=== PATIENT | female | born 1940 | race American Indian/Alaskan Native ===

== ENCOUNTER 2021-01-31 17:34 | Inpatient (IN) | payer MEDICARE ==
[2021-01-31 18:56] LABS: Basophils # (Auto) 0.1 K/mm3 (0.0-0.1); Basophils % (Auto) 1.4 % (0.0-1.8); Eosinophils # (Auto) 0.2 K/mm3 (0.0-0.4); Hematocrit 35.7 % (30.3-42.9); Hemoglobin 11.5 gm/dl (10.1-14.3); Lymphocytes # (Auto) 1.5 K/mm3 (1.2-5.4); Lymphocytes % (Auto) 15.2 % (13.4-35.0); Mean Corpuscular HGB Conc 32 % (30-34); Mean Corpuscular Volume 98 fl (79-97); Monocytes # (Auto) 1.4 K/mm3 (0.0-0.8); Monocytes % (Auto) 13.7 % (0.0-7.3); Platelet Count 215 K/mm3 (140-440); Red Blood Count 3.65 M/mm3 (3.65-5.03); Red Cell Distribution Width 16.1 % (13.2-15.2)
[2021-01-31 19:06] LABS: INR 0.98 (0.87-1.13)
[2021-01-31 19:07] LABS: Partial Thromboplastin Time 29.3 Sec. (24.2-36.6)
[2021-01-31 19:11] LABS: Albumin 4.3 g/dL (3.9-5); Calcium 9.6 mg/dL (8.4-10.2)
[2021-01-31] MEDS ORDERED: AZITHROMYCIN/NS 500 MG/250 ML 500 MG/250 ML BAG IV ONE (19:14)
[2021-01-31] MEDS ORDERED: cefTRIAXone/NS 2 GM/100 ML 2 GM/100 ML BAG IV ONE (19:14)
[2021-01-31] MEDS ORDERED: dexAMETHasone 20 MG/5 ML VIAL IV ONE (19:15)
--- NOTE | 2021-01-31 19:25 | Emergency Department Report ---
ED Shortness of Breath HPI - General Chief Complaint: Dyspnea/Respdistress Stated Complaint: HIGH BP Time Seen by Provider: 01/31/21 18:05 Source: patient Mode of arrival: Wheelchair Limitations: No Limitations - History of Present Illness Initial Comments: Patient is a 80-year-old F [place] female who is presenting with shortness of breath. Patient states has not been feeling well for approximately a week. Patient has had mild diarrhea cough and body aches. She has been having chills but has not taken her temperature. Patient has not been vaccinated against COVID-19 secondary to her having a history of Guillain-Flaherty. Patient does not get flu shots either. Patient states the cough is productive of clear sputum. Patient was advised to come to the hospital today after dialysis. She did receive her full dialysis. They are also concerned that her blood pressure was significantly elevated after dialysis. - Related Data Home Medications Medication Instructions Recorded Confirmed Last Taken Aspirin [Aspirin BABY CHEW TAB] 81 mg PO DAILY 03/30/14 12/09/20 12/05/20 20:00 Febuxostat [Uloric] 80 mg PO DAILY 03/30/14 12/09/20 12/05/20 20:00 Levothyroxine [Synthroid] 88 mcg PO DAILY 03/30/14 12/09/20 12/05/20 20:00 Metoprolol [Lopressor TAB] 50 mg PO DAILY 03/30/14 12/09/20 12/05/20 20:00 Montelukast [Singulair] 10 mg PO DAILY 03/30/14 12/09/20 12/05/20 20:00 Quetiapine Fumarate [QUEtiapine 300 mg PO DAILY 03/30/14 12/09/20 12/05/20 20:00 Fumarate] Rosuvastatin (Nf) [Crestor] 20 mg PO DAILY 03/30/14 12/09/20 12/05/20 20:00 clonazePAM 2 mg PO HS 03/30/14 12/09/20 12/05/20 20:00 sitaGLIPtin [Januvia] 50 mg PO DAILY 03/30/14 12/09/20 12/05/20 20:00 Insulin Detemir (Nf) [Levemir 20 unit SQ BID 05/28/14 12/09/20 12/05/20 20:00 Flextouch] Insulin Lispro [HumaLOG] 5 unit SQ DAILY 05/28/14 12/09/20 12/05/20 20:00 Promethazine [Phenergan] 25 mg PO Q6H PRN 05/28/14 12/09/20 12/05/20 20:00 Furosemide [Lasix] 40 mg PO DAILY 05/29/14 12/09/20 12/05/20 20:00 Tramadol HCl/Acetaminophen 1 each PO Q6HR PRN 05/29/14 12/09/20 12/05/20 20:00 [Tramadol-Acetaminophn 37.5-325] Previous Rx's Medication Instructions Recorded Last Taken Type Albuterol Mdi (or & Nicu Only) 2 puff IH QID PRN #1 inhalation 03/30/14 12/05/20 20:00 Rx [ProAir HFA Inhaler] Ciprofloxacin HCl [Cipro] 500 mg PO BID #10 tablet 05/29/14 12/05/20 20:00 Rx HYDROcodone/APAP 10-325 [[place] 1 each PO Q8HR PRN #20 tablet 05/29/14 12/05/20 20:00 Rx 10-325 mg TAB] Ondansetron [Zofran Odt] 4 mg PO Q8HR PRN #20 tab.rapdis 05/29/14 12/05/20 20:00 Rx Allergies Allergy/AdvReac Type Severity Reaction Status Date / Time celecoxib Allergy Unknown Verified 05/28/14 23:14 Sulfa (Sulfonamide AdvReac Nausea Verified 03/30/14 16:40 Antibiotics) ED Review of Systems ROS: Stated complaint: HIGH BP Other details as noted in HPI Comment: All other systems reviewed and negative ED Past Medical Hx - Past Medical History Previous Medical History?: Yes Hx Hypertension: Yes Hx Diabetes: Yes Hx Renal Disease: Yes (Dialysis T, Th, Sat) - Surgical History Past Surgical History?: Yes Hx Coronary Stent: Yes Additional Surgical History: stents 2008 - Social History Smoking Status: Never Smoker - Medications Home Medications: Home Medications Medication Instructions Recorded Confirmed Last Taken Type Albuterol Mdi (or & Nicu Only) 2 puff IH QID PRN #1 inhalation 03/30/14 12/09/20 12/05/20 20:00 Rx [ProAir HFA Inhaler] Aspirin [Aspirin BABY CHEW TAB] 81 mg PO DAILY 03/30/14 12/09/20 12/05/20 20:00 History Febuxostat [Uloric] 80 mg PO DAILY 03/30/14 12/09/20 12/05/20 20:00 History Levothyroxine [Synthroid] 88 mcg PO DAILY 03/30/14 12/09/20 12/05/20 20:00 History Metoprolol [Lopressor TAB] 50 mg PO DAILY 03/30/14 12/09/20 12/05/20 20:00 History Montelukast [Singulair] 10 mg PO DAILY 03/30/14 12/09/20 12/05/20 20:00 History Quetiapine Fumarate [QUEtiapine 300 mg PO DAILY 03/30/14 12/09/20 12/05/20 20:00 History Fumarate] Rosuvastatin (Nf) [Crestor] 20 mg PO DAILY 03/30/14 12/09/20 12/05/20 20:00 History clonazePAM 2 mg PO HS 03/30/14 12/09/20 12/05/20 20:00 History sitaGLIPtin [Januvia] 50 mg PO DAILY 03/30/14 12/09/20 12/05/20 20:00 History Insulin Detemir (Nf) [Levemir 20 unit SQ BID 05/28/14 12/09/20 12/05/20 20:00 History Flextouch] Insulin Lispro [HumaLOG] 5 unit SQ DAILY 05/28/14 12/09/20 12/05/20 20:00 History Promethazine [Phenergan] 25 mg PO Q6H PRN 05/28/14 12/09/20 12/05/20 20:00 History Ciprofloxacin HCl [Cipro] 500 mg PO BID #10 tablet 05/29/14 12/09/20 12/05/20 20:00 Rx Furosemide [Lasix] 40 mg PO DAILY 05/29/14 12/09/20 12/05/20 20:00 History HYDROcodone/APAP 10-325 [[place] 1 each PO Q8HR PRN #20 tablet 05/29/14 12/09/20 12/05/20 20:00 Rx 10-325 mg TAB] Ondansetron [Zofran Odt] 4 mg PO Q8HR PRN #20 tab.rapdis 05/29/14 12/09/20 0 12/05/20 20:00 Rx Tramadol HCl/Acetaminophen 1 each PO Q6HR PRN 05/29/14 12/09/20 12/05/20 20:00 History [Tramadol-Acetaminophn 37.5-325] ED Physical Exam - General Limitations: No Limitations General appearance: alert, in no apparent distress - Head Head exam: Present: atraumatic, normocephalic - Eye Eye exam: Present: normal appearance, PERRL, EOMI - ENT ENT exam: Present: mucous membranes moist - Neck Neck exam: Present: normal inspection - Respiratory Respiratory exam: Present: normal lung sounds bilaterally, respiratory distress (constant cough), rhonchi. Absent: wheezes, rales - Cardiovascular Cardiovascular Exam: Present: regular rate, normal rhythm, normal heart sounds. Absent: systolic murmur, diastolic murmur, rubs, gallop - GI/Abdominal GI/Abdominal exam: Present: soft, normal bowel sounds. Absent: distended, tenderness, guarding, rebound - Extremities Exam Extremities exam: Present: normal inspection - Back Exam Back exam: Present: normal inspection - Neurological Exam Neurological exam: Present: alert, oriented X3 - Psychiatric Psychiatric exam: Present: normal affect, normal mood - Skin Skin exam: Present: warm, dry, intact, normal color. Absent: rash ED Course Vital Signs 01/31/21 01/31/21 17:53 18:41 Temperature 99.1 F Pulse Rate 78 74 Respiratory 20 Rate Blood Pressure 174/68 185/71 O2 Sat by Pulse 91 Oximetry ED Medical Decision Making - Lab Data Result diagrams: 01/31/21 18:34 01/31/21 18:34 Lab Results 01/31/21 01/31/21 01/31/21 Range/Units 18:34 18:34 18:34 WBC 10.0 (4.5-11.0) K/mm3 RBC 3.65 (3.65-5.03) M/mm3 Hgb 11.5 (10.1-14.3) gm/dl Hct 35.7 (30.3-42.9) % MCV 98 H (79-97) fl MCH 31 (28-32) pg MCHC 32 (30-34) % RDW 16.1 H (13.2-15.2) % Plt Count 215 (140-440) K/mm3 Lymph % (Auto) 15.2 (13.4-35.0) % [place] % (Auto) 13.7 H (0.0-7.3) % Eos % (Auto) 2.0 (0.0-4.3) % Baso % (Auto) 1.4 (0.0-1.8) % Lymph # (Auto) 1.5 (1.2-5.4) K/mm3 [place] # (Auto) 1.4 H (0.0-0.8) K/mm3 Eos # (Auto) 0.2 (0.0-0.4) K/mm3 Baso # (Auto) 0.1 (0.0-0.1) K/mm3 Seg Neutrophils % 67.7 (40.0-70.0) % Seg Neutrophils # 6.8 (1.8-7.7) K/mm3 PT 14.1 (12.2-14.9) Sec. INR 0.98 (0.87-1.13) APTT 29.3 (24.2-36.6) Sec. Sodium 141 (137-145) mmol/L Potassium 5.6 H (3.6-5.0) mmol/L Chloride 100.4 (98-107) mmol/L Carbon Dioxide 25 (22-30) mmol/L Anion Gap 21 mmol/L BUN 11 (7-17) mg/dL Creatinine 3.3 H (0.6-1.2) mg/dL Estimated GFR 16 ml/min BUN/Creatinine Ratio 3 % Glucose 105 H (65-100) mg/dL Calcium 9.6 (8.4-10.2) mg/dL Total Bilirubin 0.70 (0.1-1.2) mg/dL AST 68 H (5-40) units/L ALT 18 (7-56) units/L Alkaline Phosphatase 112 (35-129) units/L Total Protein 6.9 (6.3-8.2) g/dL Albumin 4.3 (3.9-5) g/dL Albumin/Globulin Ratio 1.7 % - Radiology Data Chest x-ray reviewed by me and it appears that the patient has a right middle and lower lobe infiltrate. Also some other hazy patchy infiltrates present. Possible the patient may have Covid pneumonia. - Medical Decision Making We will place the patient on oxygen. Patient given Decadron Rocephin azithromycin. Will admit the patient for further management and patient will be tested for Covid. Critical care attestation.: If time is entered above; I have spent that time in minutes in the direct care of this critically ill patient, excluding procedure time. ED Disposition Clinical Impression: Suspected COVID-19 virus infection, Pneumonia, Hypoxia, ESRD (end stage renal disease) Disposition: ADMITTED INPATIENT Is pt being admited?: Yes Does the pt Need Aspirin: No Condition: Stable Instructions: Bacterial Pneumonia (ED) Time of Disposition: 19:25
[2021-01-31 20:01] LABS: C-Reactive Protein 2.7 mg/dL (0.00-1.30)
--- NOTE | 2021-01-31 20:08 | XRay Report ---
CHEST 2 VIEWS INDICATION / CLINICAL INFORMATION: dyspnea, cough. COMPARISON: None available. FINDINGS: SUPPORT DEVICES: None. HEART / MEDIASTINUM: No significant abnormality. LUNGS / PLEURA: Mild pulmonary vascular indistinctness. There are bibasilar opacities with small left and trace right pleural effusion. No pneumothorax. ADDITIONAL FINDINGS: No significant additional findings. IMPRESSION: 1. Findings suggesting mild pulmonary edema. Signer Name: Sunny Obregon DO Signed: 01/31/2021 8:04 PM Workstation Name: [id number]
--- NOTE | 2021-01-31 20:19 | History and Physical Report ---
History of Present Illness Chief complaint: I do not feel good History of present illness: 80 YO Female with ESRD on HD(T,R,Sa), DM, HTN, HLD, Hypothyroidism, CAD S/P Stent Placement, Vascular Dementia, Cerebral Atherosclerosis, Obesity Hypoventilation Syndrome presents ED for evaluation. Patient reports "I do not feel good". Patient states that she had experienced dry cough, body aches, malaise, fatigue, diminished exercise tolerance, subjective fever, diminished sense of smell, diminished sense of taste over the past 1 week with persistent and worsening symptoms over the same timeframe. Patient transported to [facility] via private vehicle for further care and evaluation of the aforementioned symptoms. The patient was seen and evaluated in the emergency department. All lab and imaging studies reviewed. Patient was found to have a pulse oximetry of 86% on exertion which is consistent with acute hypoxemic respiratory failure. Chest x- ray revealed bilateral pneumonia. Patient admitted to medical floor and initiated on pneumonia protocol as well as coronavirus protocol. No reports of chills, chest pain, palpitation, skin rash, recent ill contacts, trauma. Prior admission on 12-25 reviewed. All medication listed at time of admission has been reconciled. Patient is not vaccinated against COVID-19. Advanced care planning conducted in ED. Past History Past Medical History: diabetes, ESRD, hypertension Past Surgical History: Other (Dialysis access) Social history: . denies: smoking, alcohol abuse Family history: diabetes, hypertension Medications and Allergies Allergies Allergy/AdvReac Type Severity Reaction Status Date / Time celecoxib Allergy Unknown Verified 05/28/14 23:14 Sulfa (Sulfonamide AdvReac Nausea Verified 03/30/14 16:40 Antibiotics) Home Medications Medication Instructions Recorded Confirmed Last Taken Type Albuterol Mdi (or & Nicu Only) 2 puff IH QID PRN #1 inhalation 03/30/14 12/09/20 12/05/20 20:00 Rx [ProAir HFA Inhaler] Aspirin [Aspirin BABY CHEW TAB] 81 mg PO DAILY 03/30/14 12/09/20 12/05/20 20:00 History Febuxostat [Uloric] 80 mg PO DAILY 03/30/14 12/09/20 12/05/20 20:00 History Levothyroxine [Synthroid] 88 mcg PO DAILY 03/30/14 12/09/20 12/05/20 20:00 History Metoprolol [Lopressor TAB] 50 mg PO DAILY 03/30/14 12/09/20 12/05/20 20:00 History Montelukast [Singulair] 10 mg PO DAILY 03/30/14 12/09/20 12/05/20 20:00 History Quetiapine Fumarate [QUEtiapine 300 mg PO DAILY 03/30/14 12/09/20 12/05/20 20:00 History Fumarate] Rosuvastatin (Nf) [Crestor] 20 mg PO DAILY 03/30/14 12/09/20 12/05/20 20:00 History clonazePAM 2 mg PO HS 03/30/14 12/09/20 12/05/20 20:00 History sitaGLIPtin [Januvia] 50 mg PO DAILY 03/30/14 12/09/20 12/05/20 20:00 History Insulin Detemir (Nf) [Levemir 20 unit SQ BID 05/28/14 12/09/20 12/05/20 20:00 History Flextouch] Insulin Lispro [HumaLOG] 5 unit SQ DAILY 05/28/14 12/09/20 12/05/20 20:00 History Promethazine [Phenergan] 25 mg PO Q6H PRN 05/28/14 12/09/20 12/05/20 20:00 History Ciprofloxacin HCl [Cipro] 500 mg PO BID #10 tablet 05/29/14 12/09/20 12/05/20 20:00 Rx Furosemide [Lasix] 40 mg PO DAILY 05/29/14 12/09/20 12/05/20 20:00 History HYDROcodone/APAP 10-325 [[place] 1 each PO Q8HR PRN #20 tablet 05/29/14 12/09/20 12/05/20 20:00 Rx 10-325 mg TAB] Ondansetron [Zofran Odt] 4 mg PO Q8HR PRN #20 tab.rapdis 05/29/14 12/09/20 12/05/20 20:00 Rx Tramadol HCl/Acetaminophen 1 each PO Q6HR PRN 05/29/14 12/09/20 12/05/20 20:00 History [Tramadol-Acetaminophn 37.5-325] Review of Systems Constitutional: fever, weakness, malaise, lethargy, no weight loss Ears, nose, mouth and throat: other (Diminished sense of smell, diminished sense of taste), no ear pain, no ear discharge, no decreased hearing, no nose pain, no nasal congestion Cardiovascular: no chest pain, no palpitations, no edema, no syncope Respiratory: cough, shortness of breath Gastrointestinal: no abdominal pain, no nausea, no vomiting, no diarrhea Genitourinary Female: no pelvic pain, no flank pain, no dysuria, no urinary frequency, no urgency Rectal: no pain, no incontinence, no bleeding Musculoskeletal: no neck stiffness, no neck pain, no shooting arm pain, no low back pain, no shooting leg pain Integumentary: no rash, no pruritis, no redness, no wounds Neurological: no head injury, no transient paralysis, no parathesias, no numbness Psychiatric: no anxiety, no sleep disturbances, no change in appetite, no change in libido, no suicidal ideation Endocrine: no cold intolerance, no polyphagia, no polyuria, no nocturia, no excessive sweating Hematologic/Lymphatic: no easy bruising, no easy bleeding Allergic/Immunologic: no urticaria, no allergic rhinitis, no wheezing Exam - Constitutional Vitals: Temp Pulse Resp BP Pulse Ox 99.1 F 74 20 185/71 91 01/31/21 17:53 01/31/21 18:41 01/31/21 17:53 01/31/21 18:41 01/31/21 17:53 General appearance: Present: mild distress - EENT Eyes: Present: PERRL ENT: hearing intact, clear oral mucosa - Neck Neck: Present: supple, normal ROM - Respiratory Respiratory effort: labored, accessory muscle use, stridor Respiratory: bilateral: diminished, rhonchi - Cardiovascular Heart Sounds: Present: S1 & S2. Absent: rub, click - Extremities Extremities: pulses symmetrical, No edema Peripheral Pulses: within normal limits - Abdominal General gastrointestinal: Present: soft, non-tender, non-distended, normal bowel sounds Female genitourinary: Present: normal - Integumentary Integumentary: Present: clear, warm, dry - Musculoskeletal Musculoskeletal: gait normal, strength equal bilaterally - Psychiatric Psychiatric: appropriate mood/affect, intact judgment & insight - Neurologic Neurologic: CNII-XII intact, moves all extremities Results - Labs CBC & Chem 7: 01/31/21 18:34 01/31/21 18:34 Labs: Abnormal lab results 01/31/21 01/31/21 01/31/21 Range/Units 18:34 18:34 19:28 MCV 98 H (79-97) fl RDW 16.1 H (13.2-15.2) % [place] % (Auto) 13.7 H (0.0-7.3) % [place] # (Auto) 1.4 H (0.0-0.8) K/mm3 D-Dimer 594.70 H (0-234) ng/mlDDU Potassium 5.6 H (3.6-5.0) mmol/L Creatinine 3.3 H (0.6-1.2) mg/dL Glucose 105 H (65-100) mg/dL Ferritin (10.0-200.0) ng/mL AST 68 H (5-40) units/L Lactate Dehydrogenase (91-180) units/L C-Reactive Protein (0.00-1.30) mg/dL 01/31/21 01/31/21 Range/Units 19:28 19:28 MCV (79-97) fl RDW (13.2-15.2) % [place] % (Auto) (0.0-7.3) % [place] # (Auto) (0.0-0.8) K/mm3 D-Dimer (0-234) ng/mlDDU Potassium (3.6-5.0) mmol/L Creatinine (0.6-1.2) mg/dL Glucose (65-100) mg/dL Ferritin 959.7 H (10.0-200.0) ng/mL AST (5-40) units/L Lactate Dehydrogenase 321 H (91-180) units/L C-Reactive Protein 2.70 H (0.00-1.30) mg/dL Assessment and Plan - Patient Problems (1) Acute hypoxemic respiratory failure Status: Acute Plan to address problem: Chest x-ray, supplemental oxygen, pulse oximetry, nebulizer therapy, pulmonary toilet. Noninvasive positive pressure ventilation as clinically indicated patient is unable to maintain pulse oximetry on supplemental oxygen via nasal c annula. (2) Suspected 2019 novel coronavirus infection Status: Acute Plan to address problem: Coronavirus protocol: IV steroid therapy, IV antibiotic therapy, supplemental oxygen, pulse oximetry, vitamin D therapy, vitamin C therapy, zinc therapy, prone positioning while in bed, pulmonary toilet. Prophylactic anticoagulation. (3) Pneumonia Status: Acute Plan to address problem: Pneumonia protocol: Chest x-ray, CBC, CMP, IV antibiotic therapy, supplemental o xygen, pulse oximetry, nebulizer therapy (4) End stage renal disease Status: Acute Plan to address problem: Nephrology team consulted in ED, strict I's/O, monitor urine output every shift, (5) Hypertension Status: Acute Qualifiers: Hypertension type: primary hypertension Qualified Code(s): I10 - Essential (primary) hypertension Plan to address problem: Monitor blood pressure every shift, continue medical management. (6) Diabetes Status: Acute Plan to address problem: Consistent carbohydrate diet, Accu-Chek, hypoglycemia protocol, insulin protocol. (7) Hyperlipidemia Status: Acute Qualifiers: Hyperlipidemia type: mixed hyperlipidemia Qualified Code(s): E78.2 - Mixed hyperlipidemia Plan to address problem: Statin therapy, low-cholesterol diet, supportive care. (8) Hypothyroidism Status: Acute Qualifiers: Hypothyroidism type: unspecified Qualified Code(s): E03.9 - Hypothyroidism, unspecified Plan to address problem: Continue Synthroid therapy, supportive care, continue medical management (9) DVT prophylaxis Status: Acute Plan to address problem: SCD bilateral lower extremities while in bed, prophylactic anticoagulation (10) Advance care planning Status: Acute Plan to address problem: Disease education conducted, care plan discussed, diagnoses discussed, patient is full code, patient knowledges understanding and agreement with care plan, +30 minutes.
[2021-01-31] MEDS ORDERED: ONDANSETRON 4 MG/2 ML INJ IV PRN (20:20)
[2021-01-31] MEDS ORDERED: HYDROmorphone 1 MG/1 ML INJ IV PRN (20:20)
[2021-01-31] MEDS ORDERED: ALBUTEROL 2.5 MG/3 ML NEBU IH PRN (20:20)
[2021-01-31] MEDS ORDERED: oxyCODONE /ACETAMINOPHEN 5-325MG TAB PO PRN (20:20)
[2021-01-31] MEDS ORDERED: ACETAMINOPHEN 325 MG TAB PO PRN (20:20)
[2021-01-31] MEDS ORDERED: PROMETHAZINE 25 MG TAB PO PRN (20:24)
[2021-01-31] MEDS ORDERED: DEXTROSE 50% IN WATER (25GM) 50 ML SYRINGE IV PRN (20:30)
[2021-01-31] MEDS ORDERED: AZITHROMYCIN/NS 500 MG/250 ML 500 MG/250 ML BAG IV SCH (21:00)
[2021-01-31] MEDS: HEPARIN 5,000 UNIT/1 ML VIAL SUB-Q SCH (23:10)
[2021-01-31] MEDS: ASCORBIC ACID 500 MG TAB PO SCH (23:11)
[2021-01-31] MEDS: methylPREDNISolone Sod Succinate 40 MG/1 ML INJ IV SCH (23:11)
[2021-01-31] MEDS: ZINC SULFATE 220 MG CAP PO SCH (23:11)
[2021-01-31] MEDS: cefTRIAXone/NS 2 GM/100 ML 2 GM/100 ML BAG IV SCH (23:12)
[2021-02-01] MEDS: INSULIN LISPRO 100 UNIT/ML SUB-Q SCH ×4 (00:30→17:13)
[2021-02-01] MEDS: methylPREDNISolone Sod Succinate 40 MG/1 ML INJ IV SCH ×3 (05:51→22:26)
[2021-02-01 06:37] LABS: Basophils % (Auto) 0.7 % (0.0-1.8); Eosinophils % (Auto) 0.1 % (0.0-4.3); Hematocrit 34.8 % (30.3-42.9); Hemoglobin 11.1 gm/dl (10.1-14.3); Lymphocytes # (Auto) 0.9 K/mm3 (1.2-5.4); Lymphocytes % (Auto) 13.9 % (13.4-35.0); Mean Corpuscular HGB Conc 32 % (30-34); Mean Corpuscular Volume 97 fl (79-97); Monocytes # (Auto) 0.1 K/mm3 (0.0-0.8); Monocytes % (Auto) 1.4 % (0.0-7.3); Platelet Count 203 K/mm3 (140-440); Red Blood Count 3.57 M/mm3 (3.65-5.03); Red Cell Distribution Width 15.6 % (13.2-15.2)
[2021-02-01 06:53] LABS: Albumin 3.9 g/dL (3.9-5); Calcium 9.1 mg/dL (8.4-10.2)
--- NOTE | 2021-02-01 08:03 | Consultation ---
History of Present Illness - Reason for Consult Consult date: 02/01/21 end stage renal disease - History of Present Illness The patient is a 80 YO female with history significant for Obesity, DM, HTN, Anemia, Dementia, CAD s/p stent and ESRD on HD(TTS) who presented to [facility] ED 01/31 with c/o sob. Patient is a poor historian and there was no family member at the bedside. Patient reports cough, orthopnea, malaise and fatigue. Pt was found hypoxic in ED. CXR showed mild pulmonary edema. Labs and vitals reviewed. Nephrology was consulted for ESRD management. Past History Past Medical History: anemia, diabetes, dialysis, ESRD, hypertension Past Surgical History: Other (Dialysis access) Social history: . denies: smoking, alcohol abuse Family history: diabetes, hypertension Medications and Allergies Allergies Allergy/AdvReac Type Severity Reaction Status Date / Time celecoxib Allergy Unknown Verified 05/28/14 23:14 Sulfa (Sulfonamide AdvReac Nausea Verified 03/30/14 16:40 Antibiotics) Home Medications Medication Instructions Recorded Confirmed Last Taken Type Albuterol Mdi (or & Nicu Only) 2 puff IH QID PRN #1 inhalation 03/30/14 12/09/20 12/05/20 20:00 Rx [ProAir HFA Inhaler] Aspirin [Aspirin BABY CHEW TAB] 81 mg PO DAILY 03/30/14 02/01/21 01/30/21 08:40 History Febuxostat [Uloric] 80 mg PO DAILY 03/30/14 12/09/20 12/05/20 20:00 History Levothyroxine [Synthroid] 88 mcg PO DAILY 03/30/14 02/01/21 01/30/21 06:30 History Metoprolol [Lopressor TAB] 50 mg PO DAILY 03/30/14 12/09/20 12/05/20 20:00 History Montelukast [Singulair] 10 mg PO DAILY 03/30/14 12/09/20 12/05/20 20:00 History Quetiapine Fumarate [QUEtiapine 300 mg PO DAILY 03/30/14 02/01/21 01/30/21 21:00 History Fumarate] Rosuvastatin (Nf) [Crestor] 20 mg PO DAILY 03/30/14 02/01/21 12/05/20 20:00 History clonazePAM 2 mg PO HS 03/30/14 02/01/21 01/31/21 23:00 History sitaGLIPtin [Januvia] 50 mg PO DAILY 03/30/14 02/01/21 01/30/21 08:30 History Insulin Detemir (Nf) [Levemir 20 unit SQ BID 05/28/14 12/09/20 12/05/20 20:00 History Flextouch] Insulin Lispro [HumaLOG] 5 unit SQ DAILY 05/28/14 02/01/21 01/30/21 20:45 History Promethazine [Phenergan] 25 mg PO Q6H PRN 05/28/14 12/09/20 12/05/20 20:00 History Ciprofloxacin HCl [Cipro] 500 mg PO BID #10 tablet 05/29/14 12/09/20 12/05/20 20:00 Rx Furosemide [Lasix] 40 mg PO DAILY 05/29/14 12/09/20 12/05/20 20:00 History HYDROcodone/APAP 10-325 [[place] 1 each PO Q8HR PRN #20 tablet 05/29/14 02/01/21 01/30/21 20:00 Rx 10-325 mg TAB] Ondansetron [Zofran Odt] 4 mg PO Q8HR PRN #20 tab.rapdis 05/29/14 02/01/21 01/29/21 20:00 Rx Tramadol HCl/Acetaminophen 1 each PO Q6HR PRN 05/29/14 12/09/20 12/05/20 20:00 History [Tramadol-Acetaminophn 37.5-325] Active Meds: Active Medications Acetaminophen (Acetaminophen 325 Mg Tab) 650 mg PO Q4H PRN PRN Reason: Pain MILD(1-3)/Fever >100.5/LOBATO Albuterol (Albuterol 2.5 Mg/3 Ml Nebu) 2.5 mg IH Q4HRT PRN PRN Reason: Shortness Of Breath Ascorbic Acid (Ascorbic Acid 500 Mg Tab) 500 mg PO BID [facility] Last Admin: 01/31/21 23:11 Dose: 500 mg Documented by: Aspirin (Aspirin 81 Mg Tab Chew) 81 mg PO DAILY [facility] Atorvastatin Calcium (Atorvastatin 40 Mg Tab) 40 mg PO QHS [facility] Cholecalciferol (Cholecalciferol (Vit D3) 400 Unit Tab) 1,000 unit PO QDAY [facility] Clonazepam (Clonazepam 2 Mg Tab) 2 mg PO HS [facility] Last Admin: 01/31/21 23:11 Dose: 2 mg Documented by: Dextrose (Dextrose 50% In Water (25gm) 50 Ml Syringe) 50 ml IV Q30MIN PRN; Protocol PRN Reason: Hypoglycemia Furosemide (Furosemide 40 Mg Tab) 40 mg PO DAILY [facility] Heparin Sodium (Porcine) (Heparin 5,000 Unit/1 Ml Vial) 5,000 unit SUB-Q Q12HR [facility] Last Admin: 01/31/21 23:10 Dose: 5,000 unit Documented by: Hydromorphone HCl (Hydromorphone 1 Mg/1 Ml Inj) 0.5 mg IV Q23H PRN PRN Reason: Pain , Severe (7-10) Ceftriaxone Sodium (Rocephin/Ns 2 Gm/100 Ml) 2 gm in 100 mls @ 200 mls/hr IV Q24H [facility]; Protocol Stop: 02/04/21 21:29 Last Admin: 01/31/21 23:12 Dose: Not Given Documented by: Azithromycin (Zithromax/Ns) 500 mg in 250 mls @ 250 mls/hr IV Q24H [facility]; Protocol Stop: 02/04/21 20:59 Insulin Human Lispro (Insulin Lispro 100 Unit/Ml) 0 unit SUB-Q Q6HR [facility]; Protocol Last Admin: 02/01/21 05:51 Dose: 3 unit Documented by: Levothyroxine Sodium (Levothyroxine 88 Mcg Tab) 88 mcg PO DAILY [facility] Methylprednisolone Sodium Succinate (Methylprednisolone Sod Succinate 40 Mg/1 Ml Inj) 40 mg IV Q8HR [facility] Last Admin: 02/01/21 05:51 Dose: 40 mg Documented by: Metoprolol Tartrate (Metoprolol Tartrate 50 Mg Tab) 50 mg PO DAILY [facility] Miscellaneous Medication (Febuxostat [Uloric]) 80 mg PO DAILY [facility] Montelukast Sodium (Montelukast 10 Mg Tab) 10 mg PO DAILY [facility] Ondansetron HCl (Ondansetron 4 Mg/2 Ml Inj) 4 mg IV Q8H PRN PRN Reason: Nausea And Vomiting Oxycodone/Acetaminophen (Oxycodone /Acetaminophen 5-325mg Tab) 1 tab PO Q16H PRN PRN Reason: Pain, Moderate (4-6) Promethazine HCl (Promethazine 25 Mg Tab) 25 mg PO Q6H PRN PRN Reason: Nausea Quetiapine Fumarate (Quetiapine 100 Mg Tab) 300 mg PO DAILY [facility] Sodium Chloride (Sodium Chloride 0.9% 10 Ml Flush Syringe) 10 ml IV BID [facility] Last Admin: 01/31/21 23:13 Dose: 10 ml Documented by: Sodium Chloride (Sodium Chloride 0.9% 10 Ml Flush Syringe) 10 ml IV PRN PRN PRN Reason: LINE FLUSH Zinc Sulfate (Zinc Sulfate 220 Mg Cap) 220 mg PO BID [facility] Last Admin: 01/31/21 23:11 Dose: 220 mg Documented by: Review of Systems ROS unobtainable: due to mental status Exam - Vital Signs Vital signs: Vital Signs Temp Pulse Resp BP Pulse Ox 99.1 F 78 20 174/68 91 01/31/21 17:53 01/31/21 17:53 01/31/21 17:53 01/31/21 17:53 01/31/21 17:53 Results - Lab Results 02/01/21 Unknown 02/01/21 Unknown Most recent lab results Calcium 9.1 mg/dL (8.4-10.2) 02/01/21 Unknown Assessment and Plan 1. ESRD: Patient is on maintenance hemodialysis three times a week, TTS schedule. Last outpatient hemodialysis 01/31. Hemodialysis: UF only today. 2. FEN: Volume overload, UF today. Hypokalemia, improved, monitor. Monitor. 3. Acute hypoxic resp failure, POA: Likely 2/2 volume overload. Covid-19 test negative. Supplemental O2. Volume control thru HD. Monitor. 4. Anemia, POA: Epogen with HD as needed. 5. DM type 2. 6. Hypertension: Monitor BP. Adjust meds as needed. Subjective: Patient was seen and examined at the bedside. Examination: General appearance: well-developed, obese, appears stated age, not in distress HEENT: ATNC Neck: trachea midline Respiratory: faint rales heard Heart: regular, S1S2, no murmur Abdomen: soft, obese, normoactive bowel sounds, not tender Integumentary: no obvious rash Neurologic: alert, confused, able to move extremities Ext: slight edema of both feet Hemodialysis access: L arm AVF
[2021-02-01] MEDS ORDERED: FEBUXOSTAT 80 MG PO SCH (10:00)
[2021-02-01] MEDS ORDERED: NON-FORMULARY EACH (Rosuvastatin (Nf) 20 MG Tablet) PO SCH (10:00)
[2021-02-01] MEDS: HEPARIN 5,000 UNIT/1 ML VIAL SUB-Q SCH ×2 (10:20→22:26)
[2021-02-01] MEDS: CHOLECALCIFEROL (VIT D3) 400 UNIT TAB PO SCH (10:24)
[2021-02-01] MEDS: LEVOTHYROXINE 88 MCG TAB PO SCH (10:24)
[2021-02-01] MEDS: ASPIRIN 81 MG TAB CHEW PO SCH (10:24)
[2021-02-01] MEDS: QUEtiapine 100 MG TAB PO SCH (10:24)
[2021-02-01] MEDS: ZINC SULFATE 220 MG CAP PO SCH ×2 (10:25→22:30)
[2021-02-01] MEDS: FUROSEMIDE 40 MG TAB PO SCH (10:25)
[2021-02-01] MEDS: MONTELUKAST 10 MG TAB PO SCH (10:25)
[2021-02-01] MEDS: METOPROLOL TARTRATE 50 MG TAB PO SCH (10:25)
[2021-02-01] MEDS: ASCORBIC ACID 500 MG TAB PO SCH ×2 (10:25→22:26)
[2021-02-01 10:51] LABS: Hepatitis C Virus Antibody Non-Reactive (NonReactive)
[2021-02-01] MEDS ORDERED: HEPARIN 10,000 UNITS/10 ML VIAL IV PRN (10:53)
[2021-02-01] MEDS ORDERED: SODIUM CHLORIDE 0.9% 100 ML IV PRN (10:53)
[2021-02-01 10:54] LABS: Hepatitis B Surface Antigen Nonreactive (Negative)
--- NOTE | 2021-02-01 10:57 | Event Note ---
Date: 02/01/21 Hemodialysis consent obtained from patient.
--- NOTE | 2021-02-01 13:12 | Progress Note ---
Assessment and Plan -- Acute hypoxemic respiratory failure likely due to volume overload, HD per renal, supplemental O2 Noninvasive positive pressure ventilation as clinically indicated patient is unable to maintain pulse oximetry on supplemental oxygen via nasal cannula. -- Suspected 2019 novel coronavirus infection Pending COVID test, cont covid protocol -- Pneumonia Pneumonia protocol: Chest x-ray, IV antibiotic therapy, supplemental oxygen, pulse oximetry, nebulizer therapy -- End stage renal disease Nephrology team consulted in ED, strict I's/O, monitor urine output every shift, -- Hypertension Monitor blood pressure every shift, continue medical management. --Diabetes type 2 Consistent carbohydrate diet, Accu-Chek, hypoglycemia protocol, insulin protocol. -- Hyperlipidemia Statin therapy, low-cholesterol diet, supportive care. -- Hypothyroidism Continue Synthroid therapy, supportive care, continue medical management -- DVT prophylaxis SCD bilateral lower extremities while in bed, prophylactic anticoagulation --Full code status Daily clinical course: 02/01/21: Pt on 4L o2, s/p HD today, cont home meds, plan for HD again tomorrow Subjective Date of service: 02/01/21 Interval history: Patient seen and examined. Medical records and medication list reviewed. No acute event overnight noted by the RN. Patient On nasal cannula O2. Patient is tolerating diet. Plan for hemodialysis today Discussed plan of care at bedside with patient. Objective - Exam Narrative Exam: GENERAL: well-developed and well-nourished morbidly obese lying on bed appea red to be in mild discomfort. HEENT: Normocephalic. Atraumatic. No conjunctival congestion or icterus. Patient has moist mucous membranes. NECK: Supple. Trachea midline. CHEST/LUNGS: coarse BS auscultated bilaterally, breathing on n/c. HEART/CARDIOVASCULAR: Regular in rate and rhythm. S1 and S2 positive. ABDOMEN: Abdomen is soft, nontender. Patient has normal bowel sounds. SKIN: There is no rash. Warm and dry. NEURO: No focal motor deficit. Follows command. MUSCULOSKELETAL: No joint effusion or tenderness. EXTRIMITY: No edema, no cyanosis or clubbing. PSYCH: Cooperative. - Constitutional Vitals: Vital Signs - 12hr 02/01/21 02/01/21 02/01/21 05:42 10:22 10:23 Temperature 98.4 F Pulse Rate 92 H 79 79 Respiratory 18 18 Rate Blood Pressure 150/74 140/45 O2 Sat by Pulse 96 99 99 Oximetry 02/01/21 02/01/21 10:25 10:36 Temperature 98.9 F Pulse Rate 79 Respiratory Rate Blood Pressure 140/45 O2 Sat by Pulse Oximetry - Labs CBC & Chem 7: 02/01/21 Unknown 02/03/21 04:00 Labs: Abnormal lab results 01/31/21 01/31/21 01/31/21 Range/Units 18:34 18:34 19:28 RBC (3.65-5.03) M/mm3 MCV 98 H (79-97) fl RDW 16.1 H (13.2-15.2) % [place] % (Auto) 13.7 H (0.0-7.3) % Lymph # (Auto) (1.2-5.4) K/mm3 [place] # (Auto) 1.4 H (0.0-0.8) K/mm3 Seg Neutrophils % (40.0-70.0) % D-Dimer 594.70 H (0-234) ng/mlDDU Potassium 5.6 H (3.6-5.0) mmol/L Creatinine 3.3 H (0.6-1.2) mg/dL Glucose 105 H (65-100) mg/dL POC Glucose (70-105) mg/dL Lactic Acid (0.7-2.0) mmol/L Ferritin (10.0-200.0) ng/mL AST 68 H (5-40) units/L Lactate Dehydrogenase (91-180) units/L C-Reactive Protein (0.00-1.30) mg/dL 01/31/21 01/31/21 01/31/21 Range/Units 19:28 19:28 22:29 RBC (3.65-5.03) M/mm3 MCV (79-97) fl RDW (13.2-15.2) % [place] % (Auto) (0.0-7.3) % Lymph # (Auto) (1.2-5.4) K/mm3 [place] # (Auto) (0.0-0.8) K/mm3 Seg Neutrophils % (40.0-70.0) % D-Dimer (0-234) ng/mlDDU Potassium (3.6-5.0) mmol/L Creatinine (0.6-1.2) mg/dL Glucose (65-100) mg/dL POC Glucose (70-105) mg/dL Lactic Acid 2.10 H* (0.7-2.0) mmol/L Ferritin 959.7 H (10.0-200.0) ng/mL AST (5-40) units/L Lactate Dehydrogenase 321 H (91-180) units/L C-Reactive Protein 2.70 H (0.00-1.30) mg/dL 01/31/21 02/01/21 02/01/21 Range/Units 22:59 05:51 10:58 RBC (3.65-5.03) M/mm3 MCV (79-97) fl RDW (13.2-15.2) % [place] % (Auto) (0.0-7.3) % Lymph # (Auto) (1.2-5.4) K/mm3 [place] # (Auto) (0.0-0.8) K/mm3 Seg Neutrophils % (40.0-70.0) % D-Dimer (0-234) ng/mlDDU Potassium (3.6-5.0) mmol/L Creatinine (0.6-1.2) mg/dL Glucose (65-100) mg/dL POC Glucose 176 H 178 H 189 H (70-105) mg/dL Lactic Acid (0.7-2.0) mmol/L Ferritin (10.0-200.0) ng/mL AST (5-40) units/L Lactate Dehydrogenase (91-180) units/L C-Reactive Protein (0.00-1.30) mg/dL 02/01/21 02/01/21 Range/Units Unknown Unknown RBC 3.57 L (3.65-5.03) M/mm3 MCV (79-97) fl RDW 15.6 H (13.2-15.2) % [place] % (Auto) (0.0-7.3) % Lymph # (Auto) 0.9 L (1.2-5.4) K/mm3 [place] # (Auto) (0.0-0.8) K/mm3 Seg Neutrophils % 83.9 H (40.0-70.0) % D-Dimer (0-234) ng/mlDDU Potassium (3.6-5.0) mmol/L Creatinine 3.9 H (0.6-1.2) mg/dL Glucose 195 H (65-100) mg/dL POC Glucose (70-105) mg/dL Lactic Acid (0.7-2.0) mmol/L Ferritin (10.0-200.0) ng/mL AST (5-40) units/L Lactate Dehydrogenase (91-180) units/L C-Reactive Protein (0.00-1.30) mg/dL
--- NOTE | 2021-02-01 13:36 | Consultation ---
History of Present Illness - Reason for Consult Consult date: 02/01/21 PUI COVID Requesting physician: ANNA LOPEZ - History of Present Illness The patient is a 80-year-old female with ESRD on HD, diabetes, hypertension, coronary artery disease, vascular dementia, prior CVA was admitted to the hospital with not feeling well. She has been having dry cough, body aches. Upon evaluation in the ER, chest x-ray revealed bilateral pneumonia, also hypoxic with saturation of 86%. COVID-19 unvaccinated. Admitted as possible COVID-19 PUI. Infectious diseases was consulted for additional evaluation. No fever. Labs revealed normal WBC, D-dimer 594, ferritin 959, CRP 2.7, AST 68. Review of Systems: reviewed in the chart, unable to obtain, minimize risk of transmission Past History Past Medical History: diabetes, ESRD, hypertension Past Surgical History: Other (Dialysis access) Social history: . denies: smoking, alcohol abuse Family history: diabetes, hypertension Medications and Allergies Allergies Allergy/AdvReac Type Severity Reaction Status Date / Time celecoxib Allergy Unknown Verified 05/28/14 23:14 Sulfa (Sulfonamide AdvReac Nausea Verified 03/30/14 16:40 Antibiotics) Home Medications Medication Instructions Recorded Confirmed Last Taken Type Albuterol Mdi (or & Nicu Only) 2 puff IH QID PRN #1 inhalation 03/30/14 12/09/20 12/05/20 20:00 Rx [ProAir HFA Inhaler] Aspirin [Aspirin BABY CHEW TAB] 81 mg PO DAILY 03/30/14 02/01/21 01/30/21 08:40 History Febuxostat [Uloric] 80 mg PO DAILY 03/30/14 12/09/20 12/05/20 20:00 History Levothyroxine [Synthroid] 88 mcg PO DAILY 03/30/14 02/01/21 01/30/21 06:30 History Metoprolol [Lopressor TAB] 50 mg PO DAILY 03/30/14 12/09/20 12/05/20 20:00 History Montelukast [Singulair] 10 mg PO DAILY 03/30/14 12/09/20 12/05/20 20:00 History Quetiapine Fumarate [QUEtiapine 300 mg PO DAILY 03/30/14 02/01/21 01/30/21 21:00 History Fumarate] Rosuvastatin (Nf) [Crestor] 20 mg PO DAILY 03/30/14 02/01/21 12/05/20 20:00 History clonazePAM 2 mg PO HS 03/30/14 02/01/21 01/31/21 23:00 History sitaGLIPtin [Januvia] 50 mg PO DAILY 03/30/14 02/01/21 01/30/21 08:30 History Insulin Detemir (Nf) [Levemir 20 unit SQ BID 05/28/14 12/09/20 12/05/20 20:00 History Flextouch] Insulin Lispro [HumaLOG] 5 unit SQ DAILY 05/28/14 02/01/21 01/30/21 20:45 History Promethazine [Phenergan] 25 mg PO Q6H PRN 05/28/14 12/09/20 12/05/20 20:00 History Ciprofloxacin HCl [Cipro] 500 mg PO BID #10 tablet 05/29/14 12/09/20 12/05/20 20 :00 Rx Furosemide [Lasix] 40 mg PO DAILY 05/29/14 12/09/20 12/05/20 20:00 History HYDROcodone/APAP 10-325 [[place] 1 each PO Q8HR PRN #20 tablet 05/29/14 02/01/21 01/30/21 20:00 Rx 10-325 mg TAB] Ondansetron [Zofran Odt] 4 mg PO Q8HR PRN #20 tab.rapdis 05/29/14 02/01/21 01/29/21 20:00 Rx Tramadol HCl/Acetaminophen 1 each PO Q6HR PRN 05/29/14 12/09/20 12/05/20 20:00 History [Tramadol-Acetaminophn 37.5-325] Active Meds: Active Medications Acetaminophen (Acetaminophen 325 Mg Tab) 650 mg PO Q4H PRN PRN Reason: Pain MILD(1-3)/Fever >100.5/LOBATO Albuterol (Albuterol 2.5 Mg/3 Ml Nebu) 2.5 mg IH Q4HRT PRN PRN Reason: Shortness Of Breath Ascorbic Acid (Ascorbic Acid 500 Mg Tab) 500 mg PO BID [facility] Last Admin: 02/01/21 10:25 Dose: 500 mg Documented by: Aspirin (Aspirin 81 Mg Tab Chew) 81 mg PO DAILY [facility] Last Admin: 02/01/21 10:24 Dose: 81 mg Documented by: Atorvastatin Calcium (Atorvastatin 40 Mg Tab) 40 mg PO QHS [facility] Cholecalciferol (Cholecalciferol (Vit D3) 400 Unit Tab) 1,000 unit PO QDAY [facility] Last Admin: 02/01/21 10:24 Dose: 1,000 unit Documented by: Clonazepam (Clonazepam 2 Mg Tab) 2 mg PO HS [facility] Last Admin: 01/31/21 23:11 Dose: 2 mg Documented by: Dextrose (Dextrose 50% In Water (25gm) 50 Ml Syringe) 50 ml IV Q30MIN PRN; Protocol PRN Reason: Hypoglycemia Furosemide (Furosemide 40 Mg Tab) 40 mg PO DAILY [facility] Last Admin: 02/01/21 10:25 Dose: 40 mg Documented by: Heparin Sodium (Porcine) (Heparin 5,000 Unit/1 Ml Vial) 5,000 unit SUB-Q Q12HR [facility] Last Admin: 02/01/21 10:20 Dose: 5,000 unit Documented by: Heparin Sodium (Porcine) (Heparin 10,000 Units/10 Ml Vial) 3,000 unit IV [facility]LU PRN PRN Reason: hemodialysis Hydromorphone HCl (Hydromorphone 1 Mg/1 Ml Inj) 0.5 mg IV Q23H PRN PRN Reason: Pain , Severe (7-10) Ceftriaxone Sodium (Rocephin/Ns 2 Gm/100 Ml) 2 gm in 100 mls @ 200 mls/hr IV Q24H [facility]; Protocol Stop: 02/04/21 21:29 Last Admin: 01/31/21 23:12 Dose: Not Given Documented by: Azithromycin (Zithromax/Ns) 500 mg in 250 mls @ 250 mls/hr IV Q24H [facility]; Protocol Stop: 02/04/21 20:59 Sodium Chloride (Nacl 0.9%) 100 mls @ 999 mls/hr IV MARYLU PRN PRN Reason: Hypotension Insulin Human Lispro (Insulin Lispro 100 Unit/Ml) 0 unit SUB-Q Q6HR [facility]; Protocol Last Admin: 02/01/21 13:26 Dose: 3 unit Documented by: Levothyroxine Sodium (Levothyroxine 88 Mcg Tab) 88 mcg PO DAILY [facility] Last Admin: 02/01/21 10:24 Dose: 88 mcg Documented by: Methylprednisolone Sodium Succinate (Methylprednisolone Sod Succinate 40 Mg/1 Ml Inj) 40 mg IV Q8HR [facility] Last Admin: 02/01/21 13:26 Dose: 40 mg Documented by: Metoprolol Tartrate (Metoprolol Tartrate 50 Mg Tab) 50 mg PO DAILY [facility] Last Admin: 02/01/21 10:25 Dose: 50 mg Documented by: Miscellaneous Medication (Febuxostat [Uloric]) 80 mg PO DAILY [facility] Montelukast Sodium (Montelukast 10 Mg Tab) 10 mg PO DAILY [facility] Last Admin: 02/01/21 10:25 Dose: 10 mg Documented by: Ondansetron HCl (Ondansetron 4 Mg/2 Ml Inj) 4 mg IV Q8H PRN PRN Reason: Nausea And Vomiting Oxycodone/Acetaminophen (Oxycodone /Acetaminophen 5-325mg Tab) 1 tab PO Q16H PRN PRN Reason: Pain, Moderate (4-6) Promethazine HCl (Promethazine 25 Mg Tab) 25 mg PO Q6H PRN PRN Reason: Nausea Quetiapine Fumarate (Quetiapine 100 Mg Tab) 300 mg PO DAILY [facility] Last Admin: 02/01/21 10:24 Dose: 300 mg Documented by: Sodium Chloride (Sodium Chloride 0.9% 10 Ml Flush Syringe) 10 ml IV BID [facility] Last Admin: 02/01/21 10:25 Dose: 10 ml Documented by: Sodium Chloride (Sodium Chloride 0.9% 10 Ml Flush Syringe) 10 ml IV PRN PRN PRN Reason: LINE FLUSH Zinc Sulfate (Zinc Sulfate 220 Mg Cap) 220 mg PO BID [facility] Last Admin: 02/01/21 10:25 Dose: 220 mg Documented by: Physical Examination - Physical Exam Narrative exam: Physical Exam (reviewed in chart to minimize risk of transmission) Constitutional: deferred Head, Ears, Nose: deferred Eyes: deferred Neck: deferred Oral: deferred Cardiovascular: deferred Respiratory: deferred GI: deferred Musculoskeletal: deferred Skin: deferred Hem/Lymphatic: deferred Psych: deferred Neurological: deferred - Constitutional Vitals: Vital Signs Temp Pulse Resp BP Pulse Ox 98.9 F 79 18 140/45 99 02/01/21 10:36 02/01/21 10:25 02/01/21 10:22 02/01/21 10:25 02/01/21 10:23 Temperature -Last 24 Hours Temperature 98.9 F Temperature 98.4 F Temperature 99.1 F Temperature 99.1 F Results - Labs CBC & Chem 7: 02/01/21 Unknown 02/01/21 Unknown Labs: Abnormal lab results 01/31/21 01/31/21 01/31/21 Range/Units 18:34 18:34 19:28 RBC (3.65-5.03) M/mm3 MCV 98 H (79-97) fl RDW 16.1 H (13.2-15.2) % [place] % (Auto) 13.7 H (0.0-7.3) % Lymph # (Auto) (1.2-5.4) K/mm3 [place] # (Auto) 1.4 H (0.0-0.8) K/mm3 Seg Neutrophils % (40.0-70.0) % D-Dimer 594.70 H (0-234) ng/mlDDU Potassium 5.6 H (3.6-5.0) mmol/L Creatinine 3.3 H (0.6-1.2) mg/dL Glucose 105 H (65-100) mg/dL POC Glucose (70-105) mg/dL Lactic Acid (0.7-2.0) mmol/L Ferritin (10.0-200.0) ng/mL AST 68 H (5-40) units/L Lactate Dehydrogenase (91-180) units/L C-Reactive Protein (0.00-1.30) mg/dL 01/31/21 01/31/21 01/31/21 Range/Units 19:28 19:28 22:29 RBC (3.65-5.03) M/mm3 MCV (79-97) fl RDW (13.2-15.2) % [place] % (Auto) (0.0-7.3) % Lymph # (Auto) (1.2-5.4) K/mm3 [place] # (Auto) (0.0-0.8) K/mm3 Seg Neutrophils % (40.0-70.0) % D-Dimer (0-234) ng/mlDDU Potassium (3.6-5.0) mmol/L Creatinine (0.6-1.2) mg/dL Glucose (65-100) mg/dL POC Glucose (70-105) mg/dL Lactic Acid 2.10 H* (0.7-2.0) mmol/L Ferritin 959.7 H (10.0-200.0) ng/mL AST (5-40) units/L Lactate Dehydrogenase 321 H (91-180) units/L C-Reactive Protein 2.70 H (0.00-1.30) mg/dL 01/31/21 02/01/21 02/01/21 Range/Units 22:59 05:51 10:58 RBC (3.65-5.03) M/mm3 MCV (79-97) fl RDW (13.2-15.2) % [place] % (Auto) (0.0-7.3) % Lymph # (Auto) (1.2-5.4) K/mm3 [place] # (Auto) (0.0-0.8) K/mm3 Seg Neutrophils % (40.0-70.0) % D-Dimer (0-234) ng/mlDDU Potassium (3.6-5.0) mmol/L Creatinine (0.6-1.2) mg/dL Glucose (65-100) mg/dL POC Glucose 176 H 178 H 189 H (70-105) mg/dL Lactic Acid (0.7-2.0) mmol/L Ferritin (10.0-200.0) ng/mL AST (5-40) units/L Lactate Dehydrogenase (91-180) units/L C-Reactive Protein (0.00-1.30) mg/dL 02/01/21 02/01/21 Range/Units Unknown Unknown RBC 3.57 L (3.65-5.03) M/mm3 MCV (79-97) fl RDW 15.6 H (13.2-15.2) % [place] % (Auto) (0.0-7.3) % Lymph # (Auto) 0.9 L (1.2-5.4) K/mm3 [place] # (Auto) (0.0-0.8) K/mm3 Seg Neutrophils % 83.9 H (40.0-70.0) % D-Dimer (0-234) ng/mlDDU Potassium (3.6-5.0) mmol/L Creatinine 3.9 H (0.6-1.2) mg/dL Glucose 195 H (65-100) mg/dL POC Glucose (70-105) mg/dL Lactic Acid (0.7-2.0) mmol/L Ferritin (10.0-200.0) ng/mL AST (5-40) units/L Lactate Dehydrogenase (91-180) units/L C-Reactive Protein (0.00-1.30) mg/dL Assessment and Plan Cultures: SARS CoV2 PCR: Pending 01/23/2021 blood culture: No growth A/P: 80-year-old female with ESRD on HD, diabetes, hypertension, coronary artery disease, vascular dementia, prior CVA with: #Bilateral pneumonia versus pulmonary edema: Follow-up COVID-19 PCR. #Acute hypoxic respiratory failure: On oxygen by nasal cannula #ESRD on HD: Renally adjust antibiotics. #Diabetes mellitus #Hypertension Recs: -Given ESRD, not a candidate for remdesivir -Follow-up COVID-19 PCR, if positive, treat with steroids for 10 days -IV/PO Dexamethasone x 10 days -Procalcitonin not helpful in ESRD, complete short course of antibiotics Caden Rice MD, FACP [facility] O: [phone] F: [phone]
[2021-02-01] MEDS: AZITHROMYCIN/NS 500 MG/250 ML 500 MG/250 ML BAG IV SCH (22:28)
[2021-02-02] MEDS: cefTRIAXone/NS 2 GM/100 ML 2 GM/100 ML BAG IV SCH ×2 (00:29→22:05)
[2021-02-02] MEDS: INSULIN LISPRO 100 UNIT/ML SUB-Q SCH ×5 (00:29→18:49)
[2021-02-02] MEDS: methylPREDNISolone Sod Succinate 40 MG/1 ML INJ IV SCH ×3 (06:24→22:10)
[2021-02-02] MEDS ORDERED: SODIUM CHLORIDE 0.9% 100 ML IV PRN (08:08)
--- NOTE | 2021-02-02 10:46 | Progress Note ---
Assessment and Plan 1. ESRD: Patient is on maintenance hemodialysis three times a week, TTS schedule. Last outpatient hemodialysis 01/31. Hemodialysis: 02/01(UF only), 02/02. 2. FEN: Volume overload, improved with HD. Hyperkalemia, improved, monitor. Monitor. 3. Acute hypoxic resp failure, POA: Likely 2/2 volume overload. Covid-19 test negative. Supplemental O2. Volume control thru HD. Monitor. 4. Anemia, POA: Epogen with HD as needed. 5. DM type 2. 6. Hypertension: Monitor BP. Adjust meds as needed. Subjective: Patient was seen and examined at the bedside. Examination: General appearance: well-developed, obese, appears stated age, not in distress HEENT: ATNC Neck: trachea midline Respiratory: ctab Heart: regular, S1S2, no murmur Abdomen: soft, obese, normoactive bowel sounds, not tender Integumentary: no obvious rash Neurologic: alert, confused, able to move extremities Ext: no edema Hemodialysis access: L arm AVF Subjective Date of service: 02/02/21 Objective - Vital Signs Vital signs: Vital Signs - 12hr 02/01/21 02/02/21 02/02/21 22:54 00:34 04:44 Temperature 98.0 F 98.4 F Pulse Rate 71 73 69 Respiratory 18 18 18 Rate Blood Pressure 90/24 119/37 Blood Pressure 100/30 [Right] O2 Sat by Pulse 100 97 97 Oximetry O2 Sat by Pulse Oximetry [ Anterior Bilateral] 02/02/21 02/02/21 02/02/21 06:01 09:30 09:45 Temperature 98.2 F 98.2 F Pulse Rate 78 71 65 Respiratory 18 18 Rate Blood Pressure 115/29 127/57 122/59 Blood Pressure [Right] O2 Sat by Pulse 97 Oximetry O2 Sat by Pulse 97 Oximetry [ Anterior Bilateral] - Lab 02/01/21 Unknown 02/03/21 04:00 Most recent lab results Calcium 9.1 mg/dL (8.4-10.2) 02/01/21 Unknown Medications & Allergies - Medications Allergies/Adverse Reactions: Allergies celecoxib Allergy (Verified 05/28/14 23:14) Unknown Sulfa (Sulfonamide Antibiotics) Adverse Reaction (Verified 03/30/14 16:40) Nausea Home Medications: Home Medications Medication Instructions Recorded Confirmed Last Taken Type Albuterol Mdi (or & Nicu Only) 2 puff IH QID PRN #1 inhalation 03/30/14 12/09/20 12/05/20 20:00 Rx [ProAir HFA Inhaler] Aspirin [Aspirin BABY CHEW TAB] 81 mg PO DAILY 03/30/14 02/01/21 01/30/21 08:40 History Febuxostat [Uloric] 80 mg PO DAILY 03/30/14 12/09/20 12/05/20 20:00 History Levothyroxine [Synthroid] 88 mcg PO DAILY 03/30/14 02/01/21 01/30/21 06:30 History Metoprolol [Lopressor TAB] 50 mg PO DAILY 03/30/14 02/02/21 02/01/21 10:00 History Montelukast [Singulair] 10 mg PO DAILY 03/30/14 02/02/21 02/01/21 10:00 History Quetiapine Fumarate [QUEtiapine 300 mg PO DAILY 03/30/14 02/01/21 01/30/21 21:00 History Fumarate] Rosuvastatin (Nf) [Crestor] 20 mg PO DAILY 03/30/14 02/01/21 12/05/20 20:00 History clonazePAM 2 mg PO HS 03/30/14 02/01/21 01/31/21 23:00 History sitaGLIPtin [Januvia] 50 mg PO DAILY 03/30/14 02/01/21 01/30/21 08:30 History Insulin Detemir (Nf) [Levemir 20 unit SQ BID 05/28/14 12/09/20 12/05/20 20:00 History Flextouch] Insulin Lispro [HumaLOG] 5 unit SQ DAILY 05/28/14 02/01/21 01/30/21 20:45 History Promethazine [Phenergan] 25 mg PO Q6H PRN 05/28/14 12/09/20 12/05/20 20:00 History Ciprofloxacin HCl [Cipro] 500 mg PO BID #10 tablet 05/29/14 12/09/20 12/05/20 20:00 Rx Furosemide [Lasix] 40 mg PO DAILY 05/29/14 02/02/21 02/01/21 10:00 History HYDROcodone/APAP 10-325 [[place] 1 each PO Q8HR PRN #20 tablet 05/29/14 02/01/21 01/30/21 20:00 Rx 10-325 mg TAB] Ondansetron [Zofran Odt] 4 mg PO Q8HR PRN #20 tab.rapdis 05/29/14 02/01/21 01/29/21 20:00 Rx Tramadol HCl/Acetaminophen 1 each PO Q6HR PRN 05/29/14 02/02/21 02/01/21 10:00 History [Tramadol-Acetaminophn 37.5-325] Active Medications: Generic Name Dose Route Start Last Admin Trade Name Freq PRN Reason Stop Dose Admin Acetaminophen 650 mg 01/31/21 20:20 Acetaminophen 325 Mg Tab PO Q4H PRN Pain MILD(1-3)/Fever >100.5/LOBATO Albuterol 2.5 mg 01/31/21 20:20 Albuterol 2.5 Mg/3 Ml Nebu IH Q4HRT PRN Shortness Of Breath Ascorbic Acid 500 mg 01/31/21 22:00 02/01/21 22:26 Ascorbic Acid 500 Mg Tab PO 500 mg BID JEAN-PAUL Administration Aspirin 81 mg 02/01/21 10:00 02/01/21 10:24 Aspirin 81 Mg Tab Chew PO 81 mg DAILY JEAN-PAUL Administration Atorvastatin Calcium 40 mg 02/01/21 22:00 02/01/21 22:26 Atorvastatin 40 Mg Tab PO 40 mg QHS JEAN-PAUL Administration Cholecalciferol 1,000 unit 02/01/21 10:00 02/01/21 10:24 Cholecalciferol (Vit D3) 400 Unit Tab PO 1,000 unit QDAY JEAN-PAUL Administration Clonazepam 2 mg 01/31/21 22:00 02/01/21 22:31 Clonazepam 2 Mg Tab PO 2 mg HS JEAN-PAUL Administration Dextrose 50 ml 01/31/21 20:30 Dextrose 50% In Water (25gm) 50 Ml Syringe IV Q30MIN PRN Hypoglycemia Protocol Furosemide 40 mg 02/01/21 10:00 02/01/21 10:25 Furosemide 40 Mg Tab PO 40 mg DAILY JEAN-PAUL Administration Heparin Sodium (Porcine) 5,000 unit 01/31/21 22:00 02/01/21 22:26 Heparin 5,000 Unit/1 Ml Vial SUB-Q 5,000 unit Q12HR JEAN-PAUL Administration Heparin Sodium (Porcine) 3,000 unit 02/01/21 10:53 Heparin 10,000 Units/10 Ml Vial IV MARYLU PRN hemodialysis Hydromorphone HCl 0.5 mg 01/31/21 20:20 Hydromorphone 1 Mg/1 Ml Inj IV Q23H PRN Pain , Severe (7-10) Ceftriaxone Sodium 2 gm in 100 mls @ 200 mls/hr 01/31/21 21:00 02/02/21 00:29 Rocephin/Ns 2 Gm/100 Ml IV 02/04/21 21:29 200 mls/hr Q24H JEAN-PAUL Administration Protocol Azithromycin 500 mg in 250 mls @ 250 mls/hr 02/01/21 20:00 02/01/21 22:28 Zithromax/Ns IV 02/04/21 20:59 250 mls/hr Q24H JEAN-PAUL Administration Protocol Sodium Chloride 100 mls @ 999 mls/hr 02/02/21 08:08 Nacl 0.9% IV MARYLU PRN Hypotension Insulin Human Lispro 0 unit 02/01/21 00:00 02/02/21 06:24 Insulin Lispro 100 Unit/Ml SUB-Q 3 unit Q6HR JEAN-PAUL Administration Protocol Levothyroxine Sodium 88 mcg 02/01/21 10:00 02/01/21 10:24 Levothyroxine 88 Mcg Tab PO 88 mcg DAILY JEAN-PAUL Administration Methylprednisolone Sodium Succinate 40 mg 01/31/21 22:00 02/02/21 06:24 Methylprednisolone Sod Succinate 40 Mg/1 Ml Inj IV 40 mg Q8HR JEAN-PAUL Administration Metoprolol Tartrate 50 mg 02/01/21 10:00 02/01/21 10:25 Metoprolol Tartrate 50 Mg Tab PO 50 mg DAILY JEAN-PAUL Administration Miscellaneous Medication 80 mg 02/01/21 10:00 Febuxostat [Uloric] PO DAILY [facility] Montelukast Sodium 10 mg 02/01/21 10:00 02/01/21 10:25 Montelukast 10 Mg Tab PO 10 mg DAILY JEAN-PAUL Administration Ondansetron HCl 4 mg 01/31/21 20:20 Ondansetron 4 Mg/2 Ml Inj IV Q8H PRN Nausea And Vomiting Oxycodone/Acetaminophen 1 tab 01/31/21 20:20 Oxycodone /Acetaminophen 5-325mg Tab PO Q16H PRN Pain, Moderate (4-6) Promethazine HCl 25 mg 01/31/21 20:24 Promethazine 25 Mg Tab PO Q6H PRN Nausea Quetiapine Fumarate 300 mg 02/01/21 10:00 02/01/21 10:24 Quetiapine 100 Mg Tab PO 300 mg DAILY JEAN-PAUL Administration Sodium Chloride 10 ml 01/31/21 22:00 02/02/21 00:30 Sodium Chloride 0.9% 10 Ml Flush Syringe IV 10 ml BID JEAN-PAUL Administration Sodium Chloride 10 ml 01/31/21 20:20 Sodium Chloride 0.9% 10 Ml Flush Syringe IV PRN PRN LINE FLUSH Zinc Sulfate 220 mg 01/31/21 22:00 02/01/21 22:30 Zinc Sulfate 220 Mg Cap PO 220 mg BID JEAN-PAUL Administration
[2021-02-02] MEDS: FUROSEMIDE 40 MG TAB PO SCH (11:59)
[2021-02-02] MEDS: HEPARIN 5,000 UNIT/1 ML VIAL SUB-Q SCH ×2 (11:59→22:08)
[2021-02-02] MEDS: ASPIRIN 81 MG TAB CHEW PO SCH (11:59)
[2021-02-02] MEDS: METOPROLOL TARTRATE 50 MG TAB PO SCH (11:59)
[2021-02-02] MEDS: CHOLECALCIFEROL (VIT D3) 400 UNIT TAB PO SCH (12:00)
[2021-02-02] MEDS: QUEtiapine 100 MG TAB PO SCH (12:00)
[2021-02-02] MEDS: ZINC SULFATE 220 MG CAP PO SCH ×2 (12:00→22:11)
[2021-02-02] MEDS: ASCORBIC ACID 500 MG TAB PO SCH ×2 (12:00→22:11)
[2021-02-02] MEDS: LEVOTHYROXINE 88 MCG TAB PO SCH (12:00)
[2021-02-02] MEDS: MONTELUKAST 10 MG TAB PO SCH (12:00)
--- NOTE | 2021-02-02 13:57 | Progress Note ---
Assessment and Plan -- Acute hypoxemic respiratory failure likely due to volume overload, HD per renal, supplemental O2 Noninvasive positive pressure ventilation as clinically indicated patient is unable to maintain pulse oximetry on supplemental oxygen via nasal cannula. -- Suspected 2019 novel coronavirus infection Pending COVID test, cont covid protocol -- Pneumonia Pneumonia protocol: Chest x-ray, IV antibiotic therapy, supplemental oxygen, pulse oximetry, nebulizer therapy -- End stage renal disease Nephrology team consulted in ED, strict I's/O, monitor urine output every shift, -- Hypertension Monitor blood pressure every shift, continue medical management. --Diabetes type 2 Consistent carbohydrate diet, Accu-Chek, hypoglycemia protocol, insulin protocol. -- Hyperlipidemia Statin therapy, low-cholesterol diet, supportive care. -- Hypothyroidism Continue Synthroid therapy, supportive care, continue medical management -- DVT prophylaxis SCD bilateral lower extremities while in bed, prophylactic anticoagulation --Full code status Daily clinical course: 02/01/21: Pt on 4L o2, s/p HD today, cont home meds, plan for HD again tomorrow 02/02/21: s/p HD today. off O2, patient appears very shaky per RN, cont to monitor, possible d/c tomorrow am Subjective Date of service: 02/02/21 Interval history: Patient seen and examined. Medical records and medication list reviewed. No acute event overnight noted by the RN. Patient off nasal cannula O2. Patient is tolerating diet. s/p hemodialysis today Discussed plan of care at bedside with patient. Objective - Exam Narrative Exam: GENERAL: well-developed and well-nourished morbidly obese lying on bed appeared to be in mild discomfort. HEENT: Normocephalic. Atraumatic. No conjunctival congestion or icterus. Patient has moist mucous membranes. NECK: Supple. Trachea midline. CHEST/LUNGS: clear BS auscultated bilaterally, HEART/CARDIOVASCULAR: Regular in rate and rhythm. S1 and S2 positive. ABDOMEN: Abdomen is soft, nontender. Patient has normal bowel sounds. SKIN: There is no rash. Warm and dry. NEURO: No focal motor deficit. Follows command. MUSCULOSKELETAL: No joint effusion or tenderness. EXTRIMITY: No edema, no cyanosis or clubbing. PSYCH: Cooperative. - Constitutional Vitals: Vital Signs - 12hr 02/02/21 02/02/21 02/02/21 04:44 06:01 09:30 Temperature 98.4 F 98.2 F 98.2 F Pulse Rate 69 78 71 Respiratory 18 18 18 Rate Blood Pressure 119/37 115/29 127/57 O2 Sat by Pulse 97 97 Oximetry O2 Sat by Pulse 97 Oximetry [ Anterior Bilateral] 02/02/21 02/02/21 02/02/21 09:45 10:00 10:15 Temperature Pulse Rate 65 68 65 Respiratory Rate Blood Pressure 122/59 122/53 127/59 O2 Sat by Pulse Oximetry O2 Sat by Pulse Oximetry [ Anterior Bilateral] 02/02/21 02/02/21 02/02/21 10:30 10:45 11:00 Temperature Pulse Rate 65 65 68 Respiratory Rate Blood Pressure 122/54 118/56 126/57 O2 Sat by Pulse Oximetry O2 Sat by Pulse Oximetry [ Anterior Bilateral] 02/02/21 02/02/21 02/02/21 11:15 11:30 11:45 Temperature Pulse Rate 68 68 63 Respiratory Rate Blood Pressure 116/57 116/58 138/58 O2 Sat by Pulse Oximetry O2 Sat by Pulse Oximetry [ Anterior Bilateral] 02/02/21 02/02/21 02/02/21 12:00 12:15 12:30 Temperature Pulse Rate 69 70 80 Respiratory Rate Blood Pressure 130/80 141/61 132/58 O2 Sat by Pulse Oximetry O2 Sat by Pulse Oximetry [ Anterior Bilateral] 02/02/21 13:00 Temperature 98.0 F Pulse Rate 79 Respiratory 18 Rate Blood Pressure 145/61 O2 Sat by Pulse Oximetry O2 Sat by Pulse 99 Oximetry [ Anterior Bilateral] - Labs CBC & Chem 7: 02/01/21 Unknown 02/03/21 04:00 Labs: Abnormal lab results 02/01/21 02/01/21 02/02/21 Range/Units 15:28 22:53 05:59 POC Glucose 107 H 213 H 171 H (70-105) mg/dL
[2021-02-02] MEDS: AZITHROMYCIN/NS 500 MG/250 ML 500 MG/250 ML BAG IV SCH (21:05)
[2021-02-03] MEDS: INSULIN LISPRO 100 UNIT/ML SUB-Q SCH ×3 (00:11→13:05)
[2021-02-03 05:27] LABS: Calcium 9.6 mg/dL (8.4-10.2)
[2021-02-03] MEDS: methylPREDNISolone Sod Succinate 40 MG/1 ML INJ IV SCH ×2 (05:37→13:06)
--- NOTE | 2021-02-03 09:19 | Progress Note ---
Assessment and Plan 1. ESRD: Patient is on maintenance hemodialysis three times a week, TTS schedule. Last outpatient hemodialysis 01/31. Hemodialysis: 02/01(UF only), 02/02. 2. FEN: Volume overload, improved with HD. Hyperkalemia, improved, monitor. Monitor. 3. Acute hypoxic resp failure, POA: Likely 2/2 volume overload. Covid-19 test negative. Volume control thru HD. Monitor. 4. Anemia, POA: Epogen with HD as needed. 5. DM type 2. 6. Hypertension: Monitor BP. Adjust meds as needed. Subjective: Patient was seen and examined at the bedside. Examination: General appearance: well-developed, obese, appears stated age, not in distress HEENT: ATNC Neck: trachea midline Respiratory: ctab Heart: regular, S1S2, no murmur Abdomen: soft, obese, normoactive bowel sounds, not tender Integumentary: no obvious rash Neurologic: alert, confused, able to move extremities Ext: no edema Hemodialysis access: L arm AVF Subjective Date of service: 02/03/21 Objective - Vital Signs Vital signs: Vital Signs - 12hr 02/02/21 02/03/21 22:32 05:10 Temperature 98.5 F 98.6 F Pulse Rate 79 84 Respiratory 18 18 Rate Blood Pressure 154/58 136/42 O2 Sat by Pulse 94 94 Oximetry - Lab 02/01/21 Unknown 02/03/21 04:00 Most recent lab results Calcium 9.6 mg/dL (8.4-10.2) 02/03/21 04:00 Medications & Allergies - Medications Allergies/Adverse Reactions: Allergies celecoxib Allergy (Verified 05/28/14 23:14) Unknown Sulfa (Sulfonamide Antibiotics) Adverse Reaction (Verified 03/30/14 16:40) Nausea Home Medications: Home Medications Medication Instructions Recorded Confirmed Last Taken Type Albuterol Mdi (or & Nicu Only) 2 puff IH QID PRN #1 inhalation 03/30/14 12/09/20 12/05/20 20:00 Rx [ProAir HFA Inhaler] Aspirin [Aspirin BABY CHEW TAB] 81 mg PO DAILY 03/30/14 02/01/21 01/30/21 08:40 History Febuxostat [Uloric] 80 mg PO DAILY 03/30/14 12/09/20 12/05/20 20:00 History Levothyroxine [Synthroid] 88 mcg PO DAILY 03/30/14 02/01/21 01/30/21 06:30 History Metoprolol [Lopressor TAB] 50 mg PO DAILY 03/30/14 02/02/21 02/01/21 10:00 History Montelukast [Singulair] 10 mg PO DAILY 03/30/14 02/02/21 02/01/21 10:00 History Quetiapine Fumarate [QUEtiapine 300 mg PO DAILY 03/30/14 02/01/21 01/30/21 21:00 History Fumarate] Rosuvastatin (Nf) [Crestor] 20 mg PO DAILY 03/30/14 02/01/21 12/05/20 20:00 H istory clonazePAM 2 mg PO HS 03/30/14 02/01/21 01/31/21 23:00 History sitaGLIPtin [Januvia] 50 mg PO DAILY 03/30/14 02/01/21 01/30/21 08:30 History Promethazine [Phenergan] 25 mg PO Q6H PRN 05/28/14 12/09/20 12/05/20 20:00 History Furosemide [Lasix] 40 mg PO DAILY 05/29/14 02/02/21 02/01/21 10:00 History levoFLOXacin [Levaquin] 250 mg PO QDAY #3 tablet 02/03/21 Unknown Rx Active Medications: Generic Name Dose Route Start Last Admin Trade Name Freq PRN Reason Stop Dose Admin Acetaminophen 650 mg 01/31/21 20:20 Acetaminophen 325 Mg Tab PO Q4H PRN Pain MILD(1-3)/Fever >100.5/LOBATO Albuterol 2.5 mg 01/31/21 20:20 Albuterol 2.5 Mg/3 Ml Nebu IH Q4HRT PRN Shortness Of Breath Ascorbic Acid 500 mg 01/31/21 22:00 02/02/21 22:11 Ascorbic Acid 500 Mg Tab PO 500 mg BID JEAN-PAUL Administration Aspirin 81 mg 02/01/21 10:00 02/02/21 11:59 Aspirin 81 Mg Tab Chew PO Not Given DAILY JEAN-PAUL Atorvastatin Calcium 40 mg 02/01/21 22:00 02/02/21 22:09 Atorvastatin 40 Mg Tab PO 40 mg QHS JEAN-PAUL Administration Cholecalciferol 1,000 unit 02/01/21 10:00 02/02/21 12:00 Cholecalciferol (Vit D3) 400 Unit Tab PO Not Given QDAY JEAN-PAUL Clonazepam 2 mg 01/31/21 22:00 02/02/21 22:08 Clonazepam 2 Mg Tab PO 2 mg HS JEAN-PAUL Administration Dextrose 50 ml 01/31/21 20:30 Dextrose 50% In Water (25gm) 50 Ml Syringe IV Q30MIN PRN Hypoglycemia Protocol Furosemide 40 mg 02/01/21 10:00 02/02/21 11:59 Furosemide 40 Mg Tab PO Not Given DAILY JEAN-PAUL Heparin Sodium (Porcine) 5,000 unit 01/31/21 22:00 02/02/21 22:08 Heparin 5,000 Unit/1 Ml Vial SUB-Q 5,000 unit Q12HR JEAN-PAUL Administration Heparin Sodium (Porcine) 3,000 unit 02/01/21 10:53 Heparin 10,000 Units/10 Ml Vial IV MARYLU PRN hemodialysis Hydromorphone HCl 0.5 mg 01/31/21 20:20 Hydromorphone 1 Mg/1 Ml Inj IV Q23H PRN Pain , Severe (7-10) Ceftriaxone Sodium 2 gm in 100 mls @ 200 mls/hr 01/31/21 21:00 02/03/21 02:14 Rocephin/Ns 2 Gm/100 Ml IV 02/04/21 21:29 Infused Q24H JEAN-PAUL Infusion Protocol Azithromycin 500 mg in 250 mls @ 250 mls/hr 02/01/21 20:00 02/02/21 22:13 Zithromax/Ns IV 02/04/21 20:59 Infused Q24H JEAN-PAUL Infusion Protocol Sodium Chloride 100 mls @ 999 mls/hr 02/02/21 08:08 Nacl 0.9% IV MARYLU PRN Hypotension Insulin Human Lispro 0 unit 02/01/21 00:00 02/03/21 05:34 Insulin Lispro 100 Unit/Ml SUB-Q 3 unit Q6HR JEAN-PAUL Administration Protocol Levothyroxine Sodium 88 mcg 02/01/21 10:00 02/02/21 12:00 Levothyroxine 88 Mcg Tab PO Not Given DAILY JEAN-PAUL Methylprednisolone Sodium Succinate 40 mg 01/31/21 22:00 02/03/21 05:37 Methylprednisolone Sod Succinate 40 Mg/1 Ml Inj IV 40 mg Q8HR JEAN-PAUL Administration Metoprolol Tartrate 50 mg 02/01/21 10:00 02/02/21 11:59 Metoprolol Tartrate 50 Mg Tab PO Not Given DAILY [facility] Miscellaneous Medication 80 mg 02/01/21 10:00 Febuxostat [Uloric] PO DAILY JEAN-PAUL Montelukast Sodium 10 mg 02/01/21 10:00 02/02/21 12:00 Montelukast 10 Mg Tab PO Not Given DAILY JEAN-PAUL Ondansetron HCl 4 mg 01/31/21 20:20 Ondansetron 4 Mg/2 Ml Inj IV Q8H PRN Nausea And Vomiting Oxycodone/Acetaminophen 1 tab 01/31/21 20:20 Oxycodone /Acetaminophen 5-325mg Tab PO Q16H PRN Pain, Moderate (4-6) Promethazine HCl 25 mg 01/31/21 20:24 Promethazine 25 Mg Tab PO Q6H PRN Nausea Quetiapine Fumarate 300 mg 02/01/21 10:00 02/02/21 12:00 Quetiapine 100 Mg Tab PO Not Given DAILY JEAN-PAUL Sodium Chloride 10 ml 01/31/21 22:00 02/02/21 22:10 Sodium Chloride 0.9% 10 Ml Flush Syringe IV 10 ml BID JEAN-PAUL Administration Sodium Chloride 10 ml 01/31/21 20:20 Sodium Chloride 0.9% 10 Ml Flush Syringe IV PRN PRN LINE FLUSH Zinc Sulfate 220 mg 01/31/21 22:00 02/02/21 22:11 Zinc Sulfate 220 Mg Cap PO 220 mg BID JEAN-PAUL Administration
[2021-02-03] MEDS: ASPIRIN 81 MG TAB CHEW PO SCH (10:28)
[2021-02-03] MEDS: LEVOTHYROXINE 88 MCG TAB PO SCH (10:28)
[2021-02-03] MEDS: MONTELUKAST 10 MG TAB PO SCH (10:29)
[2021-02-03] MEDS: HEPARIN 5,000 UNIT/1 ML VIAL SUB-Q SCH (10:29)
[2021-02-03] MEDS: ZINC SULFATE 220 MG CAP PO SCH (10:30)
[2021-02-03] MEDS: QUEtiapine 100 MG TAB PO SCH (10:30)
[2021-02-03] MEDS: ASCORBIC ACID 500 MG TAB PO SCH (10:30)
[2021-02-03] MEDS: FUROSEMIDE 40 MG TAB PO SCH (10:30)
[2021-02-03] MEDS: METOPROLOL TARTRATE 50 MG TAB PO SCH (10:39)
[2021-02-03 13:57] VITALS: BP 116/45
--- NOTE | 2021-02-03 15:12 | Discharge Summary ---
Providers - Providers Date of Admission: 01/31/21 20:20 Date of discharge: 02/03/21 Attending physician: ANMOL RAO 01/31/21 20:26 Consult to Physician [CONS] Routine Comment: Consulting Provider: TROY ZAMORA Physician Instructions: Reason For Exam: esrd 01/31/21 20:31 Consult to Physician [CONS] Routine Comment: Consulting Provider: IVETTE KAMINSKI Physician Instructions: Reason For Exam: pui 02/01/21 19:33 Physical Therapy Evaluation and Treat [CONS] Routine Comment: Reason For Exam: weakness Primary care physician: NICOL LOWE MD Hospitalization Condition: Stable Hospital course: 80 YO Female with ESRD on HD(T,R,Sa), DM, HTN, HLD, Hypothyroidism, CAD S/P Stent Placement, Vascular Dementia, Cerebral Atherosclerosis, Obesity Hypoventilation Syndrome presents ED for evaluation with cough, body aches, malaise, fatigue, diminished exercise tolerance, subjective fever, diminished sense of smell, diminished sense of taste over the past 1 week. PIn the ER all lab and imaging studies reviewed. Patient was found to have a pulse oximetry of 86% on exertion, Chest x-ray revealed bilateral pneumonia. Patient admitted to medical floor and initiated on pneumonia protocol. Covid test was ordered and that was negative. nephrology was consulted, placed on supplemental o2. Patient's symptom improved following empiric abx, HD. She was weaned off from supplemental O2. She was then discharged home with Home health. Disposition: 30 STILL A PATIENT Final Discharge Diagnosis (Prints w/discharge instructions): -- Acute hypoxemic respiratory failure. --COVID PUI, negative test. -- Pneumonia, CAP. -- End stage renal disease. -- Hypertension. --Diabetes type 2. -- Hyperlipidemia. -- Hypothyroidism Time spent for discharge: 34 minutes Core Measure Documentation - Palliative Care Palliative Care/ Comfort Measures: Not Applicable - Core Measures Any of the following diagnoses?: none Exam - Physical Exam Narrative exam: GENERAL: well-developed and well-nourished morbidly obese lying on bed appeared to be in mild discomfort. HEENT: Normocephalic. Atraumatic. No conjunctival congestion or icterus. Patient has moist mucous membranes. NECK: Supple. Trachea midline. CHEST/LUNGS: clear BS auscultated bilaterally, HEART/CARDIOVASCULAR: Regular in rate and rhythm. S1 and S2 positive. ABDOMEN: Abdomen is soft, nontender. Patient has normal bowel sounds. SKIN: There is no rash. Warm and dry. NEURO: No focal motor deficit. Follows command. MUSCULOSKELETAL: No joint effusion or tenderness. EXTRIMITY: No edema, no cyanosis or clubbing. PSYCH: Cooperative. - Constitutional Vitals: Temp Pulse Resp BP Pulse Ox 98.8 F 62 20 116/45 98 02/03/21 12:17 02/03/21 12:17 02/03/21 12:17 02/03/21 12:17 02/03/21 12:17 Plan Activity: advance as tolerated Weight Bearing Status: Weight Bear as Tolerated Diet: renal Follow up with: NICOL LOWE MD [Primary Care Provider] - 7 Days Prescriptions: levoFLOXacin [Levaquin] 250 mg PO QDAY #3 tablet
[2021-02-03] MEDS: CHOLECALCIFEROL (VIT D3) 400 UNIT TAB PO SCH (15:23)
== END 2021-02-03 17:00 | disposition home or self-care (01) | DRG 193 ==
LOC: ED 17:34 → 3A 20:20
PROVIDERS: ADMIT Internal Medicine; ATTEND Internal Medicine
PROC: 5A1D70Z Performance of Urinary Filtration, Intermittent, Less than 6 Hours Per Day (ICD-10-PCS; principal; 2021-02-01)
PROC: 5A1D70Z Performance of Urinary Filtration, Intermittent, Less than 6 Hours Per Day (ICD-10-PCS; 2021-02-02)
DX: J18.9 Pneumonia, unspecified organism (principal); J96.01 Acute respiratory failure with hypoxia; N18.6 End stage renal disease; E66.2 Morbid (severe) obesity with alveolar hypoventilation; I12.0 Hypertensive chronic kidney disease with stage 5 chronic kidney disease or end stage renal disease; Z20.822 Contact with and (suspected) exposure to COVID-19; E03.9 Hypothyroidism, unspecified; Z88.2 Allergy status to sulfonamides; Z88.8 Allergy status to other drugs, medicaments and biological substances; Z79.82 Long term (current) use of aspirin; Z79.4 Long term (current) use of insulin; E11.22 Type 2 diabetes mellitus with diabetic chronic kidney disease; Z99.2 Dependence on renal dialysis; I25.10 Atherosclerotic heart disease of native coronary artery without angina pectoris; E78.5 Hyperlipidemia, unspecified; F01.50 Vascular dementia, unspecified severity, without behavioral disturbance, psychotic disturbance, mood disturbance, and anxiety; Z68.26 Body mass index [BMI] 26.0-26.9, adult; Z83.3 Family history of diabetes mellitus; Z82.49 Family history of ischemic heart disease and other diseases of the circulatory system; E87.6 Hypokalemia; D64.9 Anemia, unspecified; Z86.73 Personal history of transient ischemic attack (TIA), and cerebral infarction without residual deficits
CPT/HCPCS: 36415; 71046; 80048; 80053; 80074; 82140; 82728; 82962; 83615; 84145; 85025; 85379; 85610; 85730; 86140; 87040; 94760; G0378; A9270-GY; J0456; J0696; J1100; J1644; J1815; J2920; U0003

== ENCOUNTER 2021-03-24 08:37 | Emergency (ER) | payer MEDICARE ==
[2021-03-24 10:09] VITALS: BP 144/64
--- NOTE | 2021-03-24 10:44 | Emergency Department Report ---
ED General Adult HPI - General Chief complaint: Nausea/Vomiting/Diarrhea Stated complaint: NOT FEELING WELL Time Seen by Provider: 03/24/21 10:39 Source: patient, family Mode of arrival: Wheelchair Limitations: Physical Limitation - History of Present Illness Initial comments: 80-year-old -[place] female presents to the emergency room with multiple complaints. States that she has a hard time sleeping at night. When asked by her [id number] she states that the days that she has dialysis she will go to sleep as she is scared she is going to miss dialysis. She does complain of intermittent diarrhea and has seen the snuff box finisher is waiting on her stool sample. She also complains of dark spots on her forearm that has been there for several months. She states it did not hurt do not change. Severity scale (0 -10): 8 - Related Data Home Medications Medication Instructions Recorded Confirmed Last Taken Aspirin [Aspirin BABY CHEW TAB] 81 mg PO DAILY 03/30/14 02/01/21 01/30/21 08:40 Febuxostat [Uloric] 80 mg PO DAILY 03/30/14 12/09/20 12/05/20 20:00 Levothyroxine [Synthroid] 88 mcg PO DAILY 03/30/14 02/01/21 01/30/21 06:30 Metoprolol [Lopressor TAB] 50 mg PO DAILY 03/30/14 02/02/21 02/01/21 10:00 Montelukast [Singulair] 10 mg PO DAILY 03/30/14 02/02/21 02/01/21 10:00 Quetiapine Fumarate [QUEtiapine 300 mg PO DAILY 03/30/14 02/01/21 01/30/21 21:00 Fumarate] Rosuvastatin (Nf) [Crestor] 20 mg PO DAILY 03/30/14 02/01/21 12/05/20 20:00 clonazePAM 2 mg PO HS 03/30/14 02/01/21 01/31/21 23:00 sitaGLIPtin [Januvia] 50 mg PO DAILY 03/30/14 02/01/21 01/30/21 08:30 Promethazine [Phenergan] 25 mg PO Q6H PRN 05/28/14 12/09/20 12/05/20 20:00 Furosemide [Lasix] 40 mg PO DAILY 0202/02/21 02/01/21 10:00 Previous Rx's Medication Instructions Recorded Last Taken Type Albuterol Mdi (or & Nicu Only) 2 puff IH QID PRN #1 inhalation 03/30/14 12/05/20 20:00 Rx [ProAir HFA Inhaler] levoFLOXacin [Levaquin] 250 mg PO QDAY #3 tablet 02/03/21 Unknown Rx Allergies Allergy/AdvReac Type Severity Reaction Status Date / Time celecoxib Allergy Unknown Verified 05/28/14 23:14 Sulfa (Sulfonamide AdvReac Nausea Verified 03/30/14 16:40 Antibiotics) ED Review of Systems ROS: Stated complaint: NOT FEELING WELL Other details as noted in HPI ED Past Medical Hx - Past Medical History Hx Hypertension: Yes Hx Diabetes: Yes Hx Renal Disease: Yes (Dialysis T, Th, Thu) Hx Sickle Cell Disease: No Hx Asthma: No Hx Dementia: Yes Hx HIV: No - Surgical History Hx Coronary Stent: Yes (2 times) Additional Surgical History: stents 2008 - Social History Smoking Status: Never Smoker - Medications Home Medications: Home Medications Medication Instructions Recorded Confirmed Last Taken Type Albuterol Mdi (or & Nicu Only) 2 puff IH QID PRN #1 inhalation 03/30/14 12/09/20 12/05/20 20:00 Rx [ProAir HFA Inhaler] Aspirin [Aspirin BABY CHEW TAB] 81 mg PO DAILY 03/30/14 02/01/21 01/30/21 08:40 History Febuxostat [Uloric] 80 mg PO DAILY 03/30/14 12/09/20 12/05/20 20:00 History Levothyroxine [Synthroid] 88 mcg PO DAILY 03/30/14 02/01/21 01/30/21 06:30 History Metoprolol [Lopressor TAB] 50 mg PO DAILY 03/30/14 02/02/21 02/01/21 10:00 History Montelukast [Singulair] 10 mg PO DAILY 03/30/14 02/02/21 02/01/21 10:00 History Quetiapine Fumarate [QUEtiapine 300 mg PO DAILY 03/30/14 02/01/21 01/30/21 21:00 History Fumarate] Rosuvastatin (Nf) [Crestor] 20 mg PO DAILY 03/30/14 02/01/21 12/05/20 20:00 History clonazePAM 2 mg PO HS 03/30/14 02/01/21 01/31/21 23:00 History sitaGLIPtin [Januvia] 50 mg PO DAILY 03/30/14 02/01/21 01/30/21 08:30 History Promethazine [Phenergan] 25 mg PO Q6H PRN 05/28/14 12/09/20 12/05/20 20:00 History Furosemide [Lasix] 40 mg PO DAILY 05/29/14 02/02/21 02/01/21 10:00 History levoFLOXacin [Levaquin] 250 mg PO QDAY #3 tablet 02/03/21 Unknown Rx ED Physical Exam - General Limitations: Physical Limitation ED Course Vital Signs 03/24/21 10:03 Temperature 99.6 F Pulse Rate 70 Respiratory 20 Rate Blood Pressure 144/64 [Right] O2 Sat by Pulse 99 Oximetry Critical care attestation.: If time is entered above; I have spent that time in minutes in the direct care of this critically ill patient, excluding procedure time. ED Disposition Clinical Impression: End stage renal disease, Diabetes, Hyperpigmented skin lesion, Insomnia, Anxiety Disposition: 01 HOME / SELF CARE / HOMELESS Is pt being admited?: No Does the pt Need Aspirin: No Condition: Stable Instructions: Diabetes Mellitus Type 2 in Adults (ED), Seborrheic Keratosis Additional Instructions: Recommend having patient on a schedule for when she goes to bed to be sure she is able to get adequate sleep to get up in the morning for her dialysis. Recommend Benadryl 25 mg at bedtime. Turn lights out soft music turn TV off. Follow-up with her primary care provider and her GI specialist. Referrals: [facility] [Provider Group] - 3-5 Days Your, primary care provider [Other] - 3-5 Days Time of Disposition: 10:45
== END 2021-03-24 12:02 | disposition home or self-care (01) ==
LOC: ED 08:37
DX: E11.22 Type 2 diabetes mellitus with diabetic chronic kidney disease (principal); N18.6 End stage renal disease; L81.9 Disorder of pigmentation, unspecified; G47.00 Insomnia, unspecified; F41.9 Anxiety disorder, unspecified; I10 Essential (primary) hypertension; Z88.2 Allergy status to sulfonamides; Z88.6 Allergy status to analgesic agent
CPT/HCPCS: 99282

== ENCOUNTER 2021-04-21 23:38 | Inpatient (IN) | payer MEDICARE ==
[2021-04-21] MEDS ORDERED: AZITHROMYCIN/NS 500 MG/250 ML 500 MG/250 ML BAG IV ONE (23:45)
[2021-04-21] MEDS ORDERED: cefTRIAXone/NS 2 GM/100 ML 2 GM/100 ML BAG IV ONE (23:45)
[2021-04-22] MEDS ORDERED: dexAMETHasone 4 MG/ML VIAL IV ONE ×2 (00:25→04:05)
[2021-04-22 00:43] LABS: Basophils % (Auto) 0.7 % (0.0-1.8); Hematocrit 30.8 % (30.3-42.9); Hemoglobin 9.8 gm/dl (10.1-14.3); Lymphocytes # (Auto) 0.6 K/mm3 (1.2-5.4); Lymphocytes % (Auto) 10.7 % (13.4-35.0); Mean Corpuscular HGB Conc 32 % (30-34); Mean Corpuscular Volume 92 fl (79-97); Monocytes # (Auto) 0.3 K/mm3 (0.0-0.8); Monocytes % (Auto) 5.4 % (0.0-7.3); Platelet Count 146 K/mm3 (140-440); Red Blood Count 3.36 M/mm3 (3.65-5.03); Red Cell Distribution Width 17.2 % (13.2-15.2)
[2021-04-22 00:57] LABS: Calcium 9.3 mg/dL (8.4-10.2)
--- NOTE | 2021-04-22 01:12 | Emergency Department Report ---
ED Shortness of Breath HPI - General Chief Complaint: Dyspnea/Respdistress Stated Complaint: MIKY/SOB Time Seen by Provider: 04/21/21 23:45 Source: EMS Mode of arrival: Stretcher Limitations: No Limitations - History of Present Illness Initial Comments: 80-year female with a past medical history end-stage renal disease on dialysis, hypertension,, dementia, diabetes, and hypertension, CAD with stent x2 presents to the hospital with complaints of shortness of breath and hypoxia. Patient was apparently diagnosed with COVID on April 17 at [facility] ER. She was discharged on azithromycin and Tessalon Perles. Tonight patient was found on the floor by her family members and placed into the bed and 911 notified. EMS reports a fever of 104 and states was in the 80s on room air. Patient placed on nonrebreather with O2 sat of 92 to 93%. Patient oriented to year and self. She denies any pain. Patient receives dialysis Thursday, , and Thursday and has been compliant. 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 As per medical record patient has been managed by Dr Horner in the past - Related Data Home Medications Medication Instructions Recorded Confirmed Last Taken Aspirin [Aspirin BABY CHEW TAB] 81 mg PO DAILY 03/30/14 02/01/21 01/30/21 08:40 Febuxostat [Uloric] 80 mg PO DAILY 03/30/14 12/09/20 12/05/20 20:00 Levothyroxine [Synthroid] 88 mcg PO DAILY 03/30/14 02/01/21 01/30/21 06:30 Metoprolol [Lopressor TAB] 50 mg PO DAILY 03/30/14 02/02/21 02/01/21 10:00 Montelukast [Singulair] 10 mg PO DAILY 03/30/14 02/02/21 02/01/21 10:00 Quetiapine Fumarate [QUEtiapine 300 mg PO DAILY 03/30/14 02/01/21 01/30/21 21:00 Fumarate] Rosuvastatin (Nf) [Crestor] 20 mg PO DAILY 03/30/14 02/01/21 12/05/20 20:00 clonazePAM 2 mg PO HS 03/30/14 02/01/21 01/31/21 23:00 sitaGLIPtin [Januvia] 50 mg PO DAILY 03/30/14 02/01/21 01/30/21 08:30 Promethazine [Phenergan] 25 mg PO Q6H PRN 05/28/14 12/09/20 12/05/20 20:00 Furosemide [Lasix] 40 mg PO DAILY 05/29/14 02/02/21 02/01/21 10:00 Previous Rx's Medication Instructions Recorded Last Taken Type Albuterol Mdi (or & Nicu Only) 2 puff IH QID PRN #1 inhalation 03/30/14 12/05/20 20:00 Rx [ProAir HFA Inhaler] levoFLOXacin [Levaquin] 250 mg PO QDAY #3 tablet 02/03/21 Unknown Rx Allergies Allergy/AdvReac Type Severity Reaction Status Date / Time celecoxib Allergy Unknown Verified 04/22/21 00:07 Sulfa (Sulfonamide AdvReac Nausea Verified 04/22/21 00:07 Antibiotics) ED Review of Systems ROS: Stated complaint: MIKY/SOB Other details as noted in HPI Comment: All other systems reviewed and negative ED Past Medical Hx - Past Medical History Hx Hypertension: Yes Hx Diabetes: Yes Hx Renal Disease: Yes (Dialysis T, Th, Sat) Hx Sickle Cell Disease: No Hx Asthma: No Hx Dementia: Yes Hx HIV: No - Surgical History Hx Coronary Stent: Yes (2 times) Additional Surgical History: stents 2008 - Social History Smoking Status: Never Smoker - Medications Home Medications: Home Medications Medication Instructions Recorded Confirmed Last Taken Type Albuterol Mdi (or & Nicu Only) 2 puff IH QID PRN #1 inhalation 03/30/14 12/09/20 12/05/20 20:00 Rx [ProAir HFA Inhaler] Aspirin [Aspirin BABY CHEW TAB] 81 mg PO DAILY 03/30/14 02/01/21 01/30/21 08:40 History Febuxostat [Uloric] 80 mg PO DAILY 03/30/14 12/09/20 12/05/20 20:00 History Levothyroxine [Synthroid] 88 mcg PO DAILY 03/30/14 02/01/21 01/30/21 06:30 History Metoprolol [Lopressor TAB] 50 mg PO DAILY 03/30/14 02/02/21 02/01/21 10:00 History Montelukast [Singulair] 10 mg PO DAILY 03/30/14 02/02/21 02/01/21 10:00 History Quetiapine Fumarate [QUEtiapine 300 mg PO DAILY 03/30/14 02/01/21 01/30/21 21:00 History Fumarate] Rosuvastatin (Nf) [Crestor] 20 mg PO DAILY 03/30/14 02/01/21 12/05/20 20:00 History clonazePAM 2 mg PO HS 03/30/14 02/01/21 01/31/21 23:00 History sitaGLIPtin [Januvia] 50 mg PO DAILY 03/30/14 02/01/21 01/30/21 08:30 History Promethazine [Phenergan] 25 mg PO Q6H PRN 05/28/14 12/09/20 12/05/20 20:00 History Furosemide [Lasix] 40 mg PO DAILY 05/29/14 02/02/21 02/01/21 10:00 History levoFLOXacin [Levaquin] 250 mg PO QDAY #3 tablet 02/03/21 Unknown Rx ED Physical Exam - General Limitations: No Limitations - Other Other exam information: General: Comfortable on nonrebreather Head: Atraumatic Eyes: normal appearance Neck: Normal appearance, no midline tenderness Chest: Mild crackles right base CV: Regular rate and rhythm Abdomen: Soft, normal bowel sounds, nontender, nondistended, no rebound or guarding Back: Normal inspection Extremity: No edema Neuro: Alert O x 2 Psych: Appropriate behavior Skin: No rash ED Course Vital Signs 04/22/21 04/22/21 04/22/21 00:30 00:47 01:01 Temperature 99.4 F Pulse Rate 75 Respiratory 20 Rate Blood Pressure 119/40 Blood Pressure 115/45 [Right] O2 Sat by Pulse 94 94 100 Oximetry 04/22/21 04/22/21 04/22/21 01:15 01:31 01:45 Temperature Pulse Rate Respiratory Rate Blood Pressure 119/40 116/34 116/34 Blood Pressure [Right] O2 Sat by Pulse 86 97 100 Oximetry 04/22/21 04/22/21 04/22/21 03:15 03:31 04:01 Temperature Pulse Rate 102 H 102 H 105 H Respiratory 24 23 27 H Rate Blood Pressure 126/42 125/46 139/46 Blood Pressure [Right] O2 Sat by Pulse 99 81 L 83 L Oximetry 04/22/21 04/22/21 04:31 05:01 Temperature Pulse Rate 109 H 107 H Respiratory 24 28 H Rate Blood Pressure 132/52 139/53 Blood Pressure [Right] O2 Sat by Pulse 85 100 Oximetry ED Medical Decision Making - Lab Data Result diagrams: 04/22/21 00:23 04/22/21 00:23 Lab Results 04/22/21 04/22/21 04/22/21 Range/Units 00:23 00:23 00:23 WBC 5.2 (4.5-11.0) K/mm3 RBC 3.36 L (3.65-5.03) M/mm3 Hgb 9.8 L (10.1-14.3) gm/dl Hct 30.8 (30.3-42.9) % MCV 92 (79-97) fl MCH 29 (28-32) pg MCHC 32 (30-34) % RDW 17.2 H (13.2-15.2) % Plt Count 146 (140-440) K/mm3 Lymph % (Auto) 10.7 L (13.4-35.0) % [place] % (Auto) 5.4 (0.0-7.3) % Eos % (Auto) 0.0 (0.0-4.3) % Baso % (Auto) 0.7 (0.0-1.8) % Lymph # (Auto) 0.6 L (1.2-5.4) K/mm3 [place] # (Auto) 0.3 (0.0-0.8) K/mm3 Eos # (Auto) 0.0 (0.0-0.4) K/mm3 Baso # (Auto) 0.0 (0.0-0.1) K/mm3 Seg Neutrophils % 83.2 H (40.0-70.0) % Seg Neutrophils # 4.3 (1.8-7.7) K/mm3 D-Dimer 3117.47 H (0-234) ng/mlDDU Sodium (137-145) mmol/L Potassium (3.6-5.0) mmol/L Chloride (98-107) mmol/L Carbon Dioxide (22-30) mmol/L Anion Gap mmol/L BUN (7-17) mg/dL Creatinine (0.6-1.2) mg/dL Estimated GFR ml/min BUN/Creatinine Ratio % Glucose (65-100) mg/dL POC Glucose (70-105) mg/dL Lactic Acid (0.7-2.0) mmol/L Calcium (8.4-10.2) mg/dL Ferritin > 2000.0 H (10.0-200.0) ng/mL Total Bilirubin (0.1-1.2) mg/dL AST (5-40) units/L ALT (7-56) units/L Alkaline Phosphatase (35-129) units/L Lactate Dehydrogenase (91-180) units/L C-Reactive Protein (0.00-1.30) mg/dL Total Protein (6.3-8.2) g/dL Albumin (3.9-5) g/dL Albumin/Globulin Ratio % 04/22/21 04/22/21 04/22/21 Range/Units 00:23 00:23 03:04 WBC (4.5-11.0) K/mm3 RBC (3.65-5.03) M/mm3 Hgb (10.1-14.3) gm/dl Hct (30.3-42.9) % MCV (79-97) fl MCH (28-32) pg MCHC (30-34) % RDW (13.2-15.2) % Plt Count (140-440) K/mm3 Lymph % (Auto) (13.4-35.0) % [place] % (Auto) (0.0-7.3) % Eos % (Auto) (0.0-4.3) % Baso % (Auto) (0.0-1.8) % Lymph # (Auto) (1.2-5.4) K/mm3 [place] # (Auto) (0.0-0.8) K/mm3 Eos # (Auto) (0.0-0.4) K/mm3 Baso # (Auto) (0.0-0.1) K/mm3 Seg Neutrophils % (40.0-70.0) % Seg Neutrophils # (1.8-7.7) K/mm3 D-Dimer (0-234) ng/mlDDU Sodium 138 (137-145) mmol/L Potassium 4.2 (3.6-5.0) mmol/L Chloride 95.0 L (98-107) mmol/L Carbon Dioxide 26 (22-30) mmol/L Anion Gap 21 mmol/L BUN 40 H (7-17) mg/dL Creatinine 9.4 H (0.6-1.2) mg/dL Estimated GFR 5 ml/min BUN/Creatinine Ratio 4 % Glucose 108 H (65-100) mg/dL POC Glucose 66 L (70-105) mg/dL Lactic Acid 0.90 (0.7-2.0) mmol/L Calcium 9.3 (8.4-10.2) mg/dL Ferritin (10.0-200.0) ng/mL Total Bilirubin 0.40 (0.1-1.2) mg/dL AST 35 (5-40) units/L ALT 16 (7-56) units/L Alkaline Phosphatase 49 (35-129) units/L Lactate Dehydrogenase 493 H (91-180) units/L C-Reactive Protein 34.80 H (0.00-1.30) mg/dL Total Protein 6.3 (6.3-8.2) g/dL Albumin 3.0 L (3.9-5) g/dL Albumin/Globulin Ratio 0.9 % - EKG Data -: EKG Interpreted by Fl EKG shows normal: sinus rhythm (sinus with artifact (i dont believe its afib at this time)), ST-T waves (not stemi) - Radiology Data Radiology results: report reviewed CHEST 1 VIEW 04/22/2021 1:11 AM INDICATION / CLINICAL INFORMATION: sob, hypoxia, covid +. COMPARISON: 01/31/21 FINDINGS: SUPPORT DEVICES: None. HEART / MEDIASTINUM: No significant abnormality. LUNGS / PLEURA: Patchy bilateral pulmonary opacities. No pneumothorax. ADDITIONAL FINDINGS: No significant additional findings. IMPRESSION: 1. Patchy bilateral pneumonia which can be seen in atypical/viral pneumonia such as COVID. CT HEAD WITHOUT CONTRAST INDICATION / CLINICAL INFORMATION: found on floor, covid +. TECHNIQUE: All CT scans at this location are performed using CT dose reduction for ALARA by means of automated exposure control. COMPARISON: CT dated 12/05/20 FINDINGS: HEMORRHAGE: None. EXTRA-AXIAL SPACES: Normal in size and morphology for the patient's age. VENTRICULAR SYSTEM: Normal in size and morphology for the patient's age. CEREBRAL PARENCHYMA: No significant abnormality. No acute territorial infarct. MIDLINE SHIFT / HERNIATION: None. CEREBELLUM / BRAINSTEM: No significant abnormality. ORBITS: Normal as visualized. SOFT TISSUES: No significant abnormality. SKULL: No significant abnormality. PARANASAL SINUSES / MASTOID AIR CELLS: Normal as visualized. ADDITIONAL FINDINGS: None. IMPRESSION: 1. No acute intracranial abnormality. No significant change. CT CERVICAL SPINE WITHOUT CONTRAST INDICATION / CLINICAL INFORMATION: found on floor, covid +. Shortness of breath and hypoxia. TECHNIQUE: Axial CT images were obtained through the cervical spine. Sagittal and coronal reformatted images were produced. All CT scans at this location are performed using CT dose reduction for ALARA by means of automated exposure control. COMPARISON: None available. FINDINGS: VERTEBRAE: No significant abnormality. ALIGNMENT: No significant abnormality. DISC SPACES: No significant abnormality. FACET JOINTS: Mild multilevel facet arthropathy. CRANIOCERVICAL JUNCTION:No significant abnormality. SPINAL CANAL: No significant abnormality. PARASPINAL SOFT TISSUES: Mild bilateral atherosclerotic calcification of the carotid bulbs. ADDITIONAL FINDINGS: None. LUNG APICES: Patchy, groundglass pulmonary opacities in the left lung apex. IMPRESSION: 1. No acute fracture or subluxation. 2. Patchy pneumonia in the left lung apex which can be seen in atypical/viral pneumonia such as COVID. - Medical Decision Making 80-year-old female presents to the hospital with hypoxic and COVID-pneumonia. Patient treated as per sepsis protocol however, 30 mL/kg bolus of normal saline not provided as patient lacked hypotension or lactic acidosis. Patient treated with antibiotics for community-acquired pneumonia and Decadron. COVID order set initiated and confirmation test pending. COVID markers elevated. Patient satting 94% on 4 L nasal cannula oxygen. Patient did have episode of hypoglycemia and was treated with D50. I have placed an order to reconsult Dr. Horner to manage inpatient dialysis. Patient does not require dialysis at this time Critical Care Time: Yes Critical care attestation.: If time is entered above; I have spent that time in minutes in the direct care of this critically ill patient, excluding procedure time. Critical Care Time: 35 Minutes of critical care time excluding procedures were used in the care of the patient. I came immediately to the bedside upon patient's arrival. I obtained history from EMS at the bedside. I discussed treatment plan with the nursing team members. I reviewed electronic record. I spoke with family to obtain medical history. Patient required multiple interventions and reassessments. ED Disposition Clinical Impression: Pneumonia due to COVID-19 virus, Acute respiratory failure with hypoxia, ESRD (end stage renal disease) on dialysis Disposition: 09 ADMITTED INPATIENT Is pt being admited?: Yes Condition: Stable Time of Disposition: 03:46 (Dr Sebastian)
--- NOTE | 2021-04-22 01:32 | XRay Report ---
CHEST 1 VIEW 04/22/2021 1:11 AM INDICATION / CLINICAL INFORMATION: sob, hypoxia, covid +. COMPARISON: 01/31/21 FINDINGS: SUPPORT DEVICES: None. HEART / MEDIASTINUM: No significant abnormality. LUNGS / PLEURA: Patchy bilateral pulmonary opacities. No pneumothorax. ADDITIONAL FINDINGS: No significant additional findings. IMPRESSION: 1. Patchy bilateral pneumonia which can be seen in atypical/viral pneumonia such as COVID. Signer Name: Mark Winslow MD Signed: 04/22/2021 1:27 AM Workstation Name: [id number]
[2021-04-22 02:01] LABS: C-Reactive Protein 34.8 mg/dL (0.00-1.30)
--- NOTE | 2021-04-22 02:31 | Cat Scan Report ---
CT HEAD WITHOUT CONTRAST INDICATION / CLINICAL INFORMATION: found on floor, covid +. TECHNIQUE: All CT scans at this location are performed using CT dose reduction for ALARA by means of automated exposure control. COMPARISON: CT dated 12/05/20 FINDINGS: HEMORRHAGE: None. EXTRA-AXIAL SPACES: Normal in size and morphology for the patient's age. VENTRICULAR SYSTEM: Normal in size and morphology for the patient's age. CEREBRAL PARENCHYMA: No significant abnormality. No acute territorial infarct. MIDLINE SHIFT / HERNIATION: None. CEREBELLUM / BRAINSTEM: No significant abnormality. ORBITS: Normal as visualized. SOFT TISSUES: No significant abnormality. SKULL: No significant abnormality. PARANASAL SINUSES / MASTOID AIR CELLS: Normal as visualized. ADDITIONAL FINDINGS: None. IMPRESSION: 1. No acute intracranial abnormality. No significant change. Signer Name: Mark Winslow MD Signed: 04/22/2021 2:26 AM Workstation Name: [id number]
--- NOTE | 2021-04-22 02:33 | Cat Scan Report ---
CT CERVICAL SPINE WITHOUT CONTRAST INDICATION / CLINICAL INFORMATION: found on floor, covid +. Shortness of breath and hypoxia. TECHNIQUE: Axial CT images were obtained through the cervical spine. Sagittal and coronal reformatted images were produced. All CT scans at this location are performed using CT dose reduction for ALARA by means of automated exposure control. COMPARISON: None available. FINDINGS: VERTEBRAE: No significant abnormality. ALIGNMENT: No significant abnormality. DISC SPACES: No significant abnormality. FACET JOINTS: Mild multilevel facet arthropathy. CRANIOCERVICAL JUNCTION:No significant abnormality. SPINAL CANAL: No significant abnormality. PARASPINAL SOFT TISSUES: Mild bilateral atherosclerotic calcification of the carotid bulbs. ADDITIONAL FINDINGS: None. LUNG APICES: Patchy, groundglass pulmonary opacities in the left lung apex. IMPRESSION: 1. No acute fracture or subluxation. 2. Patchy pneumonia in the left lung apex which can be seen in atypical/viral pneumonia such as COVID . Signer Name: Mark Winslow MD Signed: 04/22/2021 2:28 AM Workstation Name: [id number]
[2021-04-22] MEDS ORDERED: cefTRIAXone/NS 2 GM/100 ML 2 GM/100 ML BAG IV ONE (04:00)
[2021-04-22] MEDS ORDERED: AZITHROMYCIN/NS 500 MG/250 ML 500 MG/250 ML BAG IV ONE (04:00)
[2021-04-22] MEDS ORDERED: ONDANSETRON 4 MG/2 ML INJ IV PRN (04:47)
[2021-04-22] MEDS ORDERED: HYDROmorphone 1 MG/1 ML INJ IV PRN (04:47)
[2021-04-22] MEDS ORDERED: ALBUTEROL 2.5 MG/3 ML NEBU IH PRN (04:47)
[2021-04-22] MEDS ORDERED: DEXTROSE 50% IN WATER (25GM) 50 ML SYRINGE IV PRN ×2 (04:47→13:00)
[2021-04-22] MEDS ORDERED: ACETAMINOPHEN 325 MG TAB PO PRN (04:47)
[2021-04-22] MEDS ORDERED: hydrALAZINE 20 MG/1 ML INJ IV PRN (04:51)
--- NOTE | 2021-04-22 04:56 | History and Physical Report ---
History of Present Illness Date of examination: 04/22/21 Date of admission: 04/22/21 Chief complaint: Dyspnea Respiratory distress History of present illness: 80-year female with a past medical history end-stage renal disease on dialysis, hypertension,, dementia, diabetes, and hypertension, CAD with stent x2 was brought to the emergency room because of shortness of breath and hypoxia. Patient was apparently diagnosed with COVID on April 17 at [facility]. She was discharged on azithromycin and Tessalon Perles. Tonight patient was found on the floor by her family members and placed into the bed and 911 notified. EMS reports a fever of 104 and states was in the 80s on room air. Patient placed on nonrebreather with O2 sat of 92 to 93%. Patient oriented to year and self. She denies any pain. Patient receives dialysis Thursday, , and Thursday and has been compliant. In the emergency room patient D-dimer was 3117.47. BUN was 40 creatinine is 94, ferritin is greater than 2000. Chest x-ray shows patchy bilateral pneumonia which can be seen in atypical viral pneumonia such as COVID. Showed going to admit the patient to put the patient on Rocephin Zithromax and Decadron. We consulted nephrology as well as infectious disease for evaluation Past History Past Medical History: diabetes, ESRD, hypertension, renal failure, other (Dementia) Medications and Allergies Allergies Allergy/AdvReac Type Severity Reaction Status Date / Time celecoxib Allergy Unknown Verified 04/22/21 00:07 Sulfa (Sulfonamide AdvReac Nausea Verified 04/22/21 00:07 Antibiotics) Home Medications Medication Instructions Recorded Confirmed Last Taken Type Albuterol Mdi (or & Nicu Only) 2 puff IH QID PRN #1 inhalation 03/30/14 12/09/20 12/05/20 20:00 Rx [ProAir HFA Inhaler] Aspirin [Aspirin BABY CHEW TAB] 81 mg PO DAILY 03/30/14 02/01/21 01/30/21 08:40 History Febuxostat [Uloric] 80 mg PO DAILY 03/30/14 12/09/20 12/05/20 20:00 History Levothyroxine [Synthroid] 88 mcg PO DAILY 03/30/14 02/01/21 01/30/21 06:30 History Metoprolol [Lopressor TAB] 50 mg PO DAILY 03/30/14 02/02/21 02/01/21 10:00 History Montelukast [Singulair] 10 mg PO DAILY 03/30/14 02/02/21 02/01/21 10:00 History Quetiapine Fumarate [QUEtiapine 300 mg PO DAILY 03/30/14 02/01/21 01/30/21 21:00 History Fumarate] Rosuvastatin (Nf) [Crestor] 20 mg PO DAILY 03/30/14 02/01/21 12/05/20 20:00 History clonazePAM 2 mg PO HS 03/30/14 02/01/21 01/31/21 23:00 History sitaGLIPtin [Januvia] 50 mg PO DAILY 03/30/14 02/01/21 01/30/21 08:30 History Promethazine [Phenergan] 25 mg PO Q6H PRN 05/28/14 12/09/20 12/05/20 20:00 His tory Furosemide [Lasix] 40 mg PO DAILY 05/29/14 02/02/21 02/01/21 10:00 History levoFLOXacin [Levaquin] 250 mg PO QDAY #3 tablet 02/03/21 Unknown Rx Active Meds: Active Medications Azithromycin (Zithromax/Ns) 500 mg in 250 mls @ 250 mls/hr IV ONCE ONE; Protocol Stop: 04/22/21 04:59 Review of Systems All systems: negative Cardiovascular: shortness of breath, dyspnea on exertion Respiratory: cough, shortness of breath, dyspnea on exertion Exam - Constitutional Vitals: Temp Pulse Resp BP Pulse Ox 99.4 F 75 20 116/34 97 04/22/21 00:30 04/22/21 00:30 04/22/21 00:30 04/22/21 01:31 04/22/21 01:31 General appearance: Present: no acute distress, well-nourished - EENT Eyes: Present: PERRL ENT: hearing intact, clear oral mucosa - Neck Neck: Present: supple, normal ROM - Respiratory Respiratory effort: normal Respiratory: bilateral: diminished - Cardiovascular Heart Sounds: Present: S1 & S2. Absent: rub, click - Extremities Extremities: pulses symmetrical, No edema Peripheral Pulses: within normal limits - Abdominal General gastrointestinal: Present: soft, non-tender, non-distended, normal bowel sounds Female genitourinary: Present: normal - Integumentary Integumentary: Present: clear, warm, dry - Musculoskeletal Musculoskeletal: gait normal, strength equal bilaterally - Psychiatric Psychiatric: appropriate mood/affect, intact judgment & insight - Neurologic Neurologic: CNII-XII intact, moves all extremities Results - Labs CBC & Chem 7: 04/22/21 00:23 04/22/21 00: Labs: Laboratory Last Values WBC 5.2 K/mm3 (4.5-11.0) 04/22/21 00: RBC 3.36 M/mm3 (3.65-5.03) L 04/22/21 00: Hgb 9.8 gm/dl (10.1-14.3) L 04/22/21: Hct 30.8 % (30.3-42.9) 04/22/21 00: MCV 92 fl (79-97) 04/22/21 00: MCH 29 pg (28-32) 04/22/21 00: MCHC 32 % (30-34) 04/22/21 00: RDW 17.2 % (13.2-15.2) H 04/22/21 00: Plt Count 146 K/mm3 (140-440) 04/22/21 00: Lymph % (Auto) 10.7 % (13.4-35.0) L 04/22/21 00: [place] % (Auto) 5.4 % (0.0-7.3) 04/22/21 00: Eos % (Auto) 0.0 % (0.0-4.3) 04/22/21 00: Baso % (Auto) 0.7 % (0.0-1.8) 04/22/21 00: Lymph # (Auto) 0.6 K/mm3 (1.2-5.4) L 04/22/21 00: [place] # (Auto) 0.3 K/mm3 (0.0-0.8) 04/22/21 00: Eos # (Auto) 0.0 K/mm3 (0.0-0.4) 04/22/21 00: Baso # (Auto) 0.0 K/mm3 (0.0-0.1) 04/22/21 00:23 Seg Neutrophils % 83.2 % (40.0-70.0) H 04/22/21 00:23 Seg Neutrophils # 4.3 K/mm3 (1.8-7.7) 04/22/21 00:23 D-Dimer 3117.47 ng/mlDDU (0-234) H 04/22/21 00:23 Sodium 138 mmol/L (137-145) 04/22/21 00:23 Potassium 4.2 mmol/L (3.6-5.0) 04/22/21 00:23 Chloride 95.0 mmol/L (98-107) L 04/22/21 00:23 Carbon Dioxide 26 mmol/L (22-30) 04/22/21 00:23 Anion Gap 21 mmol/L 04/22/21 00:23 BUN 40 mg/dL (7-17) H 04/22/21 00:23 Creatinine 9.4 mg/dL (0.6-1.2) H 04/22/21 00:23 Estimated GFR 5 ml/min 04/22/21 00: BUN/Creatinine Ratio 4 % 04/22/21 00:23 Glucose 108 mg/dL (65-100) H 04/22/21 00:23 POC Glucose 66 mg/dL (70-105) L 04/22/21 03:04 Lactic Acid 0.90 mmol/L (0.7-2.0) 04/22/21 00:23 Calcium 9.3 mg/dL (8.4-10.2) 04/22/21 00:23 Ferritin > 2000.0 ng/mL (10.0-200.0) H 04/22/21 00:23 Total Bilirubin 0.40 mg/dL (0.1-1.2) 04/22/21 00:23 AST 35 units/L (5-40) 04/22/21 00:23 ALT 16 units/L (7-56) 04/22/21 00:23 Alkaline Phosphatase 49 units/L (35-129) 04/22/21 00:23 Lactate Dehydrogenase 493 units/L (91-180) H 04/22/21 00:23 C-Reactive Protein 34.80 mg/dL (0.00-1.30) H 04/22/21 00:23 Total Protein 6.3 g/dL (6.3-8.2) 04/22/21 00:23 Albumin 3.0 g/dL (3.9-5) L 04/22/21 00:23 Albumin/Globulin Ratio 0.9 % 04/22/21 00:23 Microbiology: Microbiology 04/22/21 00:23 Peripheral/Venous Blood Culture - Preliminary Culture in Progress 04/22/21 00:28 Peripheral/Venous Blood Culture - Preliminary Culture in Progress - Imaging and Cardiology Chest x-ray: report reviewed CT Scan - head: report reviewed Assessment and Plan VTE prophylaxis?: Chemical Plan of care discussed with patient/family: Yes - Patient Problems (1) Acute respiratory failure with hypoxia Current Visit: Yes Status: Acute Plan to address problem: Admit the patient to [facility]. Patient is on nonrebreather. DuoNeb nebulizer every 4 hours. Albuterol via nebulizer every 4 hours as needed. Rocephin 2 g IV daily. Zithromax 500 mg IV daily. Decadron 6 mg IV daily. Follow COVID inflammatory marker. We will consult infectious disease for evaluation (2) Pneumonia due to COVID-19 virus Current Visit: Yes Status: Acute Plan to address problem: Patient is on nonrebreather. DuoNeb nebulizer every 4 hours. Albuterol via nebulizer every 4 hours as needed. Rocephin 2 g IV daily. Zithromax 500 mg IV daily. Decadron 6 mg IV daily. Follow COVID inflammatory marker. We will consult infectious disease for evaluation (3) ESRD (end stage renal disease) on dialysis Current Visit: Yes Status: Acute Plan to address problem: Avoid nephrotoxic drugs. Renally dose medication. Reconsult Dr. Horner for hemodialysis. Recheck BMP in the morning (4) CVA (cerebral vascular accident) Current Visit: No Status: Acute Plan to address problem: Aspirin 81 mg p.o. daily, Crestor 20 mg p.o. daily. We will continue the home medication outpatient follow-up with neurology (5) Diabetes Current Visit: No Status: Acute (6) Hyperlipidemia Current Visit: No Status: Acute Qualifiers: Plan to address problem: Crestor 20 mg p.o. daily. (7) Hypertension Current Visit: No Status: Acute Qualifiers: Plan to address problem: Metoprolol 50 mg p.o. daily. Hydralazine 10 mg IV every 6 hours as needed. We will monitor the patient closely (8) DVT prophylaxis Current Visit: No Status: Acute Plan to address problem: Heparin 5000 units subcu every 8 hours for DVT prophylaxis. Pepcid 20 mg p.o. twice daily for GI prophylaxis. Patient is a full code
[2021-04-22] MEDS: HEPARIN 5,000 UNIT/1 ML VIAL SUB-Q SCH ×2 (06:36→17:33)
[2021-04-22] MEDS: LEVOTHYROXINE 88 MCG TAB PO SCH (06:37)
[2021-04-22] MEDS: INSULIN LISPRO 100 UNIT/ML SUB-Q SCH ×3 (08:28→17:34)
[2021-04-22] MEDS: IPRATROPIUM/ALBUTEROL SULFATE 3 ML AMPUL.NEB IH SCH ×3 (08:29→20:47)
[2021-04-22] MEDS ORDERED: VANCOMYCIN 1,000 MG in SODIUM CHLORIDE 0.9% 500 ML 500 ML IV ONE (09:03)
[2021-04-22] MEDS ORDERED: VANCOMYCIN PHARMACY TO DOSE IV SCH (10:00)
[2021-04-22] MEDS ORDERED: FAMOTIDINE 20 MG TAB PO SCH (10:00)
[2021-04-22] MEDS ORDERED: QUETIAPINE FUMARATE 300 MG PO SCH (10:00)
[2021-04-22] MEDS ORDERED: NON-FORMULARY EACH (Rosuvastatin (Nf) 20 MG Tablet) PO SCH (10:00)
[2021-04-22] MEDS: METOPROLOL TARTRATE 50 MG TAB PO SCH (11:34)
[2021-04-22] MEDS: FUROSEMIDE 40 MG TAB PO SCH (11:34)
[2021-04-22] MEDS: ASPIRIN 81 MG TAB CHEW PO SCH (11:34)
[2021-04-22] MEDS: FAMOTIDINE 10 MG TAB PO SCH (11:34)
[2021-04-22] MEDS: MONTELUKAST 10 MG TAB PO SCH (11:34)
[2021-04-22] MEDS: QUEtiapine 100 MG TAB PO SCH (11:35)
--- NOTE | 2021-04-22 13:02 | Event Note ---
Date: 04/22/21 The patient was seen and evaluated this morning, and she was found to be hemodynamically stable. The patient is pending coronavirus PCR. The patient will continue antibiotics in the meantime for treatment of presumed sepsis secondary to pneumonia.
--- NOTE | 2021-04-22 13:04 | Consultation ---
History of Present Illness - Reason for Consult Consult date: 04/22/21 end stage renal disease - History of Present Illness The patient is a 80 YO female with history significant for DM, HTN, Anemia, Dementia, CAD s/p stent and ESRD on HD(TTS) who presented to [facility] ED 04/22/21 with c/o sob. Patient is a poor historian and there was no family member at the bedside. Pt was found hypoxic in ED. Patient was apparently diagnosed with COVID on April 17 at [facility] ER. She was discharged on azithromycin and Tessalon Perles. EMS reported a fever of 104 and states was in the 80s on room air. Patient placed on nonrebreather with O2 sat of 92 to 93%. Chest x- ray shows patchy bilateral pneumonia which can be seen in atypical viral pneumonia such as COVID. Labs and vitals reviewed. Nephrology was consulted for ESRD management. Past History Past Medical History: diabetes, ESRD, hypertension, renal failure, other (Dementia) Medications and Allergies Allergies Allergy/AdvReac Type Severity Reaction Status Date / Time celecoxib Allergy Unknown Verified 04/22/21 00:07 Sulfa (Sulfonamide AdvReac Nausea Verified 04/22/21 00:07 Antibiotics) Home Medications Medication Instructions Recorded Confirmed Last Taken Type Albuterol Mdi (or & Nicu Only) 2 puff IH QID PRN #1 inhalation 03/30/14 12/09/20 12/05/20 20:00 Rx [ProAir HFA Inhaler] Aspirin [Aspirin BABY CHEW TAB] 81 mg PO DAILY 03/30/14 02/01/21 01/30/21 08:40 History Febuxostat [Uloric] 80 mg PO DAILY 03/30/14 12/09/20 12/05/20 20:00 History Levothyroxine [Synthroid] 88 mcg PO DAILY 03/30/14 02/01/21 01/30/21 06:30 History Metoprolol [Lopressor TAB] 50 mg PO DAILY 03/30/14 02/02/21 02/01/21 10:00 History Montelukast [Singulair] 10 mg PO DAILY 03/30/14 02/02/21 02/01/21 10:00 History Quetiapine Fumarate [QUEtiapine 300 mg PO DAILY 03/30/14 02/01/21 01/30/21 21:00 History Fumarate] Rosuvastatin (Nf) [Crestor] 20 mg PO DAILY 03/30/14 02/01/21 12/05/20 20:00 History clonazePAM 2 mg PO HS 03/30/14 02/01/21 01/31/21 23:00 History sitaGLIPtin [Januvia] 50 mg PO DAILY 03/30/14 02/01/21 01/30/21 08:30 History Promethazine [Phenergan] 25 mg PO Q6H PRN 05/28/14 12/09/20 12/05/20 20:00 History Furosemide [Lasix] 40 mg PO DAILY 05/29/14 02/02/21 02/01/21 10:00 History levoFLOXacin [Levaquin] 250 mg PO QDAY #3 tablet 02/03/21 Unknown Rx Active Meds: Active Medications Acetaminophen (Acetaminophen 325 Mg Tab) 650 mg PO Q4H PRN PRN Reason: Pain MILD(1-3)/Fever >100.5/LOBATO Last Admin: 04/22/21 07:05 Dose: 650 mg Albuterol (Albuterol 2.5 Mg/3 Ml Nebu) 2.5 mg IH Q4HRT PRN PRN Reason: Shortness Of Breath Albuterol/Ipratropium (Ipratropium/Albuterol Sulfate 3 Ml Ampul.Neb) 1 ampul IH Q6HRT [facility] Last Admin: 04/22/21 08:29 Dose: 1 ampul Aspirin (Aspirin 81 Mg Tab Chew) 81 mg PO DAILY [facility] Last Admin: 04/22/21 11:34 Dose: 81 mg Atorvastatin Calcium (Atorvastatin 40 Mg Tab) 40 mg PO QHS [facility] Azithromycin (Azithromycin 250 Mg Tab) 500 mg PO QDAY [facility] Stop: 04/26/21 10:01 Clonazepam (Clonazepam 2 Mg Tab) 2 mg PO HS [facility] Dexamethasone (Dexamethasone 4 Mg Tab) 6 mg PO DAILY [facility] Stop: 05/01/21 10:01 Dextrose (Dextrose 50% In Water (25gm) 50 Ml Syringe) 50 ml IV Q30MIN PRN; Protocol PRN Reason: Hypoglycemia Dextrose (Dextrose 50% In Water (25gm) 50 Ml Syringe) 50 ml IV Q30MIN PRN; Protocol PRN Reason: Hypoglycemia Famotidine (Famotidine 10 Mg Tab) 10 mg PO BID [facility] Last Admin: 04/22/21 11:34 Dose: 10 mg Furosemide (Furosemide 40 Mg Tab) 40 mg PO DAILY [facility] Last Admin: 04/22/21 11:34 Dose: 40 mg Heparin Sodium (Porcine) (Heparin 5,000 Unit/1 Ml Vial) 5,000 unit SUB-Q Q8HR [facility] Last Admin: 04/22/21 06:36 Dose: 5,000 unit Hydralazine HCl (Hydralazine 20 Mg/1 Ml Inj) 10 mg IV Q6H PRN PRN Reason: Blood Pressure Hydromorphone HCl (Hydromorphone 1 Mg/1 Ml Inj) 0.5 mg IV Q3H PRN PRN Reason: Pain , Severe (7-10) Ceftriaxone Sodium (Rocephin/Ns 2 Gm/100 Ml) 2 gm in 100 mls @ 200 mls/hr IV Q24H [facility]; Protocol Stop: 04/26/21 08:29 Insulin Human Isoph/Insulin Regular (Insulin Nph/Regular 70/30 Inj) 5 unit SUB- Q BIDDIAB [facility] Insulin Human Lispro (Insulin Lispro 100 Unit/Ml) 0 unit SUB-Q ACHS [facility]; Protocol Last Admin: 04/22/21 11:51 Dose: 4 unit Levothyroxine Sodium (Levothyroxine 88 Mcg Tab) 88 mcg PO DAILY@0600 [facility] Last Admin: 04/22/21 06:37 Dose: 88 mcg Metoprolol Tartrate (Metoprolol Tartrate 50 Mg Tab) 50 mg PO DAILY [facility] Last Admin: 04/22/21 11:34 Dose: 50 mg Montelukast Sodium (Montelukast 10 Mg Tab) 10 mg PO DAILY [facility] Last Admin: 04/22/21 11:34 Dose: 10 mg Morphine Sulfate (Morphine 2 Mg/1 Ml Inj) 2 mg IV Q4H PRN PRN Reason: Pain, Moderate (4-6) Ondansetron HCl (Ondansetron 4 Mg/2 Ml Inj) 4 mg IV Q8H PRN PRN Reason: Nausea And Vomiting Quetiapine Fumarate (Quetiapine 100 Mg Tab) 300 mg PO DAILY [facility] Last Admin: 04/22/21 11:35 Dose: 300 mg Sodium Chloride (Sodium Chloride 0.9% 10 Ml Flush Syringe) 10 ml IV BID [facility] Last Admin: 04/22/21 11:35 Dose: 10 ml Sodium Chloride (Sodium Chloride 0.9% 10 Ml Flush Syringe) 10 ml IV PRN PRN PRN Reason: LINE FLUSH Review of Systems All systems: negative Exam - Vital Signs Vital signs: Vital Signs Temp Pulse Resp BP Pulse Ox 99.4 F 75 24 115/45 97 04/22/21 00:30 04/22/21 00:30 04/22/21 00:30 04/22/21 00:30 04/22/21 00:30 Results - Lab Results 04/22/21 00:23 04/22/21 00:23 Most recent lab results Calcium 9.3 mg/dL (8.4-10.2) 04/22/21 00:23 Assessment and Plan 1. ESRD: Patient is on maintenance hemodialysis three times a week, TTS schedule. Last outpatient hemodialysis 04/20. Hemodialysis: . 2. FEN: Monitor lytes and voluem status. 3. Acute hypoxic resp failure, POA: 05/08 Covid-19 PNA. Supplemental O2. Per protocol. Volume control thru HD. Monitor. 4. Covid PNA, POA: Decadron. Abx. Followed by ID. 5. Anemia, POA: Epogen with HD. 6. DM type 2. 7. Hypertension: Monitor BP. Adjust meds as needed. Subjective: Patient was seen and examined at the bedside. Examination: General appearance: well-developed, obese, appears stated age, not in distress HEENT: ATNC Neck: trachea midline Respiratory: faint rales heard Heart: regular, S1S2, no murmur Abdomen: soft, obese, normoactive bowel sounds, not tender Integumentary: no obvious rash Neurologic: AO, able to move extremities Ext: no edema Hemodialysis access: L arm AVF
--- NOTE | 2021-04-22 14:29 | Consultation ---
History of Present Illness - Reason for Consult Consult date: 04/22/21 COVID-19 Requesting physician: CARINA CAMPUZANO - History of Present Illness The patient is a 80-year-old female with ESRD on HD, hypertension, dementia, diabetes mellitus type 2, CAD was admitted with worsening shortness of breath and hypoxia. Patient was diagnosed with COVID-19 at [facility] recently. Upon evaluation in the ER, noted to be hypoxic on room air, also febrile. Started on nasal cannula oxygen. Infectious diseases was consulted for additional evaluation. Labs revealed normal WBC, D-dimer 3117, creatinine 9.4, procalcitonin 3.9, CRP 34.8, ferritin >2K. Review of Systems: reviewed in the chart, unable to obtain, minimize risk of transmission Past History Past Medical History: diabetes, ESRD, hypertension, renal failure, other (Dementia) Medications and Allergies Allergies Allergy/AdvReac Type Severity Reaction Status Date / Time celecoxib Allergy Unknown Verified 04/22/21 00:07 Sulfa (Sulfonamide AdvReac Nausea Verified 04/22/21 00:07 Antibiotics) Home Medications Medication Instructions Recorded Confirmed Last Taken Type Albuterol Mdi (or & Nicu Only) 2 puff IH QID PRN #1 inhalation 03/30/14 12/09/20 12/05/20 20:00 Rx [ProAir HFA Inhaler] Aspirin [Aspirin BABY CHEW TAB] 81 mg PO DAILY 03/30/14 02/01/21 01/30/21 08:40 History Febuxostat [Uloric] 80 mg PO DAILY 03/30/14 12/09/20 12/05/20 20:00 History Levothyroxine [Synthroid] 88 mcg PO DAILY 03/30/14 02/01/21 01/30/21 06:30 History Metoprolol [Lopressor TAB] 50 mg PO DAILY 03/30/14 02/02/21 02/01/21 10:00 History Montelukast [Singulair] 10 mg PO DAILY 03/30/14 02/02/21 02/01/21 10:00 History Quetiapine Fumarate [QUEtiapine 300 mg PO DAILY 03/30/14 02/01/21 01/30/21 21:00 History Fumarate] Rosuvastatin (Nf) [Crestor] 20 mg PO DAILY 03/30/14 02/01/2121 20:00 History clonazePAM 2 mg PO HS 03/30/14 02/01/21 01/31/21 23:00 History sitaGLIPtin [Januvia] 50 mg PO DAILY 03/30/14 02/01/21 01/30/21 08:30 History Promethazine [Phenergan] 25 mg PO Q6H PRN 05/28/14 12/09/20 12/05/20 20:00 History Furosemide [Lasix] 40 mg PO DAILY 05/29/14 02/02/21 02/01/21 10:00 History levoFLOXacin [Levaquin] 250 mg PO QDAY #3 tablet 02/03/21 Unknown Rx Active Meds: Active Medications Acetaminophen (Acetaminophen 325 Mg Tab) 650 mg PO Q4H PRN PRN Reason: Pain MILD(1-3)/Fever >100.5/LOBATO Last Admin: 04/22/21 07:05 Dose: 650 mg Albuterol (Albuterol 2.5 Mg/3 Ml Nebu) 2.5 mg IH Q4HRT PRN PRN Reason: Shortness Of Breath Albuterol/Ipratropium (Ipratropium/Albuterol Sulfate 3 Ml Ampul.Neb) 1 ampul IH Q6HRT [facility] Last Admin: 04/22/21 14:21 Dose: 1 ampul Aspirin (Aspirin 81 Mg Tab Chew) 81 mg PO DAILY [facility] Last Admin: 04/22/21 11:34 Dose: 81 mg Atorvastatin Calcium (Atorvastatin 40 Mg Tab) 40 mg PO QHS [facility] Azithromycin (Azithromycin 250 Mg Tab) 500 mg PO QDAY [facility] Stop: 04/26/21 10:01 Clonazepam (Clonazepam 2 Mg Tab) 2 mg PO HS [facility] Dexamethasone (Dexamethasone 4 Mg Tab) 6 mg PO DAILY [facility] Stop: 05/01/21 10:01 Dextrose (Dextrose 50% In Water (25gm) 50 Ml Syringe) 50 ml IV Q30MIN PRN; Protocol PRN Reason: Hypoglycemia Dextrose (Dextrose 50% In Water (25gm) 50 Ml Syringe) 50 ml IV Q30MIN PRN; Protocol PRN Reason: Hypoglycemia Famotidine (Famotidine 10 Mg Tab) 10 mg PO BID [facility] Last Admin: 04/22/21 11:34 Dose: 10 mg Furosemide (Furosemide 40 Mg Tab) 40 mg PO DAILY [facility] Last Admin: 04/22/21 11:34 Dose: 40 mg Heparin Sodium (Porcine) (Heparin 5,000 Unit/1 Ml Vial) 5,000 unit SUB-Q Q8HR [facility] Last Admin: 04/22/21 06:36 Dose: 5,000 unit Hydralazine HCl (Hydralazine 20 Mg/1 Ml Inj) 10 mg IV Q6H PRN PRN Reason: Blood Pressure Hydromorphone HCl (Hydromorphone 1 Mg/1 Ml Inj) 0.5 mg IV Q3H PRN PRN Reason: Pain , Severe (7-10) Ceftriaxone Sodium (Rocephin/Ns 2 Gm/100 Ml) 2 gm in 100 mls @ 200 mls/hr IV Q24H [facility]; Protocol Stop: 04/26/21 08:29 Insulin Human Isoph/Insulin Regular (Insulin Nph/Regular 70/30 Inj) 5 unit SUB- Q BIDDIAB [facility] Insulin Human Lispro (Insulin Lispro 100 Unit/Ml) 0 unit SUB-Q ACHS [facility]; Bela col Last Admin: 04/22/21 11:51 Dose: 4 unit Levothyroxine Sodium (Levothyroxine 88 Mcg Tab) 88 mcg PO DAILY@0600 [facility] Last Admin: 04/22/21 06:37 Dose: 88 mcg Metoprolol Tartrate (Metoprolol Tartrate 50 Mg Tab) 50 mg PO DAILY [facility] Last Admin: 04/22/21 11:34 Dose: 50 mg Montelukast Sodium (Montelukast 10 Mg Tab) 10 mg PO DAILY [facility] Last Admin: 04/22/21 11:34 Dose: 10 mg Morphine Sulfate (Morphine 2 Mg/1 Ml Inj) 2 mg IV Q4H PRN PRN Reason: Pain, Moderate (4-6) Ondansetron HCl (Ondansetron 4 Mg/2 Ml Inj) 4 mg IV Q8H PRN PRN Reason: Nausea And Vomiting Quetiapine Fumarate (Quetiapine 100 Mg Tab) 300 mg PO DAILY [facility] Last Admin: 04/22/21 11:35 Dose: 300 mg Sodium Chloride (Sodium Chloride 0.9% 10 Ml Flush Syringe) 10 ml IV BID [facility] Last Admin: 04/22/21 11:35 Dose: 10 ml Sodium Chloride (Sodium Chloride 0.9% 10 Ml Flush Syringe) 10 ml IV PRN PRN PRN Reason: LINE FLUSH Physical Examination - Physical Exam Narrative exam: Physical Exam (reviewed in chart to minimize risk of transmission) Constitutional: deferred Head, Ears, Nose: deferred Eyes: deferred Neck: deferred Oral: deferred Cardiovascular: deferred Respiratory: deferred GI: deferred Musculoskeletal: deferred Skin: deferred Hem/Lymphatic: deferred Psych: deferred Neurological: deferred - Constitutional Vitals: Vital Signs Temp Pulse Resp BP Pulse Ox 102.3 F H 85 23 93/54 94 04/22/21 07:14 04/22/21 14:21 04/22/21 14:21 04/22/21 14:16 04/22/21 14:16 Temperature -Last 24 Hours Temperature 102.3 F Temperature 99.4 F Results - Labs CBC & Chem 7: 04/22/21 00:23 04/22/21 00:23 Labs: Abnormal lab results 04/22/21 04/22/21 04/22/21 Range/Units 00:23 00:23 00:23 RBC 3.36 L (3.65-5.03) M/mm3 Hgb 9.8 L (10.1-14.3) gm/dl RDW 17.2 H (13.2-15.2) % Lymph % (Auto) 10.7 L (13.4-35.0) % Lymph # (Auto) 0.6 L (1.2-5.4) K/mm3 Seg Neutrophils % 83.2 H (40.0-70.0) % D-Dimer 3117.47 H (0-234) ng/mlDDU Chloride (98-107) mmol/L BUN (7-17) mg/dL Creatinine (0.6-1.2) mg/dL Glucose (65-100) mg/dL POC Glucose (70-105) mg/dL Lactic Acid (0.7-2.0) mmol/L Ferritin > 2000.0 H (10.0-200.0) ng/mL Lactate Dehydrogenase (91-180) units/L C-Reactive Protein (0.00-1.30) mg/dL Albumin (3.9-5) g/dL 04/22/21 04/22/21 04/22/21 Range/Units 00:23 03:04 05:26 RBC (3.65-5.03) M/mm3 Hgb (10.1-14.3) gm/dl RDW (13.2-15.2) % Lymph % (Auto) (13.4-35.0) % Lymph # (Auto) (1.2-5.4) K/mm3 Seg Neutrophils % (40.0-70.0) % D-Dimer (0-234) ng/mlDDU Chloride 95.0 L (98-107) mmol/L BUN 40 H (7-17) mg/dL Creatinine 9.4 H (0.6-1.2) mg/dL Glucose 108 H (65-100) mg/dL POC Glucose 66 L (70-105) mg/dL Lactic Acid 0.60 L (0.7-2.0) mmol/L Ferritin (10.0-200.0) ng/mL Lactate Dehydrogenase 493 H (91-180) units/L C-Reactive Protein 34.80 H (0.00-1.30) mg/dL Albumin 3.0 L (3.9-5) g/dL 04/22/21 04/22/21 Range/Units 08:19 11:40 RBC (3.65-5.03) M/mm3 Hgb (10.1-14.3) gm/dl RDW (13.2-15.2) % Lymph % (Auto) (13.4-35.0) % Lymph # (Auto) (1.2-5.4) K/mm3 Seg Neutrophils % (40.0-70.0) % D-Dimer (0-234) ng/mlDDU Chloride (98-107) mmol/L BUN (7-17) mg/dL Creatinine (0.6-1.2) mg/dL Glucose (65-100) mg/dL POC Glucose 116 H 288 H (70-105) mg/dL Lactic Acid (0.7-2.0) mmol/L Ferritin (10.0-200.0) ng/mL Lactate Dehydrogenase (91-180) units/L C-Reactive Protein (0.00-1.30) mg/dL Albumin (3.9-5) g/dL - Imaging and Cardiology Chest x-ray: report reviewed, image reviewed (b/l patchy airspace disease) Assessment and Plan Cultures: SARS CoV2 PCR: Positive as outpatient 04/22/2021 blood culture: In process A/P: 80-year-old female with ESRD on HD, hypertension, dementia, diabetes mellitus type 2, CAD was admitted with worsening shortness of breath and hypoxia. Patient was diagnosed with COVID-19 at [facility] recently: #Bilateral pneumonia: Secondary to COVID-19. normal WBC, D-dimer 3117, creatinine 9.4, procalcitonin 3.9, CRP 34.8, ferritin >2K #Acute hypoxic respiratory failure: Secondary to above. Requiring nasal cannula. #ESRD on HD: dose adjust abx and meds. #Diabetes #Hypertension #CAD Recs: -IV/PO Dexamethasone x 10 days -Due to ESRD, not a candidate for Remdesivir -if hypoxia worsens to requiring HFNC >30 L/min, since CRP >7.5, candidate for Actemra (depending on availability) -prophylactic anticoagulation based on d-dimer per hospital protocol -procal elevation likely from renal failure, however complete 5 days of CAP coverage -trend ferritin, d-dimer, CRP every 2-3 days Caden Rice MD, FACP, [facility] O: [phone] F: [phone]
[2021-04-22] MEDS: INSULIN NPH/REGULAR 70/30 INJ SUB-Q SCH (17:33)
[2021-04-22] MEDS: MORPHINE 2 MG/1 ML INJ IV PRN (17:34)
[2021-04-22] MEDS ORDERED: SODIUM CHLORIDE 0.9% 100 ML IV PRN (22:34)
[2021-04-22] MEDS ORDERED: HEPARIN 10,000 UNITS/10 ML VIAL IV PRN (22:34)
[2021-04-22] MEDS ORDERED: EPOETIN ALFA-EPBX 10,000 UNIT/1 ML VIAL SUB-Q PRN (22:34)
--- NOTE | 2021-04-22 22:46 | Event Note ---
Date: 04/22/21 Hemodialysis consent obtained from patient.
[2021-04-23 02:05] LABS: Calcium 9.9 mg/dL (8.4-10.2)
[2021-04-23 02:08] LABS: Basophils % (Auto) 0.2 % (0.0-1.8); Hematocrit 32.1 % (30.3-42.9); Hemoglobin 10.1 gm/dl (10.1-14.3); Lymphocytes # (Auto) 0.8 K/mm3 (1.2-5.4); Lymphocytes % (Auto) 9.5 % (13.4-35.0); Mean Corpuscular HGB Conc 32 % (30-34); Mean Corpuscular Volume 92 fl (79-97); Monocytes # (Auto) 0.5 K/mm3 (0.0-0.8); Monocytes % (Auto) 5.6 % (0.0-7.3); Platelet Count 178 K/mm3 (140-440); Red Blood Count 3.47 M/mm3 (3.65-5.03); Red Cell Distribution Width 16.9 % (13.2-15.2)
[2021-04-23 02:25] LABS: Hepatitis B Surface Antigen Non-Reactive (Negative); Hepatitis C Virus Antibody Non-Reactive (NonReactive)
[2021-04-23] MEDS ORDERED: AZITHROMYCIN/NS 500 MG/250 ML 500 MG/250 ML BAG IV SCH (05:00)
[2021-04-23] MEDS ORDERED: dexAMETHasone 4 MG/ML VIAL IV SCH (05:00)
[2021-04-23] MEDS: IPRATROPIUM/ALBUTEROL SULFATE 3 ML AMPUL.NEB IH SCH (07:14)
[2021-04-23] MEDS: INSULIN LISPRO 100 UNIT/ML SUB-Q SCH ×5 (07:56→22:46)
--- NOTE | 2021-04-23 08:29 | Progress Note ---
Assessment and Plan 1. ESRD: Patient is on maintenance hemodialysis three times a week, TTS schedule. Last outpatient hemodialysis 04/20. Hemodialysis: today. 2. FEN: Monitor lytes and voluem status. 3. Acute hypoxic resp failure, POA: 2/2 Covid-19 PNA. Supplemental O2. Per protocol. Volume control thru HD. Monitor. 4. Covid PNA, POA: Decadron. Abx. Followed by ID. 5. Anemia, POA: Epogen with HD. 6. DM type 2. 7. Hypertension: Monitor BP. Adjust meds as needed. Subjective: Patient was seen and examined at the bedside. Examination: General appearance: well-developed, obese, appears stated age, not in distress HEENT: ATNC Neck: trachea midline Respiratory: faint rales heard Heart: regular, S1S2, no murmur Abdomen: soft, obese, normoactive bowel sounds, not tender Integumentary: no obvious rash Neurologic: AO, able to move extremities Ext: no edema Hemodialysis access: L arm AVF Subjective Date of service: 04/23/21 Objective - Vital Signs Vital signs: Vital Signs - 12hr 04/22/21 04/22/21 04/22/21 20:31 20:42 20:50 Temperature Pulse Rate Respiratory Rate Blood Pressure 137/38 137/38 137/38 O2 Sat by Pulse 72 L 88 Oximetry 04/22/21 04/22/21 04/22/21 21:00 21:10 21:20 Temperature Pulse Rate Respiratory Rate Blood Pressure 137/38 137/38 137/38 O2 Sat by Pulse 78 L 88 94 Oximetry 04/22/21 04/22/21 04/22/21 21:39 21:41 23:08 Temperature 98.5 F Pulse Rate 81 Respiratory 18 Rate Blood Pressure 137/38 187/114 137/46 O2 Sat by Pulse 93 Oximetry 04/23/21 04/23/21 04/23/21 04:00 05:50 06:51 Temperature 98.2 F Pulse Rate 95 H Respiratory 18 Rate Blood Pressure 128/45 O2 Sat by Pulse 93 87 91 Oximetry - Lab 04/22/21 00:23 04/23/21 04:00 Most recent lab results Calcium 9.9 mg/dL (8.4-10.2) 04/23/21 04:00 Phosphorus 6.30 mg/dL (2.5-4.5) H 04/23/21 04:00 Magnesium 2.40 mg/dL (1.7-2.3) H 04/23/21 04:00 Medications & Allergies - Medications Allergies/Adverse Reactions: Allergies celecoxib Allergy (Verified 04/22/21 00:07) Unknown Sulfa (Sulfonamide Antibiotics) Adverse Reaction (Verified 04/22/21 00:07) Nausea Home Medications: Home Medications Medication Instructions Recorded Confirmed Last Taken Type Albuterol Mdi (or & Nicu Only) 2 puff IH QID PRN #1 inhalation 03/30/14 12/09/20 12/05/20 20:00 Rx [ProAir HFA Inhaler] Aspirin [Aspirin BABY CHEW TAB] 81 mg PO DAILY 03/30/14 02/01/21 01/30/21 08:40 History Febuxostat [Uloric] 80 mg PO DAILY 03/30/14 12/09/20 12/05/20 20:00 History Levothyroxine [Synthroid] 88 mcg PO DAILY 03/30/14 02/01/21 01/30/21 06:30 History Metoprolol [Lopressor TAB] 50 mg PO DAILY 03/30/14 02/02/21 02/01/21 10:00 History Montelukast [Singulair] 10 mg PO DAILY 03/30/14 02/02/21 02/01/21 10:00 History Quetiapine Fumarate [QUEtiapine 300 mg PO DAILY 03/30/14 02/01/21 01/30/21 21:00 History Fumarate] Rosuvastatin (Nf) [Crestor] 20 mg PO DAILY 03/30/14 02/01/21 12/05/20 20:00 History clonazePAM 2 mg PO HS 03/30/14 02/01/21 01/31/21 23:00 History sitaGLIPtin [Januvia] 50 mg PO DAILY 03/30/14 02/01/21 01/30/21 08:30 History Promethazine [Phenergan] 25 mg PO Q6H PRN 05/28/14 12/09/20 12/05/20 20:00 History Furosemide [Lasix] 40 mg PO DAILY 05/29/14 02/02/21 02/01/21 10:00 History levoFLOXacin [Levaquin] 250 mg PO QDAY #3 tablet 02/03/21 Unknown Rx Active Medications: Generic Name Dose Route Start Last Admin Trade Name Freq PRN Reason Stop Dose Admin Acetaminophen 650 mg 04/22/21 04:47 04/22/21 07:05 Acetaminophen 325 Mg Tab PO 650 mg Q4H PRN Administration Pain MILD(1-3)/Fever >100.5/LOBATO Albuterol 2.5 mg 04/22/21 04:47 Albuterol 2.5 Mg/3 Ml Nebu IH Q4HRT PRN Shortness Of Breath Aspirin 81 mg 04/22/21 10:00 04/22/21 11:34 Aspirin 81 Mg Tab Chew PO 81 mg DAILY [facility] Administration Atorvastatin Calcium 40 mg 04/22/21 22:00 Atorvastatin 40 Mg Tab PO QHS [facility] Azithromycin 500 mg 04/23/21 10:00 Azithromycin 250 Mg Tab PO 04/26/21 10:01 QDAY [facility] Clonazepam 2 mg 04/22/21 22:00 Clonazepam 2 Mg Tab PO HS [facility] Dexamethasone 6 mg 04/23/21 10:00 Dexamethasone 4 Mg Tab PO 05/01/21 10:01 DAILY [facility]UL Dextrose 50 ml 04/22/21 13:00 Dextrose 50% In Water (25gm) 50 Ml Syringe IV Q30MIN PRN Hypoglycemia Protocol Famotidine 10 mg 04/22/21 10:00 04/22/21 11:34 Famotidine 10 Mg Tab PO 10 mg BID [facility] Administration Furosemide 40 mg 04/22/21 10:00 04/22/21 11:34 Furosemide 40 Mg Tab PO 40 mg DAILY [facility] Administration Heparin Sodium (Porcine) 5,000 unit 04/22/21 06:00 04/22/21 17:33 Heparin 5,000 Unit/1 Ml Vial SUB-Q 5,000 unit Q8HR [facility] Administration Heparin Sodium (Porcine) 3,000 unit 04/22/21 22:34 Heparin 10,000 Units/10 Ml Vial IV MARYLU PRN hemodialysis Hydralazine HCl 10 mg 04/22/21 04:51 Hydralazine 20 Mg/1 Ml Inj IV Q6H PRN Blood Pressure Hydromorphone HCl 0.5 mg 04/22/21 04:47 Hydromorphone 1 Mg/1 Ml Inj IV Q3H PRN Pain , Severe (7-10) Ceftriaxone Sodium 2 gm in 100 mls @ 200 mls/hr 04/23/21 08:00 Rocephin/Ns 2 Gm/100 Ml IV 04/26/21 08:29 Q24H [facility] Protocol Sodium Chloride 100 mls @ 999 mls/hr 04/22/21 22:34 Nacl 0.9% IV MARYLU PRN Hypotension Insulin Human Isoph/Insulin Regular 5 unit 04/22/21 17:00 04/22/21 17:33 Insulin Nph/Regular 70/30 Inj SUB-Q 5 unit BIDDIAB [facility] Administration Insulin Human Lispro 0 unit 04/22/21 07:30 04/22/21 17:34 Insulin Lispro 100 Unit/Ml SUB-Q 158 unit ACHS [facility] Administration Protocol Levothyroxine Sodium 88 mcg 04/22/21 06:00 04/22/21 06:37 Levothyroxine 88 Mcg Tab PO 88 mcg DAILY@0600 [facility] Administration Metoprolol Tartrate 50 mg 04/22/21 10:00 04/22/21 11:34 Metoprolol Tartrate 50 Mg Tab PO 50 mg DAILY [facility] Administration Montelukast Sodium 10 mg 04/22/21 10:00 04/22/21 11:34 Montelukast 10 Mg Tab PO 10 mg DAILY [facility] Administration Morphine Sulfate 2 mg 04/22/21 04:47 04/22/21 17:34 Morphine 2 Mg/1 Ml Inj IV 2 mg Q4H PRN Administration Pain, Moderate (4-6) Ondansetron HCl 4 mg 04/22/21 04:47 Ondansetron 4 Mg/2 Ml Inj IV Q8H PRN Nausea And Vomiting Quetiapine Fumarate 300 mg 04/22/21 10:00 04/22/21 11:35 Quetiapine 100 Mg Tab PO 300 mg DAILY [facility] Administration Sodium Chloride 10 ml 04/22/21 10:00 04/22/21 11:35 Sodium Chloride 0.9% 10 Ml Flush Syringe IV 10 ml BID [facility] Administration Sodium Chloride 10 ml 04/22/21 04:47 Sodium Chloride 0.9% 10 Ml Flush Syringe IV PRN PRN LINE FLUSH
[2021-04-23] MEDS: cefTRIAXone/NS 2 GM/100 ML 2 GM/100 ML BAG IV SCH (09:35)
[2021-04-23] MEDS: INSULIN NPH/REGULAR 70/30 INJ SUB-Q SCH ×3 (10:13→18:14)
[2021-04-23] MEDS: FAMOTIDINE 10 MG TAB PO SCH ×3 (13:36→22:53)
[2021-04-23] MEDS: ASPIRIN 81 MG TAB CHEW PO SCH (14:37)
[2021-04-23] MEDS: AZITHROMYCIN 250 MG TAB PO SCH (14:38)
[2021-04-23] MEDS: MONTELUKAST 10 MG TAB PO SCH (14:39)
[2021-04-23] MEDS: QUEtiapine 100 MG TAB PO SCH (14:40)
--- NOTE | 2021-04-23 15:44 | Progress Note ---
Assessment and Plan Cultures: SARS CoV2 PCR: Positive as outpatient 04/22/2021 blood culture: In process A/P: 80-year-old female with ESRD on HD, hypertension, dementia, diabetes mellitus type 2, CAD was admitted with worsening shortness of breath and hypoxia. Patient was diagnosed with COVID-19 at [facility] recently: #Bilateral pneumonia: Secondary to COVID-19. normal WBC, D-dimer 3117, creatinine 9.4, procalcitonin 3.9, CRP 34.8, ferritin >2K #Acute hypoxic respiratory failure: Secondary to above. Requiring nasal cannula. #ESRD on HD: dose adjust abx and meds. #Diabetes #Hypertension #CAD Recs: -continue IV/PO Dexamethasone x 10 days -Due to ESRD, not a candidate for Remdesivir -prophylactic anticoagulation based on d-dimer per hospital protocol -procal elevation likely from renal failure, however complete 5 days of CAP coverage -trend ferritin, d-dimer, CRP every 2-3 days Caden Rice MD, FACP, [facility] O: [phone] F: [phone] Subjective Date of service: 04/23/21 Interval history: Fever yesterday morning. No fever today. Has been confused. Objective - Exam Narrative Exam: Physical Exam (reviewed in chart to minimize risk of transmission) Constitutional: deferred Head, Ears, Nose: deferred Eyes: deferred Neck: deferred Oral: deferred Cardiovascular: deferred Respiratory: deferred GI: deferred Musculoskeletal: deferred Skin: deferred Hem/Lymphatic: deferred Psych: deferred Neurological: deferred - Constitutional Vitals: Vital Signs Temp Pulse Resp BP Pulse Ox 98.2 F 95 H 18 128/45 93 04/23/21 05:50 04/23/21 05:50 04/23/21 05:50 04/23/21 05:50 04/23/21 09:56 Temperature -Last 24 Hours Temperature 98.2 F Temperature 98.5 F - Labs CBC & Chem 7: 04/22/21 00:23 04/23/21 04:00 Labs: Abnormal lab results 04/22/21 04/23/21 04/23/21 Range/Units 17:05 00:19 02:20 RBC 3.47 L (3.65-5.03) M/mm3 RDW 16.9 H (13.2-15.2) % Lymph % (Auto) 9.5 L (13.4-35.0) % Lymph # (Auto) 0.8 L (1.2-5.4) K/mm3 Seg Neutrophils % 84.7 H (40.0-70.0) % Sodium (137-145) mmol/L Chloride (98-107) mmol/L BUN (7-17) mg/dL Creatinine (0.6-1.2) mg/dL Glucose (65-100) mg/dL POC Glucose 159 H 129 H (70-105) mg/dL Phosphorus (2.5-4.5) mg/dL Magnesium (1.7-2.3) mg/dL 04/23/21 04/23/21 Range/Units 04:00 12:36 RBC (3.65-5.03) M/mm3 RDW (13.2-15.2) % Lymph % (Auto) (13.4-35.0) % Lymph # (Auto) (1.2-5.4) K/mm3 Seg Neutrophils % (40.0-70.0) % Sodium 134 L (137-145) mmol/L Chloride 90.9 L (98-107) mmol/L BUN 54 H (7-17) mg/dL Creatinine 10.7 H (0.6-1.2) mg/dL Glucose 119 H (65-100) mg/dL POC Glucose 126 H (70-105) mg/dL Phosphorus 6.30 H (2.5-4.5) mg/dL Magnesium 2.40 H (1.7-2.3) mg/dL
[2021-04-23] MEDS: HEPARIN 5,000 UNIT/1 ML VIAL SUB-Q SCH ×4 (16:20→22:56)
[2021-04-23] MEDS: DEXAMETHASONE 4 MG TAB PO SCH (17:00)
[2021-04-23] MEDS: METOPROLOL TARTRATE 50 MG TAB PO SCH (19:00)
[2021-04-23] MEDS: MORPHINE 2 MG/1 ML INJ IV PRN (19:54)
[2021-04-23] MEDS: LEVOTHYROXINE 88 MCG TAB PO SCH (22:54)
[2021-04-23] MEDS: FUROSEMIDE 40 MG TAB PO SCH (22:54)
[2021-04-24] MEDS: LEVOTHYROXINE 88 MCG TAB PO SCH (05:39)
[2021-04-24] MEDS: HEPARIN 5,000 UNIT/1 ML VIAL SUB-Q SCH ×2 (05:41→21:56)
--- NOTE | 2021-04-24 08:50 | Progress Note ---
Assessment and Plan Assessment and plan: #Acute hypoxic respiratory failure #COVID-19 infection/pneumonia -Currently on nonrebreather 15 L; per nursing patient continues to pull off facemask -Continuous pulse oximetry -Continue steroids; not candidate for remdesivir due to ESRD -Continue CAP coverage x5 days (day 2 of 5) -Infectious disease following, assistance appreciated #ESRD requiring HD -On HD TTS schedule -Nephrology following, assistance appreciated #Hypertension -Continue metoprolol at current dose -IV hydralazine as needed #Elevated D-dimer -VQ scan ordered -will trend every 3 days #Acute encephalopathy #History of CVA -Continue aspirin and Crestor -CT head on admission negative for acute findings -If encephalopathy continues to worsen, will consider Neurology consult #Hypoglycemia -Patient refusing to eat -D50 amps as needed -will consider other forms of nutrition if continues #Anemia -Likely secondary to ESRD -Epogen with HD -Transfuse for hemoglobin less than 7 Disposition Plan: Continue medical management History Interval history: Overnight patient was delirious and was wandering the halls naked. This morning patient in bed alert to person. Responds to questions with "yes" or "no". Denies pain or discomfort. Nonrebreather in place. Hospitalist Physical - Physical exam Narrative exam: GENERAL: Well-developed well-nourished. In bed, no acute distress. HEENT: NRB mask in place NECK: Supple. CHEST/LUNGS: Coarse breath sounds bilaterally HEART/CARDIOVASCULAR: RRR. No murmur, rubs or gallops appreciated. ABDOMEN: +BS. NT/ND. NEURO: Does not follow commands. EXTREMITIES: No cyanosis, clubbing or edema. PSYCH: Alert to person. - Constitutional Vitals: Temp Pulse Resp BP Pulse Ox 98.0 F 94 H 22 115/39 90 04/24/21 05:39 04/23/21 23:15 04/24/21 05:39 04/24/21 05:39 04/24/21 03:19 General appearance: Present: no acute distress, well-nourished Results - Labs CBC & Chem 7: 04/22/21 00:23 04/23/21 04:00 Labs: Laboratory Last Values WBC 8.4 K/mm3 (4.5-11.0) 04/23/21 02:20 RBC 3.47 M/mm3 (3.65-5.03) L 04/23/21 02:20 Hgb 10.1 gm/dl (10.1-14.3) 04/23/21 02:20 Hct 32.1 % (30.3-42.9) 04/23/21 02:20 MCV 92 fl (79-97) 04/23/21 02:20 MCH 29 pg (28-32) 04/23/21 02:20 MCHC 32 % (30-34) 04/23/21 02:20 RDW 16.9 % (13.2-15.2) H 04/23/21 02:20 Plt Count 178 K/mm3 (140-440) 04/23/21 02:20 Lymph % (Auto) 9.5 % (13.4-35.0) L 04/23/21 02:20 Daniels % (Auto) 5.6 % (0.0-7.3) 04/23/21 02:20 Eos % (Auto) 0.0 % (0.0-4.3) 04/23/21 02:20 Baso % (Auto) 0.2 % (0.0-1.8) 04/23/21 02:20 Lymph # (Auto) 0.8 K/mm3 (1.2-5.4) L 04/23/21 02:20 Daniels # (Auto) 0.5 K/mm3 (0.0-0.8) 04/23/21 02:20 Eos # (Auto) 0.0 K/mm3 (0.0-0.4) 04/23/21 02:20 Baso # (Auto) 0.0 K/mm3 (0.0-0.1) 04/23/21 02:20 Seg Neutrophils % 84.7 % (40.0-70.0) H 04/23/21 02:20 Seg Neutrophils # 7.1 K/mm3 (1.8-7.7) 04/23/21 02:20 D-Dimer 3117.47 ng/mlDDU (0-234) H 04/22/21 00:23 Sodium 134 mmol/L (137-145) L 04/23/21 04:00 Potassium 4.5 mmol/L (3.6-5.0) 04/23/21 04:00 Chloride 90.9 mmol/L (98-107) L 04/23/21 04:00 Carbon Dioxide 24 mmol/L (22-30) 04/23/21 04:00 Anion Gap 24 mmol/L 04/23/21 04:00 BUN 54 mg/dL (7-17) H 04/23/21 04:00 Creatinine 10.7 mg/dL (0.6-1.2) H 04/23/21 04:00 Estimated GFR 4 ml/min 04/23/21 04:00 BUN/Creatinine Ratio 5 % 04/23/21 04:00 Glucose 119 mg/dL (65-100) H 04/23/21 04:00 POC Glucose 158 mg/dL (70-105) H 04/24/21 07:48 Lactic Acid 0.60 mmol/L (0.7-2.0) L 04/22/21 05:26 Calcium 9.9 mg/dL (8.4-10.2) 04/23/21 04:00 Phosphorus 6.30 mg/dL (2.5-4.5) H 04/23/21 04:00 Magnesium 2.40 mg/dL (1.7-2.3) H 04/23/21 04:00 Ferritin > 2000.0 ng/mL (10.0-200.0) H 04/22/21 00:23 Total Bilirubin 0.40 mg/dL (0.1-1.2) 04/22/21 00:23 AST 35 units/L (5-40) 04/22/21 00:23 ALT 16 units/L (7-56) 04/22/21 00:23 Alkaline Phosphatase 49 units/L (35-129) 04/22/21 00:23 Lactate Dehydrogenase 493 units/L (91-180) H 04/22/21 00:23 C-Reactive Protein 34.80 mg/dL (0.00-1.30) H 04/22/21 00:23 Total Protein 6.3 g/dL (6.3-8.2) 04/22/21 00:23 Albumin 3.0 g/dL (3.9-5) L 04/22/21 00:23 Albumin/Globulin Ratio 0.9 % 04/22/21 00:23 Procalcitonin 3.90 ng/mL (<0.15) 04/22/21 00:23 Coronavirus (PCR) Positive (Negative) A 04/22/21 10:36 Hepatitis A IgM Ab Non-reactive (NonReactive) 04/23/21 01:13 Hep Bs Antigen Non-reactive (Negative) 04/23/21 01:13 Hep B Core IgM Ab Non-reactive (NonReactive) 04/23/21 01:13 Hepatitis C Antibody Non-reactive (NonReactive) 04/23/21 01:13 Microbiology: Microbiology 04/22/21 00:23 Peripheral/Venous Blood Culture - Preliminary NO GROWTH AFTER 48 HOURS 04/22/21 00:28 Peripheral/Venous Blood Culture - Preliminary NO GROWTH AFTER 48 HOURS Delacruz/IV: Voiding Method Incontinent Active Medications - Current Medications Current Medications: Generic Name Dose Route Start Last Admin Trade Name Freq PRN Reason Stop Dose Admin Acetaminophen 650 mg 04/22/21 04:47 04/22/21 07:05 Acetaminophen 325 Mg Tab PO 650 mg Q4H PRN Administration Pain MILD(1-3)/Fever >100.5/LOBATO Albuterol 2.5 mg 04/22/21 04:47 Albuterol 2.5 Mg/3 Ml Nebu IH Q4HRT PRN Shortness Of Breath Aspirin 81 mg 04/22/21 10:00 04/23/21 14:37 Aspirin 81 Mg Tab Chew PO 81 mg DAILY JEAN-PAUL Administration Atorvastatin Calcium 40 mg 04/22/21 22:00 04/23/21 22:53 Atorvastatin 40 Mg Tab PO 40 mg QHS JEAN-PAUL Administration Azithromycin 500 mg 04/23/21 10:00 04/23/21 14:38 Azithromycin 250 Mg Tab PO 04/26/21 10:01 500 mg QDAY JEAN-PAUL Administration Clonazepam 2 mg 04/22/21 22:00 04/23/21 22:55 Clonazepam 2 Mg Tab PO 2 mg HS JEAN-PAUL Administration Dexamethasone 6 mg 04/23/21 10:00 04/23/21 17:00 Dexamethasone 4 Mg Tab PO 05/01/21 10:01 6 mg DAILY JEAN-APUL Administration Dextrose 50 ml 04/22/21 13:00 Dextrose 50% In Water (25gm) 50 Ml Syringe IV Q30MIN PRN Hypoglycemia Protocol Famotidine 10 mg 04/22/21 10:00 04/23/21 22:53 Famotidine 10 Mg Tab PO 10 mg BID JEAN-PAUL Administration Furosemide 40 mg 04/22/21 10:00 04/23/21 22:54 Furosemide 40 Mg Tab PO Not Given DAILY JEAN-PAUL Heparin Sodium (Porcine) 5,000 unit 04/22/21 06:00 04/24/21 05:41 Heparin 5,000 Unit/1 Ml Vial SUB-Q 5,000 unit Q8HR JEAN-PAUL Administration Heparin Sodium (Porcine) 3,000 unit 04/22/21 22:34 Heparin 10,000 Units/10 Ml Vial IV MARYLU PRN hemodialysis Hydralazine HCl 10 mg 04/22/21 04:51 Hydralazine 20 Mg/1 Ml Inj IV Q6H PRN Blood Pressure Hydromorphone HCl 0.5 mg 04/22/21 04:47 Hydromorphone 1 Mg/1 Ml Inj IV Q3H PRN Pain , Severe (7-10) Ceftriaxone Sodium 2 gm in 100 mls @ 200 mls/hr 04/23/21 08:00 04/23/21 09:35 Rocephin/Ns 2 Gm/100 Ml IV 04/26/21 08:29 200 mls/hr Q24H [facility] Administration Protocol Sodium Chloride 100 mls @ 999 mls/hr 04/22/21 22:34 Nacl 0.9% IV MARYLU PRN Hypotension Insulin Human Isoph/Insulin Regular 5 unit 04/22/21 17:00 04/23/21 17:45 Insulin Nph/Regular 70/30 Inj SUB-Q Not Given BIDDIAB [facility] Insulin Human Lispro 0 unit 04/22/21 07:30 04/23/21 22:46 Insulin Lispro 100 Unit/Ml SUB-Q Not Given ACHS [facility] Protocol Levothyroxine Sodium 88 mcg 04/22/21 06:00 04/24/21 05:39 Levothyroxine 88 Mcg Tab PO 88 mcg DAILY@0600 [facility] Administration Metoprolol Tartrate 50 mg 04/22/21 10:00 04/23/21 19:00 Metoprolol Tartrate 50 Mg Tab PO 50 mg DAILY [facility] Administration Montelukast Sodium 10 mg 04/22/21 10:00 04/23/21 14:39 Montelukast 10 Mg Tab PO 10 mg DAILY JEAN-PAUL Administration Morphine Sulfate 2 mg 04/22/21 04:47 04/23/21 19:54 Morphine 2 Mg/1 Ml Inj IV 2 mg Q4H PRN Administration Pain, Moderate (4-6) Ondansetron HCl 4 mg 04/22/21 04:47 Ondansetron 4 Mg/2 Ml Inj IV Q8H PRN Nausea And Vomiting Quetiapine Fumarate 300 mg 04/22/21 10:00 04/23/21 14:40 Quetiapine 100 Mg Tab PO 300 mg DAILY JEAN-PAUL Administration Sodium Chloride 10 ml 04/22/21 10:00 04/23/21 22:55 Sodium Chloride 0.9% 10 Ml Flush Syringe IV 10 ml BID JEAN-PAUL Administration Sodium Chloride 10 ml 04/22/21 04:47 Sodium Chloride 0.9% 10 Ml Flush Syringe IV PRN PRN LINE FLUSH Nutrition/Malnutrition Assess - Dietary Evaluation Nutrition/Malnutrition Findings: Nutrition Notes Start: 04/22/21 10:50 Freq: Status: Active Protocol: Document 04/22/21 10:50 ARMANDO (Rec: 04/22/21 10:55 ARMANDO [id number]) Nutrition Notes Need for Assessment generated from: MD Order,Education Initial or Follow up Assessment Current Diagnosis CKD (stage V CKD),Coronary Artery Disease,Diabetes, Hypertension,Respiratory Failure,Hyperlipidemia Other Pertinent Diagnosis COVID-19 pneu, Dementia Current Diet Cardiac/Consistent CHO Labs/Tests BUN 40 Cr 9.4 Pertinent Medications Decadron, Lasix Height 5 ft 2 in Weight 69.853 kg [place] Body Weight (kg) 50.00 BMI 28.1 Weight Status Overweight Subjective/Other Information RD consulted for diet education; pt in ED at this time and is not appropriate for diet education. Burn Absent Trauma Absent Minimum of two criteria No #1 Nutrition Diagnosis Predicted suboptimal energy intake Etiology advanced age, dementia, medical dx As Evidenced by Signs and Symptoms pt with COVID-19 pneu Is patient on ventilator? No Is Patient Ambulatory and/or Out of Bed No REE-([place]-St. Jeor-confined to bed) 1358.880 Calculation Used for Recommendations [place] Jeor Additional Notes Pro needs >1.2g/kg: >84g/day Fluid needs 1-1.5L/day Nutrition Intervention Change Diet Order: Continue current diet order Goal #1 PO intake to meet at least 75% energy and pro needs Anticipated Discharge Needs: Heart-healthy, CHO-controlled diet Follow-Up By: 04/26/21 Additional Comments F/U: intakes, transfer to medical floor
--- NOTE | 2021-04-24 08:51 | Progress Note ---
Assessment and Plan Assessment and plan: #Acute hypoxic respiratory failure #COVID-19 infection/pneumonia -Currently on nonrebreather 15 L; per nursing patient continues to pull off facemask -Continuous pulse oximetry -Continue steroids; not candidate for remdesivir due to ESRD -Continue CAP coverage x5 days (day 3 of 5) -Infectious disease following, assistance appreciated #ESRD requiring HD -On HD TTS schedule -Nephrology following, assistance appreciated #Hypertension -Continue metoprolol at current dose -IV hydralazine as needed #Elevated D-dimer -VQ scan low probability for PE -will scan lower extremities to evaluate for DVT #Acute encephalopathy #History of CVA -Continue aspirin and Crestor -CT head on admission negative for acute findings -If encephalopathy continues to worsen, will consider Neurology consult #Hypoglycemia -Patient refusing to eat, glucose as low as 68 -D50 amps as needed -will consider other forms of nutrition if continues #Anemia -Likely secondary to ESRD -Epogen with HD -Transfuse for hemoglobin less than 7 Disposition Plan: continue medical management History Interval history: Alert to person. Per nursing patient was agitated in the morning. At time of exam patient was calm, denied pain or discomfort. No complaints at this time. Hospitalist Physical - Physical exam Narrative exam: GENERAL: Well-developed well-nourished. In bed, no acute distress. HEENT: NRB mask in place NECK: Supple. CHEST/LUNGS: Coarse breath sounds bilaterally HEART/CARDIOVASCULAR: RRR. No murmur, rubs or gallops appreciated. ABDOMEN: +BS. NT/ND. NEURO: Does not follow commands. EXTREMITIES: No cyanosis, clubbing or edema. PSYCH: Alert to person. - Constitutional Vitals: Temp Pulse Resp BP Pulse Ox 98.0 F 94 H 22 115/39 90 04/24/21 05:39 04/23/21 23:15 04/24/21 05:39 04/24/21 05:39 04/24/21 03:19 General appearance: Present: no acute distress, well-nourished Results - Labs CBC & Chem 7: 04/22/21 00:23 04/23/21 04:00 Labs: Laboratory Last Values WBC 8.4 K/mm3 (4.5-11.0) 04/23/21 02:20 RBC 3.47 M/mm3 (3.65-5.03) L 04/23/21 02:20 Hgb 10.1 gm/dl (10.1-14.3) 04/23/21 02:20 Hct 32.1 % (30.3-42.9) 04/23/21 02:20 MCV 92 fl (79-97) 04/23/21 02:20 MCH 29 pg (28-32) 04/23/21 02:20 MCHC 32 % (30-34) 04/23/21 02:20 RDW 16.9 % (13.2-15.2) H 04/23/21 02:20 Plt Count 178 K/mm3 (140-440) 04/23/21 02:20 Lymph % (Auto) 9.5 % (13.4-35.0) L 04/23/21 02:20 [place] % (Auto) 5.6 % (0.0-7.3) 04/23/21 02:20 Eos % (Auto) 0.0 % (0.0-4.3) 04/23/21 02:20 Baso % (Auto) 0.2 % (0.0-1.8) 04/23/21 02:20 Lymph # (Auto) 0.8 K/mm3 (1.2-5.4) L 04/23/21 02:20 [place] # (Auto) 0.5 K/mm3 (0.0-0.8) 04/23/21 02:20 Eos # (Auto) 0.0 K/mm3 (0.0-0.4) 04/23/21 02:20 Baso # (Auto) 0.0 K/mm3 (0.0-0.1) 04/23/21 02:20 Seg Neutrophils % 84.7 % (40.0-70.0) H 04/23/21 02:20 Seg Neutrophils # 7.1 K/mm3 (1.8-7.7) 04/23/21 02:20 D-Dimer 3117.47 ng/mlDDU (0-234) H 04/22/21 00:23 Sodium 134 mmol/L (137-145) L 04/23/21 04:00 Potassium 4.5 mmol/L (3.6-5.0) 04/23/21 04:00 Chloride 90.9 mmol/L (98-107) L 04/23/21 04:00 Carbon Dioxide 24 mmol/L (22-30) 04/23/21 04:00 Anion Gap 24 mmol/L 04/23/21 04:00 BUN 54 mg/dL (7-17) H 04/23/21 04:00 Creatinine 10.7 mg/dL (0.6-1.2) H 04/23/21 04:00 Estimated GFR 4 ml/min 04/23/21 04:00 BUN/Creatinine Ratio 5 % 04/23/21 04:00 Glucose 119 mg/dL (65-100) H 04/23/21 04:00 POC Glucose 158 mg/dL (70-105) H 04/24/21 07:48 Lactic Acid 0.60 mmol/L (0.7-2.0) L 04/22/21 05:26 Calcium 9.9 mg/dL (8.4-10.2) 04/23/21 04:00 Phosphorus 6.30 mg/dL (2.5-4.5) H 04/23/21 04:00 Magnesium 2.40 mg/dL (1.7-2.3) H 04/23/21 04:00 Ferritin > 2000.0 ng/mL (10.0-200.0) H 04/22/21 00:23 Total Bilirubin 0.40 mg/dL (0.1-1.2) 04/22/21 00:23 AST 35 units/L (5-40) 04/22/21 00:23 ALT 16 units/L (7-56) 04/22/21 00:23 Alkaline Phosphatase 49 units/L (35-129) 04/22/21 00:23 Lactate Dehydrogenase 493 units/L (91-180) H 04/22/21 00:23 C-Reactive Protein 34.80 mg/dL (0.00-1.30) H 04/22/21 00:23 Total Protein 6.3 g/dL (6.3-8.2) 04/22/21 00:23 Albumin 3.0 g/dL (3.9-5) L 04/22/21 00:23 Albumin/Globulin Ratio 0.9 % 04/22/21 00:23 Procalcitonin 3.90 ng/mL (<0.15) 04/22/21 00:23 Coronavirus (PCR) Positive (Negative) A 04/22/21 10:36 Hepatitis A IgM Ab Non-reactive (NonReactive) 04/23/21 01:13 Hep Bs Antigen Non-reactive (Negative) 04/23/21 01:13 Hep B Core IgM Ab Non-reactive (NonReactive) 04/23/21 01:13 Hepatitis C Antibody Non-reactive (NonReactive) 04/23/21 01:13 Microbiology: Microbiology 04/22/21 00:23 Peripheral/Venous Blood Culture - Preliminary NO GROWTH AFTER 48 HOURS 04/22/21 00:28 Peripheral/Venous Blood Culture - Preliminary NO GROWTH AFTER 48 HOURS Delacruz/IV: Voiding Method Incontinent Active Medications - Current Medications Current Medications: Generic Name Dose Route Start Last Admin Trade Name Freq PRN Reason Stop Dose Admin Acetaminophen 650 mg 04/22/21 04:47 04/22/21 07:05 Acetaminophen 325 Mg Tab PO 650 mg Q4H PRN Administration Pain MILD(1-3)/Fever >100.5/LOBATO Albuterol 2.5 mg 04/22/21 04:47 Albuterol 2.5 Mg/3 Ml Nebu IH Q4HRT PRN Shortness Of Breath Aspirin 81 mg 04/22/21 10:00 04/23/21 14:37 Aspirin 81 Mg Tab Chew PO 81 mg DAILY JEAN-PAUL Administration Atorvastatin Calcium 40 mg 04/22/21 22:00 04/23/21 22:53 Atorvastatin 40 Mg Tab PO 40 mg QHS JEAN-PAUL Administration Azithromycin 500 mg 04/23/21 10:00 04/23/21 14:38 Azithromycin 250 Mg Tab PO 04/26/21 10:01 500 mg QDAY JEAN-PAUL Administration Clonazepam 2 mg 04/22/21 22:00 04/23/21 22:55 Clonazepam 2 Mg Tab PO 2 mg HS JEAN-PAUL Administration Dexamethasone 6 mg 04/23/21 10:00 04/23/21 17:00 Dexamethasone 4 Mg Tab PO 05/01/21 10:01 6 mg DAILY JEAN-PAUL Administration Dextrose 50 ml 04/22/21 13:00 Dextrose 50% In Water (25gm) 50 Ml Syringe IV Q30MIN PRN Hypoglycemia Protocol Famotidine 10 mg 04/22/21 10:00 04/23/21 22:53 Famotidine 10 Mg Tab PO 10 mg BID JEAN-PAUL Administration Furosemide 40 mg 04/22/21 10:00 04/23/21 22:54 Furosemide 40 Mg Tab PO Not Given DAILY JEAN-PAUL Heparin Sodium (Porcine) 5,000 unit 04/22/21 06:00 04/24/21 05:41 Heparin 5,000 Unit/1 Ml Vial SUB-Q 5,000 unit Q8HR JEAN-PAUL Administration Heparin Sodium (Porcine) 3,000 unit 04/22/21 22:34 Heparin 10,000 Units/10 Ml Vial IV MARYLU PRN hemodialysis Hydralazine HCl 10 mg 04/22/21 04:51 Hydralazine 20 Mg/1 Ml Inj IV Q6H PRN Blood Pressure Hydromorphone HCl 0.5 mg 04/22/21 04:47 Hydromorphone 1 Mg/1 Ml Inj IV Q3H PRN Pain , Severe (7-10) Ceftriaxone Sodium 2 gm in 100 mls @ 200 mls/hr 04/23/21 08:00 04/23/21 09:35 Rocephin/Ns 2 Gm/100 Ml IV 04/26/21 08:29 200 mls/hr Q24H [facility] Administration Protocol Sodium Chloride 100 mls @ 999 mls/hr 04/22/21 22:34 Nacl 0.9% IV MARYLU PRN Hypotension Insulin Human Isoph/Insulin Regular 5 unit 04/22/21 17:00 04/23/21 17:45 Insulin Nph/Regular 70/30 Inj SUB-Q Not Given BIDDIAB [facility] Insulin Human Lispro 0 unit 04/22/21 07:30 04/23/21 22:46 Insulin Lispro 100 Unit/Ml SUB-Q Not Given ACHS [facility] Protocol Levothyroxine Sodium 88 mcg 04/22/21 06:00 04/24/21 05:39 Levothyroxine 88 Mcg Tab PO 88 mcg DAILY@0600 [facility] Administration Metoprolol Tartrate 50 mg 04/22/21 10:00 04/23/21 19:00 Metoprolol Tartrate 50 Mg Tab PO 50 mg DAILY [facility] Administration Montelukast Sodium 10 mg 04/22/21 10:00 04/23/21 14:39 Montelukast 10 Mg Tab PO 10 mg DAILY [facility] Administration Morphine Sulfate 2 mg 04/22/21 04:47 04/23/21 19:54 Morphine 2 Mg/1 Ml Inj IV 2 mg Q4H PRN Administration Pain, Moderate (4-6) Ondansetron HCl 4 mg 04/22/21 04:47 Ondansetron 4 Mg/2 Ml Inj IV Q8H PRN Nausea And Vomiting Quetiapine Fumarate 300 mg 04/22/21 10:00 04/23/21 14:40 Quetiapine 100 Mg Tab PO 300 mg DAILY JEAN-PAUL Administration Sodium Chloride 10 ml 04/22/21 10:00 04/23/21 22:55 Sodium Chloride 0.9% 10 Ml Flush Syringe IV 10 ml BID JEAN-PAUL Administration Sodium Chloride 10 ml 04/22/21 04:47 Sodium Chloride 0.9% 10 Ml Flush Syringe IV PRN PRN LINE FLUSH Nutrition/Malnutrition Assess - Dietary Evaluation Nutrition/Malnutrition Findings: Nutrition Notes Start: 04/22/21 10:50 Freq: Status: Active Protocol: Document 04/22/21 10:50 ARMANDO (Rec: 04/22/21 10:55 ARMANDO [id number]) Nutrition Notes Need for Assessment generated from: MD Order,Education Initial or Follow up Assessment Current Diagnosis CKD (stage V CKD),Coronary Artery Disease,Diabetes, Hypertension,Respiratory Failure,Hyperlipidemia Other Pertinent Diagnosis COVID-19 pneu, Dementia Current Diet Cardiac/Consistent CHO Labs/Tests BUN 40 Cr 9.4 Pertinent Medications Decadron, Lasix Height 5 ft 2 in Weight 69.853 kg [place] Body Weight (kg) 50.00 BMI 28.1 Weight Status Overweight Subjective/Other Information RD consulted for diet education; pt in ED at this time and is not appropriate for diet education. Burn Absent Trauma Absent Minimum of two criteria No #1 Nutrition Diagnosis Predicted suboptimal energy intake Etiology advanced age, dementia, medical dx As Evidenced by Signs and Symptoms pt with COVID-19 pneu Is patient on ventilator? No Is Patient Ambulatory and/or Out of Bed No REE-([place]-St. Jeor-confined to bed) 1358.880 Calculation Used for Recommendations [place] Jeor Additional Notes Pro needs >1.2g/kg: >84g/day Fluid needs 1-1.5L/day Nutrition Intervention Change Diet Order: Continue current diet order Goal #1 PO intake to meet at least 75% energy and pro needs Anticipated Discharge Needs: Heart-healthy, CHO-controlled diet Follow-Up By: 04/26/21 Additional Comments F/U: intakes, transfer to medical floor
[2021-04-24] MEDS: FAMOTIDINE 10 MG TAB PO SCH ×2 (10:01→21:55)
[2021-04-24] MEDS: INSULIN NPH/REGULAR 70/30 INJ SUB-Q SCH (10:01)
[2021-04-24] MEDS: AZITHROMYCIN 250 MG TAB PO SCH (10:02)
[2021-04-24] MEDS: DEXAMETHASONE 4 MG TAB PO SCH (10:02)
[2021-04-24] MEDS: FUROSEMIDE 40 MG TAB PO SCH (10:03)
[2021-04-24] MEDS: INSULIN LISPRO 100 UNIT/ML SUB-Q SCH ×2 (10:10→22:48)
[2021-04-24] MEDS: ASPIRIN 81 MG TAB CHEW PO SCH (10:22)
[2021-04-24] MEDS: METOPROLOL TARTRATE 50 MG TAB PO SCH (10:22)
[2021-04-24] MEDS: MONTELUKAST 10 MG TAB PO SCH (10:23)
[2021-04-24] MEDS: QUEtiapine 100 MG TAB PO SCH (10:23)
[2021-04-24] MEDS: cefTRIAXone/NS 2 GM/100 ML 2 GM/100 ML BAG IV SCH (10:39)
--- NOTE | 2021-04-24 12:52 | XRay Report ---
CHEST 1 VIEW 04/24/2021 11:42 AM INDICATION / CLINICAL INFORMATION: SOB /EVALUATE FOR PE. COMPARISON: 04/22/2019 FINDINGS: SUPPORT DEVICES: None. HEART / MEDIASTINUM: No significant abnormality. LUNGS / PLEURA: Diffuse bilateral pulmonary opacities of increased since prior examination. No pneumo thorax. ADDITIONAL FINDINGS: No significant additional findings. IMPRESSION: 1. Diffuse bilateral pulmonary opacities of increased since prior exam Signer Name: Mata Lazo MD Signed: 04/24/2021 12:47 PM Workstation Name: [id number]
--- NOTE | 2021-04-24 13:33 | Nuclear Medicine Report ---
NUCLEAR MEDICINE PERFUSION SCAN INDICATION: hypoxia CORRELATION: AP chest performed earlier today RADIOPHARMACEUTICAL: Perfusion: 5.2 mCi Tc-99m MAA given IV FINDINGS: Perfusion images show symmetric and uniform radiotracer distribution throughout bilateral lung zones with no evidence of unmatched segmental perfusion defects. Normal cardiac silhouette. IMPRESSION: Low probability perfusion scan for pulmonary embolism. Signer Name: Isiah Feng Jr, MD Signed: 04/24/2021 1:29 PM Workstation Name: [id number]
--- NOTE | 2021-04-24 14:15 | Progress Note ---
Assessment and Plan Cultures: SARS CoV2 PCR: Positive as outpatient 04/22/2021 blood culture: In process A/P: 80-year-old female with ESRD on HD, hypertension, dementia, diabetes mellitus type 2, CAD was admitted with worsening shortness of breath and hypoxia. Patient was diagnosed with COVID-19 at [facility] recently: #Bilateral pneumonia: Secondary to COVID-19. normal WBC, D-dimer 3117, creatinine 9.4, procalcitonin 3.9, CRP 34.8, ferritin >2K #Acute hypoxic respiratory failure: Secondary to above. Requiring nasal cannula. #ESRD on HD: dose adjust abx and meds. #Diabetes #Hypertension #CAD Recs: -continue IV/PO Dexamethasone x 10 days -Due to ESRD, not a candidate for Remdesivir -prophylactic anticoagulation based on d-dimer per hospital protocol -procal elevation likely from renal failure, however complete 5 days of CAP coverage -monitor ferritin, d-dimer, CRP every 2-3 days Caden Rice MD, FACP, [facility] O: [phone] F: [phone] Subjective Date of service: 04/24/21 Interval history: No fever. Worsened to NRB. Objective - Exam Narrative Exam: Physical Exam (reviewed in chart to minimize risk of transmission) Constitutional: deferred Head, Ears, Nose: deferred Eyes: deferred Neck: deferred Oral: deferred Cardiovascular: deferred Respiratory: deferred GI: deferred Musculoskeletal: deferred Skin: deferred Hem/Lymphatic: deferred Psych: deferred Neurological: deferred - Constitutional Vitals: Vital Signs Temp Pulse Resp BP Pulse Ox 97.8 F 72 20 95/69 99 04/24/21 13:03 04/24/21 13:03 04/24/21 13:03 04/24/21 13:03 04/24/21 13:03 Temperature -Last 24 Hours Temperature 97.8 F Temperature 98.0 F Temperature 99.5 F Temperature 98.9 F Temperature 98.2 F Temperature 98.5 F - Labs CBC & Chem 7: 04/22/21 00:23 04/23/21 04:00 Labs: Abnormal lab results 04/23/21 04/23/21 04/24/21 Range/Units 15:52 23:22 07:48 POC Glucose 69 L 147 H 158 H (70-105) mg/dL
--- NOTE | 2021-04-24 16:37 | Progress Note ---
Assessment and Plan 1. ESRD: Patient is on maintenance hemodialysis three times a week, TTS schedule. Last outpatient hemodialysis 04/20. Hemodialysis: 04/23. 2. FEN: Monitor lytes and voluem status. 3. Acute hypoxic resp failure, POA: 2/2 Covid-19 PNA. Supplemental O2. Per protocol. Volume control thru HD. Monitor. 4. Covid PNA, POA: Decadron. Abx. Followed by ID. 5. Anemia, POA: Epogen with HD. 6. DM type 2. 7. Hypertension: Monitor BP. Adjust meds as needed. Subjective: Patient was seen and examined at the bedside. Examination: General appearance: well-developed, obese, appears stated age, not in distress, on NRB HEENT: ATNC Neck: trachea midline Respiratory: faint rales heard Heart: regular, S1S2, no murmur Abdomen: soft, obese, normoactive bowel sounds, not tender Integumentary: no obvious rash Neurologic: sleeping, arousable Ext: no edema Hemodialysis access: L arm AVF Subjective Date of service: 04/24/21 Objective - Vital Signs Vital signs: Vital Signs - 12hr 04/24/21 04/24/21 04/24/21 05:39 10:22 13:03 Temperature 98.0 F 97.8 F Pulse Rate 63 72 Respiratory 22 20 Rate Blood Pressure 115/39 139/49 95/69 O2 Sat by Pulse 99 Oximetry - Lab 04/22/21 00:23 04/23/21 04:00 Most recent lab results Calcium 9.9 mg/dL (8.4-10.2) 04/23/21 04:00 Phosphorus 6.30 mg/dL (2.5-4.5) H 04/23/21 04:00 Magnesium 2.40 mg/dL (1.7-2.3) H 04/23/21 04:00 Medications & Allergies - Medications Allergies/Adverse Reactions: Allergies celecoxib Allergy (Verified 04/22/21 00:07) Unknown Sulfa (Sulfonamide Antibiotics) Adverse Reaction (Verified 04/22/21 00:07) Nausea Home Medications: Home Medications Medication Instructions Recorded Confirmed Last Taken Type Albuterol Mdi (or & Nicu Only) 2 puff IH QID PRN #1 inhalation 03/30/14 12/09/20 12/05/20 20:00 Rx [ProAir HFA Inhaler] Aspirin [Aspirin BABY CHEW TAB] 81 mg PO DAILY 03/30/14 02/01/21 01/30/21 08:40 History Febuxostat [Uloric] 80 mg PO DAILY 03/30/14 12/09/20 12/05/20 20:00 History Levothyroxine [Synthroid] 88 mcg PO DAILY 03/30/14 02/01/21 01/30/21 06:30 History Metoprolol [Lopressor TAB] 50 mg PO DAILY 03/30/14 02/02/21 02/01/21 10:00 History Montelukast [Singulair] 10 mg PO DAILY 03/30/14 02/02/21 02/01/21 10:00 History Quetiapine Fumarate [QUEtiapine 300 mg PO DAILY 03/30/14 02/01/21 01/30/21 21:00 History Fumarate] Rosuvastatin (Nf) [Crestor] 20 mg PO DAILY 03/30/14 02/01/21 12/05/20 20:00 History clonazePAM 2 mg PO HS 03/30/14 02/01/21 01/31/21 23:00 History sitaGLIPtin [Januvia] 50 mg PO DAILY 03/30/14 02/01/21 01/30/21 08:30 History Promethazine [Phenergan] 25 mg PO Q6H PRN 05/28/14 12/09/20 12/05/20 20:00 History Furosemide [Lasix] 40 mg PO DAILY 05/29/14 02/02/21 02/01/21 10:00 History levoFLOXacin [Levaquin] 250 mg PO QDAY #3 tablet 02/03/21 Unknown Rx Active Medications: Generic Name Dose Route Start Last Admin Trade Name Freq PRN Reason Stop Dose Admin Acetaminophen 650 mg 04/22/21 04:47 04/22/21 07:05 Acetaminophen 325 Mg Tab PO 650 mg Q4H PRN Administration Pain MILD(1-3)/Fever >100.5/LOBATO Albuterol 2.5 mg 04/22/21 04:47 Albuterol 2.5 Mg/3 Ml Nebu IH Q4HRT PRN Shortness Of Breath Aspirin 81 mg 04/22/21 10:00 04/24/21 10:22 Aspirin 81 Mg Tab Chew PO 81 mg DAILY JEAN-PAUL Administration Atorvastatin Calcium 40 mg 04/22/21 22:00 04/23/21 22:53 Atorvastatin 40 Mg Tab PO 40 mg QHS JEAN-PAUL Administration Azithromycin 500 mg 04/23/21 10:00 04/24/21 10:02 Azithromycin 250 Mg Tab PO 04/26/21 10:01 500 mg QDAY JEAN-PAUL Administration Clonazepam 2 mg 04/22/21 22:00 04/23/21 22:55 Clonazepam 2 Mg Tab PO 2 mg HS JEAN-PAUL Administration Dexamethasone 6 mg 04/23/21 10:00 04/24/21 10:02 Dexamethasone 4 Mg Tab PO 05/01/21 10:01 6 mg DAILY JEAN-PAUL Administration Dextrose 50 ml 04/22/21 13:00 Dextrose 50% In Water (25gm) 50 Ml Syringe IV Q30MIN PRN Hypoglycemia Protocol Famotidine 10 mg 04/22/21 10:00 04/24/21 10:01 Famotidine 10 Mg Tab PO 10 mg BID JEAN-PAUL Administration Furosemide 40 mg 04/22/21 10:00 04/24/21 10:03 Furosemide 40 Mg Tab PO 40 mg DAILY JEAN-PAUL Administration Heparin Sodium (Porcine) 5,000 unit 04/22/21 06:00 04/24/21 05:41 Heparin 5,000 Unit/1 Ml Vial SUB-Q 5,000 unit Q8HR JEAN-PAUL Administration Heparin Sodium (Porcine) 3,000 unit 04/22/21 22:34 Heparin 10,000 Units/10 Ml Vial IV MARYLU PRN hemodialysis Hydralazine HCl 10 mg 04/22/21 04:51 Hydralazine 20 Mg/1 Ml Inj IV Q6H PRN Blood Pressure Hydromorphone HCl 0.5 mg 04/22/21 04:47 Hydromorphone 1 Mg/1 Ml Inj IV Q3H PRN Pain , Severe (7-10) Ceftriaxone Sodium 2 gm in 100 mls @ 200 mls/hr 04/23/21 08:00 04/24/21 10:39 Rocephin/Ns 2 Gm/100 Ml IV 04/26/21 08:29 200 mls/hr Q24H JEAN-PAUL Administration Protocol Sodium Chloride 100 mls @ 999 mls/hr 04/22/21 22:34 Nacl 0.9% IV MARYLU PRN Hypotension Insulin Human Isoph/Insulin Regular 5 unit 04/22/21 17:00 04/24/21 10:01 Insulin Nph/Regular 70/30 Inj SUB-Q 5 unit BIDDIAB JEAN-PAUL Administration Insulin Human Lispro 0 unit 04/22/21 07:30 04/24/21 10:10 Insulin Lispro 100 Unit/Ml SUB-Q 2 unit ACHS JEAN-PAUL Administration Protocol Levothyroxine Sodium 88 mcg 04/22/21 06:00 04/24/21 05:39 Levothyroxine 88 Mcg Tab PO 88 mcg DAILY@0600 JEAN-PAUL Administration Metoprolol Tartrate 50 mg 04/22/21 10:00 04/24/21 10:22 Metoprolol Tartrate 50 Mg Tab PO 50 mg DAILY JEAN-PAUL Administration Montelukast Sodium 10 mg 04/22/21 10:00 04/24/21 10:23 Montelukast 10 Mg Tab PO 10 mg DAILY JEAN-PAUL Administration Morphine Sulfate 2 mg 04/22/21 04:47 04/23/21 19:54 Morphine 2 Mg/1 Ml Inj IV 2 mg Q4H PRN Administration Pain, Moderate (4-6) Ondansetron HCl 4 mg 04/22/21 04:47 Ondansetron 4 Mg/2 Ml Inj IV Q8H PRN Nausea And Vomiting Quetiapine Fumarate 300 mg 04/22/21 10:00 04/24/21 10:23 Quetiapine 100 Mg Tab PO 300 mg DAILY JEAN-PAUL Administration Sodium Chloride 10 ml 04/22/21 10:00 04/24/21 10:41 Sodium Chloride 0.9% 10 Ml Flush Syringe IV 10 ml BID JEAN-PAUL Administration Sodium Chloride 10 ml 04/22/21 04:47 Sodium Chloride 0.9% 10 Ml Flush Syringe IV PRN PRN LINE FLUSH
[2021-04-25] MEDS: LEVOTHYROXINE 88 MCG TAB PO SCH (05:59)
[2021-04-25] MEDS: HEPARIN 5,000 UNIT/1 ML VIAL SUB-Q SCH ×3 (06:00→22:06)
[2021-04-25] MEDS: INSULIN LISPRO 100 UNIT/ML SUB-Q SCH ×4 (08:07→23:00)
--- NOTE | 2021-04-25 08:50 | Progress Note ---
Assessment and Plan Assessment and plan: #Acute hypoxic respiratory failure-improving #COVID-19 infection/pneumonia -Currently on 5 L, will wean as tolerated -Continuous pulse oximetry -Continue steroids; not candidate for remdesivir due to ESRD -Continue CAP coverage x5 days (day 4 of 5) -Infectious disease following, assistance appreciated #ESRD requiring HD -On HD TTS schedule -Nephrology following, assistance appreciated #Hypertension -Continue metoprolol at current dose -IV hydralazine as needed #Elevated D-dimer -VQ scan low probability for PE -will trend every 3 days #Acute encephalopathy #History of CVA -Continue aspirin and Crestor -CT head on admission negative for acute findings -If encephalopathy continues to worsen, will consider Neurology consult #Hypoglycemia -Patient refusing to eat; speech therapy evaluation ordered -Started D5 normal saline -will consider other forms of nutrition if continues #Anemia -Likely secondary to ESRD -Epogen with HD -Transfuse for hemoglobin less than 7 Disposition Plan: Continue medical management History Interval history: No events overnight. Patient continues to be confused and is refusing food and medications. Hospitalist Physical - Physical exam Narrative exam: GENERAL: Well-developed well-nourished. In bed, no acute distress. HEENT: Nasal cannula at 5 L/min NECK: Supple. CHEST/LUNGS: Coarse breath sounds bilaterally HEART/CARDIOVASCULAR: RRR. No murmur, rubs or gallops appreciated. ABDOMEN: +BS. NT/ND. NEURO: Does not follow commands. EXTREMITIES: No cyanosis, clubbing or edema. PSYCH: Alert to person. - Constitutional Vitals: Temp Pulse Resp BP Pulse Ox 97.8 F 90 20 152/70 96 04/25/21 04:00 04/25/21 04:00 04/25/21 04:00 04/25/21 04:00 04/25/21 04:00 General appearance: Present: no acute distress, well-nourished Results - Labs CBC & Chem 7: 04/22/21 00:23 04/23/21 04:00 Labs: Laboratory Last Values WBC 8.4 K/mm3 (4.5-11.0) 04/23/21 02:20 RBC 3.47 M/mm3 (3.65-5.03) L 04/23/21 02:20 Hgb 10.1 gm/dl (10.1-14.3) 04/23/21 02:20 Hct 32.1 % (30.3-42.9) 04/23/21 02:20 MCV 92 fl (79-97) 04/23/21 02:20 MCH 29 pg (28-32) 04/23/21 02:20 MCHC 32 % (30-34) 04/23/21 02:20 RDW 16.9 % (13.2-15.2) H 04/23/21 02:20 Plt Count 178 K/mm3 (140-440) 04/23/21 02:20 Lymph % (Auto) 9.5 % (13.4-35.0) L 04/23/21 02:20 Webb % (Auto) 5.6 % (0.0-7.3) 04/23/21 02:20 Eos % (Auto) 0.0 % (0.0-4.3) 04/23/21 02:20 Baso % (Auto) 0.2 % (0.0-1.8) 04/23/21 02:20 Lymph # (Auto) 0.8 K/mm3 (1.2-5.4) L 04/23/21 02:20 Webb # (Auto) 0.5 K/mm3 (0.0-0.8) 04/23/21 02:20 Eos # (Auto) 0.0 K/mm3 (0.0-0.4) 04/23/21 02:20 Baso # (Auto) 0.0 K/mm3 (0.0-0.1) 04/23/21 02:20 Seg Neutrophils % 84.7 % (40.0-70.0) H 04/23/21 02:20 Seg Neutrophils # 7.1 K/mm3 (1.8-7.7) 04/23/21 02:20 D-Dimer 3117.47 ng/mlDDU (0-234) H 04/22/21 00:23 Sodium 134 mmol/L (137-145) L 04/23/21 04:00 Potassium 4.5 mmol/L (3.6-5.0) 04/23/21 04:00 Chloride 90.9 mmol/L (98-107) L 04/23/21 04:00 Carbon Dioxide 24 mmol/L (22-30) 04/23/21 04:00 Anion Gap 24 mmol/L 04/23/21 04:00 BUN 54 mg/dL (7-17) H 04/23/21 04:00 Creatinine 10.7 mg/dL (0.6-1.2) H 04/23/21 04:00 Estimated GFR 4 ml/min 04/23/21 04:00 BUN/Creatinine Ratio 5 % 04/23/21 04:00 Glucose 119 mg/dL (65-100) H 04/23/21 04:00 POC Glucose 129 mg/dL (70-105) H 04/25/21 05:53 Lactic Acid 0.60 mmol/L (0.7-2.0) L 04/22/21 05:26 Calcium 9.9 mg/dL (8.4-10.2) 04/23/21 04:00 Phosphorus 6.30 mg/dL (2.5-4.5) H 04/23/21 04:00 Magnesium 2.40 mg/dL (1.7-2.3) H 04/23/21 04:00 Ferritin > 2000.0 ng/mL (10.0-200.0) H 04/22/21 00:23 Total Bilirubin 0.40 mg/dL (0.1-1.2) 04/22/21 00:23 AST 35 units/L (5-40) 04/22/21 00:23 ALT 16 units/L (7-56) 04/22/21 00:23 Alkaline Phosphatase 49 units/L (35-129) 04/22/21 00:23 Lactate Dehydrogenase 493 units/L (91-180) H 04/22/21 00:23 C-Reactive Protein 34.80 mg/dL (0.00-1.30) H 04/22/21 00:23 Total Protein 6.3 g/dL (6.3-8.2) 04/22/21 00:23 Albumin 3.0 g/dL (3.9-5) L 04/22/21 00:23 Albumin/Globulin Ratio 0.9 % 04/22/21 00:23 Procalcitonin 3.90 ng/mL (<0.15) 04/22/21 00:23 Coronavirus (PCR) Positive (Negative) A 04/22/21 10:36 Hepatitis A IgM Ab Non-reactive (NonReactive) 01/18/22 01:13 Hep Bs Antigen Non-reactive (Negative) 04/23/21 01:13 Hep B Core IgM Ab Non-reactive (NonReactive) 04/23/21 01:13 Hepatitis C Antibody Non-reactive (NonReactive) 04/23/21 01:13 Microbiology: Microbiology 04/22/21 00:23 Peripheral/Venous Blood Culture - Preliminary NO GROWTH AFTER 72 HOURS 04/22/21 00:28 Peripheral/Venous Blood Culture - Preliminary NO GROWTH AFTER 72 HOURS Delacruz/IV: Voiding Method Incontinent Active Medications - Current Medications Current Medications: Generic Name Dose Route Start Last Admin Trade Name Freq PRN Reason Stop Dose Admin Acetaminophen 650 mg 04/22/21 04:47 04/22/21 07:05 Acetaminophen 325 Mg Tab PO 650 mg Q4H PRN Administration Pain MILD(1-3)/Fever >100.5/LOBATO Albuterol 2.5 mg 04/22/21 04:47 Albuterol 2.5 Mg/3 Ml Nebu IH Q4HRT PRN Shortness Of Breath Aspirin 81 mg 04/22/21 10:00 04/24/21 10:22 Aspirin 81 Mg Tab Chew PO 81 mg DAILY JEAN-PAUL Administration Atorvastatin Calcium 40 mg 04/22/21 22:00 04/24/21 22:47 Atorvastatin 40 Mg Tab PO 40 mg QHS JEAN-PAUL Administration Azithromycin 500 mg 04/23/21 10:00 04/24/21 10:02 Azithromycin 250 Mg Tab PO 04/26/21 10:01 500 mg QDAY JEAN-PAUL Administration Clonazepam 2 mg 04/22/21 22:00 04/24/21 21:55 Clonazepam 2 Mg Tab PO 2 mg HS JEAN-PAUL Administration Dexamethasone 6 mg 04/23/21 10:00 04/24/21 10:02 Dexamethasone 4 Mg Tab PO 05/01/21 10:01 6 mg DAILY JEAN-PAUL Administration Dextrose 50 ml 04/22/21 13:00 04/24/21 17:06 Dextrose 50% In Water (25gm) 50 Ml Syringe IV 50 ml Q30MIN PRN Administration Hypoglycemia Protocol Famotidine 10 mg 04/22/21 10:00 04/24/21 21:55 Famotidine 10 Mg Tab PO 10 mg BID JEAN-PAUL Administration Furosemide 40 mg 04/22/21 10:00 04/24/21 10:03 Furosemide 40 Mg Tab PO 40 mg DAILY JEAN-PAUL Administration Heparin Sodium (Porcine) 5,000 unit 04/22/21 06:00 04/25/21 06:00 Heparin 5,000 Unit/1 Ml Vial SUB-Q 5,000 unit Q8HR JEAN-PAUL Administration Heparin Sodium (Porcine) 3,000 unit 04/22/21 22:34 Heparin 10,000 Units/10 Ml Vial IV MARYLU PRN hemodialysis Hydralazine HCl 10 mg 04/22/21 04:51 Hydralazine 20 Mg/1 Ml Inj IV Q6H PRN Blood Pressure Hydromorphone HCl 0.5 mg 04/22/21 04:47 Hydromorphone 1 Mg/1 Ml Inj IV Q3H PRN Pain , Severe (7-10) Ceftriaxone Sodium 2 gm in 100 mls @ 200 mls/hr 04/23/21 08:00 04/24/21 10:39 Rocephin/Ns 2 Gm/100 Ml IV 04/26/21 08:29 200 mls/hr Q24H JEAN-PAUL Administration Protocol Sodium Chloride 100 mls @ 999 mls/hr 04/22/21 22:34 Nacl 0.9% IV MARYLU PRN Hypotension Insulin Human Isoph/Insulin Regular 5 unit 04/22/21 17:00 04/24/21 10:01 Insulin Nph/Regular 70/30 Inj SUB-Q 5 unit BIDDIAB [facility] Administration Insulin Human Lispro 0 unit 04/22/21 07:30 04/24/21 22:48 Insulin Lispro 100 Unit/Ml SUB-Q Not Given ACHS [facility] Protocol Levothyroxine Sodium 88 mcg 04/22/21 06:00 04/25/21 05:59 Levothyroxine 88 Mcg Tab PO 88 mcg DAILY@0600 JEAN-PAUL Administration Metoprolol Tartrate 50 mg 04/22/21 10:00 04/24/21 10:22 Metoprolol Tartrate 50 Mg Tab PO 50 mg DAILY [facility] Administration Montelukast Sodium 10 mg 04/22/21 10:00 04/24/21 10:23 Montelukast 10 Mg Tab PO 10 mg DAILY JEAN-PAUL Administration Morphine Sulfate 2 mg 04/22/21 04:47 04/23/21 19:54 Morphine 2 Mg/1 Ml Inj IV 2 mg Q4H PRN Administration Pain, Moderate (4-6) Ondansetron HCl 4 mg 04/22/21 04:47 Ondansetron 4 Mg/2 Ml Inj IV Q8H PRN Nausea And Vomiting Quetiapine Fumarate 300 mg 04/22/21 10:00 04/24/21 10:23 Quetiapine 100 Mg Tab PO 300 mg DAILY JEAN-PAUL Administration Sodium Chloride 10 ml 04/22/21 10:00 04/24/21 22:47 Sodium Chloride 0.9% 10 Ml Flush Syringe IV 10 ml BID JEAN-PAUL Administration Sodium Chloride 10 ml 04/22/21 04:47 Sodium Chloride 0.9% 10 Ml Flush Syringe IV PRN PRN LINE FLUSH Nutrition/Malnutrition Assess - Dietary Evaluation Nutrition/Malnutrition Findings: Nutrition Notes Start: 04/22/21 10:50 Freq: Status: Active Protocol: Document 04/22/21 10:50 ARMANDO (Rec: 04/22/21 10:55 MTAAMIR [id number]) Nutrition Notes Need for Assessment generated from: MD Order,Education Initial or Follow up Assessment Current Diagnosis CKD (stage V CKD),Coronary Artery Disease,Diabetes, Hypertension,Respiratory Failure,Hyperlipidemia Other Pertinent Diagnosis COVID-19 pneu, Dementia Current Diet Cardiac/Consistent CHO Labs/Tests BUN 40 Cr 9.4 Pertinent Medications Decadron, Lasix Height 5 ft 2 in Weight 69.853 kg Braman Body Weight (kg) 50.00 BMI 28.1 Weight Status Overweight Subjective/Other Information RD consulted for diet education; pt in ED at this time and is not appropriate for diet education. Burn Absent Trauma Absent Minimum of two criteria No #1 Nutrition Diagnosis Predicted suboptimal energy intake Etiology advanced age, dementia, medical dx As Evidenced by Signs and Symptoms pt with COVID-19 pneu Is patient on ventilator? No Is Patient Ambulatory and/or Out of Bed No REE-([facility] [place]-confined to bed) [phone] Calculation Used for Recommendations [facility] Additional Notes Pro needs >1.2g/kg: >84g/day Fluid needs 1-1.5L/day Nutrition Intervention Change Diet Order: Continue current diet order Goal #1 PO intake to meet at least 75% energy and pro needs Anticipated Discharge Needs: Heart-healthy, CHO-controlled diet Follow-Up By: 04/26/21 Additional Comments F/U: intakes, transfer to medical floor
--- NOTE | 2021-04-25 08:54 | Progress Note ---
Assessment and Plan 1. ESRD: Patient is on maintenance hemodialysis three times a week, TTS schedule. Last outpatient hemodialysis 04/20. Hemodialysis: 04/23. HD today. 2. FEN: Monitor lytes and volume status. 3. Acute hypoxic resp failure, POA: 2/2 Covid-19 PNA. Supplemental O2. Per protocol. Volume control thru HD. Monitor. 4. Covid PNA, POA: Decadron. Abx. Followed by ID. 5. Anemia, POA: Epogen with HD. 6. DM type 2. 7. Hypertension: Monitor BP. Adjust meds as needed. Subjective: Patient was seen and examined at the bedside. Examination: General appearance: well-developed, obese, appears stated age, not in distress HEENT: ATNC Neck: trachea midline Respiratory: faint rales heard Heart: regular, S1S2, no murmur Abdomen: soft, obese, normoactive bowel sounds, not tender Integumentary: no obvious rash Neurologic: alert, moving extremities Ext: no edema Hemodialysis access: L arm AVF Subjective Date of service: 04/25/21 Objective - Vital Signs Vital signs: Vital Signs - 12hr 04/24/21 04/25/21 22:58 04:00 Temperature 98.3 F 97.8 F Pulse Rate 99 H 90 Respiratory 22 20 Rate Blood Pressure 158/63 Blood Pressure 152/70 [Right] O2 Sat by Pulse 92 96 Oximetry - Lab 04/22/21 00:23 04/26/21 05:33 Most recent lab results Calcium 9.9 mg/dL (8.4-10.2) 04/23/21 04:00 Phosphorus 6.30 mg/dL (2.5-4.5) H 04/23/21 04:00 Magnesium 2.40 mg/dL (1.7-2.3) H 04/23/21 04:00 Medications & Allergies - Medications Allergies/Adverse Reactions: Allergies celecoxib Allergy (Verified 04/22/21 00:07) Unknown Sulfa (Sulfonamide Antibiotics) Adverse Reaction (Verified 04/22/21 00:07) Nausea Home Medications: Home Medications Medication Instructions Recorded Confirmed Last Taken Type Albuterol Mdi (or & Nicu Only) 2 puff IH QID PRN #1 inhalation 03/30/14 04/24/21 12/05/20 20:00 Rx [ProAir HFA Inhaler] Aspirin [Aspirin BABY CHEW TAB] 81 mg PO DAILY 03/30/14 04/24/21 01/30/21 08:40 History Febuxostat [Uloric] 80 mg PO DAILY 03/30/14 04/24/21 12/05/20 20:00 History Levothyroxine [Synthroid] 88 mcg PO DAILY 03/30/14 04/24/21 01/30/21 06:30 History Metoprolol [Lopressor TAB] 50 mg PO DAILY 03/30/14 04/24/21 02/01/21 10:00 History Montelukast [Singulair] 10 mg PO DAILY 03/30/14 04/24/21 02/01/21 10:00 History Quetiapine Fumarate [QUEtiapine 300 mg PO DAILY 03/30/14 04/24/21 01/30/21 21:00 History Fumarate] Rosuvastatin (Nf) [Crestor] 20 mg PO DAILY 03/30/14 04/24/21 12/05/20 20:00 History clonazePAM 2 mg PO HS 03/30/14 04/24/21 01/31/21 23:00 History sitaGLIPtin [Januvia] 50 mg PO DAILY 03/30/14 04/24/21 01/30/21 08:30 History Promethazine [Phenergan] 25 mg PO Q6H PRN 05/28/14 04/24/21 12/05/20 20:00 History Furosemide [Lasix] 40 mg PO DAILY 05/29/14 04/24/21 02/01/21 10:00 History levoFLOXacin [Levaquin] 250 mg PO QDAY #3 tablet 02/03/21 04/24/21 Unknown Rx Active Medications: Generic Name Dose Route Start Last Admin Trade Name Freq PRN Reason Stop Dose Admin Acetaminophen 650 mg 04/22/21 04:47 04/22/21 07:05 Acetaminophen 325 Mg Tab PO 650 mg Q4H PRN Administration Pain MILD(1-3)/Fever >100.5/LOBATO Albuterol 2.5 mg 04/22/21 04:47 Albuterol 2.5 Mg/3 Ml Nebu IH Q4HRT PRN Shortness Of Breath Aspirin 81 mg 04/22/21 10:00 04/24/21 10:22 Aspirin 81 Mg Tab Chew PO 81 mg DAILY JEAN-PAUL Administration Atorvastatin Calcium 40 mg 04/22/21 22:00 04/24/21 22:47 Atorvastatin 40 Mg Tab PO 40 mg QHS JEAN-PAUL Administration Azithromycin 500 mg 04/23/21 10:00 04/24/21 10:02 Azithromycin 250 Mg Tab PO 04/26/21 10:01 500 mg QDAY JEAN-PAUL Administration Clonazepam 2 mg 04/22/21 22:00 04/24/21 21:55 Clonazepam 2 Mg Tab PO 2 mg HS JEAN-PAUL Administration Dexamethasone 6 mg 04/23/21 10:00 04/24/21 10:02 Dexamethasone 4 Mg Tab PO 05/01/21 10:01 6 mg DAILY JEAN-PAUL Administration Dextrose 50 ml 04/22/21 13:00 04/24/21 17:06 Dextrose 50% In Water (25gm) 50 Ml Syringe IV 50 ml Q30MIN PRN Administration Hypoglycemia Protocol Famotidine 10 mg 04/22/21 10:00 04/24/21 21:55 Famotidine 10 Mg Tab PO 10 mg BID JEAN-PAUL Administration Furosemide 40 mg 04/22/21 10:00 04/24/21 10:03 Furosemide 40 Mg Tab PO 40 mg DAILY JEAN-PAUL Administration Heparin Sodium (Porcine) 5,000 unit 04/22/21 06:00 04/25/21 06:00 Heparin 5,000 Unit/1 Ml Vial SUB-Q 5,000 unit Q8HR JEAN-PAUL Administration Heparin Sodium (Porcine) 3,000 unit 04/22/21 22:34 Heparin 10,000 Units/10 Ml Vial IV MARYLU PRN hemodialysis Hydralazine HCl 10 mg 04/22/21 04:51 Hydralazine 20 Mg/1 Ml Inj IV Q6H PRN Blood Pressure Hydromorphone HCl 0.5 mg 04/22/21 04:47 Hydromorphone 1 Mg/1 Ml Inj IV Q3H PRN Pain , Severe (7-10) Ceftriaxone Sodium 2 gm in 100 mls @ 200 mls/hr 04/23/21 08:00 04/24/21 10:39 Rocephin/Ns 2 Gm/100 Ml IV 04/26/21 08:29 200 mls/hr Q24H JEAN-PAUL Administration Protocol Sodium Chloride 100 mls @ 999 mls/hr 04/22/21 22:34 Nacl 0.9% IV MARYLU PRN Hypotension Insulin Human Isoph/Insulin Regular 5 unit 04/22/21 17:00 04/24/21 10:01 Insulin Nph/Regular 70/30 Inj SUB-Q 5 unit BIDDIAB [facility]-PAUL Administration Insulin Human Lispro 0 unit 04/22/21 07:30 04/24/21 22:48 Insulin Lispro 100 Unit/Ml SUB-Q Not Given ACHS [facility] Protocol Levothyroxine Sodium 88 mcg 04/22/21 06:00 04/25/21 05:59 Levothyroxine 88 Mcg Tab PO 88 mcg DAILY@0600 JEAN-PAUL Administration Metoprolol Tartrate 50 mg 04/22/21 10:00 04/24/21 10:22 Metoprolol Tartrate 50 Mg Tab PO 50 mg DAILY JEAN-PAUL Administration Montelukast Sodium 10 mg 04/22/21 10:00 04/24/21 10:23 Montelukast 10 Mg Tab PO 10 mg DAILY JEAN-PAUL Administration Morphine Sulfate 2 mg 04/22/21 04:47 04/23/21 19:54 Morphine 2 Mg/1 Ml Inj IV 2 mg Q4H PRN Administration Pain, Moderate (4-6) Ondansetron HCl 4 mg 04/22/21 04:47 Ondansetron 4 Mg/2 Ml Inj IV Q8H PRN Nausea And Vomiting Quetiapine Fumarate 300 mg 04/22/21 10:00 04/24/21 10:23 Quetiapine 100 Mg Tab PO 300 mg DAILY JEAN-PAUL Administration Sodium Chloride 10 ml 04/22/21 10:00 04/24/21 22:47 Sodium Chloride 0.9% 10 Ml Flush Syringe IV 10 ml BID JEAN-PAUL Administration Sodium Chloride 10 ml 04/22/21 04:47 Sodium Chloride 0.9% 10 Ml Flush Syringe IV PRN PRN LINE FLUSH
[2021-04-25] MEDS: cefTRIAXone/NS 2 GM/100 ML 2 GM/100 ML BAG IV SCH (13:00)
--- NOTE | 2021-04-25 15:23 | Progress Note ---
Assessment and Plan Cultures: SARS CoV2 PCR: Positive as outpatient 04/22/2021 blood culture: In process A/P: 80-year-old female with ESRD on HD, hypertension, dementia, diabetes mellitus type 2, CAD was admitted with worsening shortness of breath and hypoxia. Patient was diagnosed with COVID-19 at [facility] recently: #Bilateral pneumonia: Secondary to COVID-19. normal WBC, D-dimer 3117, creatinine 9.4, procalcitonin 3.9, CRP 34.8, ferritin >2K #Acute hypoxic respiratory failure: Secondary to above. Requiring nasal cannula. #ESRD on HD: dose adjust abx and meds. #Diabetes #Hypertension #CAD Recs: -continue IV/PO Dexamethasone x 10 days -Due to ESRD, not a candidate for Remdesivir -prophylactic anticoagulation based on d-dimer per hospital protocol -procal elevation likely from renal failure, however complete 5 days of CAP coverage -monitor ferritin, d-dimer, CRP every 2-3 days Caden Rice MD, FACP, [facility] ([facility]) O: [phone] F: [phone] Subjective Date of service: 04/25/21 Interval history: No fever. Weaned to 5 L nasal cannula. Objective - Exam Narrative Exam: Physical Exam (reviewed in chart to minimize risk of transmission) Constitutional: deferred Head, Ears, Nose: deferred Eyes: deferred Neck: deferred Oral: deferred Cardiovascular: deferred Respiratory: deferred GI: deferred Musculoskeletal: deferred Skin: deferred Hem/Lymphatic: deferred Psych: deferred Neurological: deferred - Constitutional Vitals: Vital Signs Temp Pulse Resp BP Pulse Ox 97.8 F 90 20 152/70 92 04/25/21 04:00 04/25/21 04:00 04/25/21 04:00 04/25/21 04:00 04/25/21 10:18 Temperature -Last 24 Hours Temperature 97.8 F Temperature 98.3 F Temperature 97.8 F - Labs CBC & Chem 7: 04/22/21 00:23 04/23/21 04:00 Labs: Abnormal lab results 04/24/21 04/24/21 04/24/21 Range/Units 16:24 19:59 22:54 D-Dimer (0-234) ng/mlDDU POC Glucose 68 L 115 H 116 H (70-105) mg/dL Ferritin (10.0-200.0) ng/mL C-Reactive Protein (0.00-1.30) mg/dL 04/25/21 04/25/21 04/25/21 Range/Units 05:53 09:43 09:43 D-Dimer 3799.32 H (0-234) ng/mlDDU POC Glucose 129 H (70-105) mg/dL Ferritin 7666.0 H (10.0-200.0) ng/mL C-Reactive Protein (0.00-1.30) mg/dL 04/25/21 Range/Units 09:43 D-Dimer (0-234) ng/mlDDU POC Glucose (70-105) mg/dL Ferritin (10.0-200.0) ng/mL C-Reactive Protein 34.10 H (0.00-1.30) mg/dL
--- NOTE | 2021-04-25 15:54 | Vascular Lab Report ---
DUPLEX DOPPLER LOWER EXTREMITY VEINS, BILATERAL INDICATION / CLINICAL INFORMATION: evaluate for DVT. TECHNIQUE: Duplex doppler imaging was performed through the veins of both lower extremities using dasha ous compression and other maneuvers. COMPARISON: None available. FINDINGS: RIGHT COMMON FEMORAL VEIN: Negative. RIGHT FEMORAL VEIN: Negative. RIGHT POPLITEAL VEIN: Negative. RIGHT CALF VEINS: Negative. LEFT COMMON FEMORAL VEIN: Negative. LEFT FEMORAL VEIN: Negative. LEFT POPLITEAL VEIN: Negative. LEFT CALF VEINS: Negative. ADDITIONAL FINDINGS: None. IMPRESSION: 1. No sonographic evidence for DVT in either lower extremity. Scribed by: Janis Bhatt RDMS, RVT Scribed: 04/25/2021 12:59 PM I have reviewed the images, agree with this report, and edited this report as needed. Signer Name: Mata Lazo MD Signed: 04/25/2021 3:49 PM Workstation Name: [id number]
[2021-04-25] MEDS ORDERED: D5W/0.9% NACL 1,000 ML IV SCH (16:00)
[2021-04-25] MEDS ORDERED: DEXTROSE 10% *Hypoglycemia IV PRN (16:02)
[2021-04-25] MEDS: FAMOTIDINE 10 MG TAB PO SCH (22:06)
[2021-04-25] MEDS: ASPIRIN 81 MG TAB CHEW PO SCH (22:09)
[2021-04-25] MEDS: DEXAMETHASONE 4 MG TAB PO SCH (22:09)
[2021-04-25] MEDS: FUROSEMIDE 40 MG TAB PO SCH (22:10)
[2021-04-25] MEDS: METOPROLOL TARTRATE 50 MG TAB PO SCH (22:10)
[2021-04-25] MEDS: MONTELUKAST 10 MG TAB PO SCH (22:11)
[2021-04-25] MEDS: AZITHROMYCIN 250 MG TAB PO SCH (22:11)
[2021-04-25] MEDS: QUEtiapine 100 MG TAB PO SCH (22:11)
[2021-04-26] MEDS ORDERED: DEXTROSE 50% IN WATER (25GM) 50 ML SYRINGE IV ONE (05:52)
[2021-04-26 06:21] LABS: Calcium 10.7 mg/dL (8.4-10.2)
[2021-04-26] MEDS: HEPARIN 5,000 UNIT/1 ML VIAL SUB-Q SCH ×4 (06:29→23:22)
[2021-04-26] MEDS: LEVOTHYROXINE 88 MCG TAB PO SCH (06:36)
--- NOTE | 2021-04-26 08:29 | Progress Note ---
Assessment and Plan Assessment and plan: #Acute hypoxic respiratory failure-improving #COVID-19 infection/pneumonia -Currently on 6 L, will wean as tolerated -Continuous pulse oximetry -Continue steroids; not candidate for remdesivir due to ESRD -s/p abx for CAP coverage -Infectious disease following, assistance appreciated #ESRD requiring HD -On HD TTS schedule -Nephrology following, assistance appreciated #Hypertension -Continue metoprolol at current dose -IV hydralazine as needed #Elevated D-dimer -VQ scan low probability for PE #Acute encephalopathy #History of CVA -Continue aspirin and Crestor -CT head on admission negative for acute findings -MRI ordered -Neurology consulted, assistance appreciated #Hypoglycemia -Patient refusing to eat; speech therapy evaluation ordered -dobhoff to be placed for TF #Anemia -Likely secondary to ESRD -Epogen with HD -Transfuse for hemoglobin less than 7 Disposition Plan: continue medical management History Interval history: Glucose dropped to 40s and 20s. Hard to gain IV access for patient. Received D50 and D10. Patient alert to self. Hospitalist Physical - Physical exam Narrative exam: GENERAL: Well-developed well-nourished. In bed, no acute distress. HEENT: Nasal cannula at 6 L/min CHEST/LUNGS: Coarse breath sounds bilaterally HEART/CARDIOVASCULAR: RRR. No murmur, rubs or gallops appreciated. ABDOMEN: +BS. NT/ND. NEURO: Does not follow commands. EXTREMITIES: RUE edematous. PSYCH: Alert to person. - Constitutional Vitals: Temp Pulse Resp BP Pulse Ox 98.3 F 102 H 18 139/49 98 04/25/21 21:55 04/25/21 21:55 04/25/21 21:55 04/25/21 21:55 04/25/21 21:55 General appearance: Present: no acute distress, well-nourished Results - Labs CBC & Chem 7: 04/22/21 00:23 04/26/21 05:33 Labs: Laboratory Last Values WBC 8.4 K/mm3 (4.5-11.0) 04/23/21 02:20 RBC 3.47 M/mm3 (3.65-5.03) L 04/23/21 02:20 Hgb 10.1 gm/dl (10.1-14.3) 04/23/21 02:20 Hct 32.1 % (30.3-42.9) 04/23/21 02:20 MCV 92 fl (79-97) 04/23/21 02:20 MCH 29 pg (28-32) 04/23/21 02:20 MCHC 32 % (30-34) 04/23/21 02:20 RDW 16.9 % (13.2-15.2) H 04/23/21 02:20 Plt Count 178 K/mm3 (140-440) 04/23/21 02:20 Lymph % (Auto) 9.5 % (13.4-35.0) L 04/23/21 02:20 [place] % (Auto) 5.6 % (0.0-7.3) 04/23/21 02:20 Eos % (Auto) 0.0 % (0.0-4.3) 04/23/21 02:20 Baso % (Auto) 0.2 % (0.0-1.8) 04/23/21 02:20 Lymph # (Auto) 0.8 K/mm3 (1.2-5.4) L 04/23/21 02:20 [place] # (Auto) 0.5 K/mm3 (0.0-0.8) 04/23/21 02:20 Eos # (Auto) 0.0 K/mm3 (0.0-0.4) 04/23/21 02:20 Baso # (Auto) 0.0 K/mm3 (0.0-0.1) 04/23/21 02:20 Seg Neutrophils % 84.7 % (40.0-70.0) H 04/23/21 02:20 Seg Neutrophils # 7.1 K/mm3 (1.8-7.7) 04/23/21 02:20 D-Dimer 3799.32 ng/mlDDU (0-234) H 04/25/21 09:43 Sodium 141 mmol/L (137-145) D 04/26/21 05:33 Potassium 4.1 mmol/L (3.6-5.0) 04/26/21 05:33 Chloride 95.4 mmol/L (98-107) L 04/26/21 05:33 Carbon Dioxide 24 mmol/L (22-30) 04/26/21 05:33 Anion Gap 26 mmol/L 04/26/21 05:33 BUN 43 mg/dL (7-17) H 04/26/21 05:33 Creatinine 6.9 mg/dL (0.6-1.2) H 04/26/21 05:33 Estimated GFR 7 ml/min 04/26/21 05:33 BUN/Creatinine Ratio 6 % 04/26/21 05:33 Glucose 118 mg/dL (65-100) H 04/26/21 05:33 POC Glucose 128 mg/dL (70-105) H 04/26/21 07:18 Lactic Acid 0.60 mmol/L (0.7-2.0) L 04/22/21 05:26 Calcium 10.7 mg/dL (8.4-10.2) H 04/26/21 05:33 Phosphorus 6.30 mg/dL (2.5-4.5) H 04/23/21 04:00 Magnesium 2.40 mg/dL (1.7-2.3) H 04/23/21 04:00 Ferritin 7666.0 ng/mL (10.0-200.0) H 04/25/21 09:43 Total Bilirubin 0.40 mg/dL (0.1-1.2) 04/22/21 00:23 AST 35 units/L (5-40) 04/22/21 00:23 ALT 16 units/L (7-56) 04/22/21 00:23 Alkaline Phosphatase 49 units/L (35-129) 04/22/21 00:23 Lactate Dehydrogenase 493 units/L (91-180) H 04/22/21 00:23 C-Reactive Protein 34.10 mg/dL (0.00-1.30) H 04/25/21 09:43 Total Protein 6.3 g/dL (6.3-8.2) 04/22/21 00:23 Albumin 3.0 g/dL (3.9-5) L 04/22/21 00:23 Albumin/Globulin Ratio 0.9 % 04/22/21 00:23 Procalcitonin 3.90 ng/mL (<0.15) 04/22/21 00:23 Nasal Screen MRSA (PCR) Negative (Negative) 04/25/21 Unknown Coronavirus (PCR) Positive (Negative) A 04/22/21 10:36 Hepatitis A IgM Ab Non-reactive (NonReactive) 04/23/21 01:13 Hep Bs Antigen Non-reactive (Negative) 04/23/21 01:13 Hep B Core IgM Ab Non-reactive (NonReactive) 04/23/21 01:13 Hepatitis C Antibody Non-reactive (NonReactive) 04/23/21 01:13 Microbiology: Microbiology 04/22/21 00:23 Peripheral/Venous Blood Culture - Preliminary NO GROWTH AFTER 4 DAYS 04/22/21 00:28 Peripheral/Venous Blood Culture - Preliminary NO GROWTH AFTER 4 DAYS Delacruz/IV: Voiding Method Incontinent Active Medications - Current Medications Current Medications: Generic Name Dose Route Start Last Admin Trade Name Freq PRN Reason Stop Dose Admin Acetaminophen 650 mg 04/22/21 04:47 04/22/21 07:05 Acetaminophen 325 Mg Tab PO 650 mg Q4H PRN Administration Pain MILD(1-3)/Fever >100.5/LOBATO Albuterol 2.5 mg 04/22/21 04:47 Albuterol 2.5 Mg/3 Ml Nebu IH Q4HRT PRN Shortness Of Breath Aspirin 81 mg 04/22/21 10:00 04/25/21 22:09 Aspirin 81 Mg Tab Chew PO Not Given DAILY JEAN-PAUL Atorvastatin Calcium 40 mg 04/22/21 22:00 04/25/21 22:06 Atorvastatin 40 Mg Tab PO 40 mg QHS JEAN-PAUL Administration Azithromycin 500 mg 04/23/21 10:00 04/25/21 22:11 Azithromycin 250 Mg Tab PO 04/26/21 10:01 Not Given QDAY JEAN-PAUL Clonazepam 2 mg 04/22/21 22:00 04/25/21 22:06 Clonazepam 2 Mg Tab PO 2 mg HS JEAN-PAUL Administration Dexamethasone 6 mg 04/23/21 10:00 04/25/21 22:09 Dexamethasone 4 Mg Tab PO 05/01/21 10:01 Not Given DAILY JEAN-PAUL Dextrose 0 ml 04/25/21 16:02 04/26/21 06:39 Dextrose 10% *Hypoglycemia IV 250 ml PRN PRN Administration Hypoglycemia Protocol Famotidine 10 mg 04/22/21 10:00 04/25/21 22:06 Famotidine 10 Mg Tab PO 10 mg BID JEAN-PAUL Administration Furosemide 40 mg 04/22/21 10:00 04/25/21 22:10 Furosemide 40 Mg Tab PO Not Given DAILY JEAN-PAUL Heparin Sodium (Porcine) 5,000 unit 04/22/21 06:00 04/26/21 06:29 Heparin 5,000 Unit/1 Ml Vial SUB-Q 5,000 unit Q8HR JEAN-PAUL Administration Heparin Sodium (Porcine) 3,000 unit 04/22/21 22:34 Heparin 10,000 Units/10 Ml Vial IV MARYLU PRN hemodialysis Hydralazine HCl 10 mg 04/22/21 04:51 Hydralazine 20 Mg/1 Ml Inj IV Q6H PRN Blood Pressure Hydromorphone HCl 0.5 mg 04/22/21 04:47 Hydromorphone 1 Mg/1 Ml Inj IV Q3H PRN Pain , Severe (7-10) Ceftriaxone Sodium 2 gm in 100 mls @ 200 mls/hr 04/23/21 08:00 04/25/21 13:00 Rocephin/Ns 2 Gm/100 Ml IV 04/26/21 08:29 200 mls/hr Q24H JEAN-PAUL Administration Protocol Sodium Chloride 100 mls @ 999 mls/hr 04/22/21 22:34 Nacl 0.9% IV MARYLU PRN Hypotension Dextrose/Sodium Chloride 1,000 mls @ 40 mls/hr 04/25/21 16:00 04/25/21 23:59 D5ns IV 40 mls/hr DIRECT JEAN-PAUL Administration Insulin Human Lispro 0 unit 04/22/21 07:30 04/25/21 23:00 Insulin Lispro 100 Unit/Ml SUB-Q Not Given ACHS REPLACED BY [facility] Protocol Levothyroxine Sodium 88 mcg 04/22/21 06:00 04/26/21 06:36 Levothyroxine 88 Mcg Tab PO Not Given DAILY@0600 REPLACED BY [facility] Metoprolol Tartrate 50 mg 04/22/21 10:00 04/25/21 22:10 Metoprolol Tartrate 50 Mg Tab PO Not Given DAILY REPLACED BY [facility] Montelukast Sodium 10 mg 04/22/21 10:00 04/25/21 22:11 Montelukast 10 Mg Tab PO Not Given DAILY REPLACED BY [facility] Morphine Sulfate 2 mg 04/22/21 04:47 04/23/21 19:54 Morphine 2 Mg/1 Ml Inj IV 2 mg Q4H PRN Administration Pain, Moderate (4-6) Ondansetron HCl 4 mg 04/22/21 04:47 Ondansetron 4 Mg/2 Ml Inj IV Q8H PRN Nausea And Vomiting Quetiapine Fumarate 300 mg 04/22/21 10:00 04/25/21 22:11 Quetiapine 100 Mg Tab PO Not Given DAILY JEAN-PAUL Sodium Chloride 10 ml 04/22/21 10:00 04/25/21 23:25 Sodium Chloride 0.9% 10 Ml Flush Syringe IV 10 ml BID JEAN-PAUL Administration Sodium Chloride 10 ml 04/22/21 04:47 Sodium Chloride 0.9% 10 Ml Flush Syringe IV PRN PRN LINE FLUSH Nutrition/Malnutrition Assess - Dietary Evaluation Nutrition/Malnutrition Findings: Nutrition Notes Start: 04/22/21 10:50 Freq: Status: Active Protocol: Document 04/22/21 10:50 NHALL (Rec: 04/22/21 10:55 NHALL [id number]) Nutrition Notes Need for Assessment generated from: MD Order,Education Initial or Follow up Assessment Current Diagnosis CKD (stage V CKD),Coronary Artery Disease,Diabetes, Hypertension,Respiratory Failure,Hyperlipidemia Other Pertinent Diagnosis COVID-19 pneu, Dementia Current Diet Cardiac/Consistent CHO Labs/Tests BUN 40 Cr 9.4 Pertinent Medications Decadron, Lasix Height 5 ft 2 in Weight 69.853 kg [place] Body Weight (kg) 50.00 BMI 28.1 Weight Status Overweight Subjective/Other Information RD consulted for diet education; pt in ED at this time and is not appropriate for diet education. Burn Absent Trauma Absent Minimum of two criteria No #1 Nutrition Diagnosis Predicted suboptimal energy intake Etiology advanced age, dementia, medical dx As Evidenced by Signs and Symptoms pt with COVID-19 pneu Is patient on ventilator? No Is Patient Ambulatory and/or Out of Bed No REE-([facility]-confined to bed) 1358.880 Calculation Used for Recommendations [facility] Additional Notes Pro needs >1.2g/kg: >84g/day Fluid needs 1-1.5L/day Nutrition Intervention Change Diet Order: Continue current diet order Goal #1 PO intake to meet at least 75% energy and pro needs Anticipated Discharge Needs: Heart-healthy, CHO-controlled diet Follow-Up By: 04/26/21 Additional Comments F/U: intakes, transfer to medical floor
--- NOTE | 2021-04-26 08:40 | Consultation ---
History of Present Illness Consult date: 04/26/21 Reason for Consult: Encephalopathy,COVID-19 ,ESRD on HD History of present illness: Dyspnea Respiratory distress History of present illness: 80-year female with a past medical history end-stage renal disease on dialysis, hypertension,, dementia, diabetes, and hypertension, CAD with stent x2 was brought to the emergency room because of shortness of breath and hypoxia. Patient was apparently diagnosed with COVID on April 17 at [facility] ER. She was discharged on azithromycin and Tessalon Perles. Tonight patient was found on the floor by her family members and placed into the bed and 911 notified. EMS reports a fever of 104 and states was in the 80s on room air. Patient placed on nonrebreather with O2 sat of 92 to 93%. Patient oriented to year and self. She denies any pain. Patient receives dialysis Thursday, , and Thursday and has been compliant. In the emergency room patient D-dimer was 3117.47. BUN was 40 creatinine is 94, ferritin is greater than 2000. Chest x-ray shows patchy bilateral pneumonia which can be seen in atypical viral pneumonia such as COVID. Showed going to a dmit the patient to put the patient on Rocephin Zithromax and Decadron. nephrology ,and infectious disease consulted neurorology consulted for evaluation of change in mentation she is on Klonpine and seroquel CT brain is unremarkable MRI brain is pending DD#[id number] CRP#34.10 Cr#10.7---6.9 today Past History Past Medical History: diabetes, ESRD, hypertension, renal failure, other (Dementia) Medications and Allergies Allergies Allergy/AdvReac Type Severity Reaction Status Date / Time celecoxib Allergy Unknown Verified 04/22/21 00:07 Sulfa (Sulfonamide AdvReac Nausea Verified 04/22/21 00:07 Antibiotics) Home Medications Medication Instructions Recorded Confirmed Last Taken Type Albuterol Mdi (or & Nicu Only) 2 puff IH QID PRN #1 inhalation 03/30/14 12/09/20 12/05/20 20:00 Rx [ProAir HFA Inhaler] Aspirin [Aspirin BABY CHEW TAB] 81 mg PO DAILY 03/30/14 02/01/21 01/30/21 08:40 History Febuxostat [Uloric] 80 mg PO DAILY 03/30/14 12/09/20 12/05/20 20:00 History Levothyroxine [Synthroid] 88 mcg PO DAILY 03/30/14 02/01/21 01/30/21 06:30 H istory Metoprolol [Lopressor TAB] 50 mg PO DAILY 03/30/14 02/02/21 02/01/21 10:00 History Montelukast [Singulair] 10 mg PO DAILY 03/30/14 02/02/21 02/01/21 10:00 History Quetiapine Fumarate [QUEtiapine 300 mg PO DAILY 03/30/14 02/01/21 01/30/21 21:00 History Fumarate] Rosuvastatin (Nf) [Crestor] 20 mg PO DAILY 03/30/14 02/01/21 12/05/20 20:00 History clonazePAM 2 mg PO HS 03/30/14 02/01/21 01/31/21 23:00 History sitaGLIPtin [Januvia] 50 mg PO DAILY 03/30/14 02/01/21 01/30/21 08:30 History Promethazine [Phenergan] 25 mg PO Q6H PRN 05/28/14 12/09/20 12/05/20 20:00 History Furosemide [Lasix] 40 mg PO DAILY 05/29/14 02/02/21 02/01/21 10:00 History levoFLOXacin [Levaquin] 250 mg PO QDAY #3 tablet 02/03/21 Unknown Rx Active Meds: Active Medications Azithromycin (Zithromax/Ns) 500 mg in 250 mls @ 250 mls/hr IV ONCE ONE; Protocol Stop: 04/22/21 04:59 Review of Systems All systems: negative Cardiovascular: shortness of breath, dyspnea on exertion Respiratory: cough, shortness of breath, dyspnea on exertion Past History Past Medical History: diabetes, ESRD, hypertension, renal failure, other (Dementia) Medications and Allergies Allergies Allergy/AdvReac Type Severity Reaction Status Date / Time celecoxib Allergy Unknown Verified 04/22/21 00:07 Sulfa (Sulfonamide AdvReac Nausea Verified 04/22/21 00:07 Antibiotics) Home Medications Medication Instructions Recorded Confirmed Last Taken Type Albuterol Mdi (or & Nicu Only) 2 puff IH QID PRN #1 inhalation 03/30/14 04/24/21 12/05/20 20:00 Rx [ProAir HFA Inhaler] Aspirin [Aspirin BABY CHEW TAB] 81 mg PO DAILY 03/30/14 04/24/21 01/30/21 08:40 History Febuxostat [Uloric] 80 mg PO DAILY 03/30/14 04/24/21 12/05/20 20:00 History Levothyroxine [Synthroid] 88 mcg PO DAILY 03/30/14 04/24/21 01/30/21 06:30 History Metoprolol [Lopressor TAB] 50 mg PO DAILY 03/30/14 04/24/21 02/01/21 10:00 History Montelukast [Singulair] 10 mg PO DAILY 03/30/14 04/24/21 02/01/21 10:00 History Quetiapine Fumarate [QUEtiapine 300 mg PO DAILY 03/30/14 04/24/21 01/30/21 21:00 History Fumarate] Rosuvastatin (Nf) [Crestor] 20 mg PO DAILY 03/30/14 04/24/21 12/05/20 20:00 History clonazePAM 2 mg PO HS 03/30/14 04/24/21 01/31/21 23:00 History sitaGLIPtin [Januvia] 50 mg PO DAILY 03/30/14 04/24/21 01/30/21 08:30 History Promethazine [Phenergan] 25 mg PO Q6H PRN 05/28/14 04/24/21 12/05/20 20:00 History Furosemide [Lasix] 40 mg PO DAILY 05/29/14 04/24/21 02/01/21 10:00 History levoFLOXacin [Levaquin] 250 mg PO QDAY #3 tablet 02/03/21 04/24/21 Unknown Rx Active Meds: Active Medications Acetaminophen (Acetaminophen 325 Mg Tab) 650 mg PO Q4H PRN PRN Reason: Pain MILD(1-3)/Fever >100.5/LOBATO Last Admin: 04/22/21 07:05 Dose: 650 mg Albuterol (Albuterol 2.5 Mg/3 Ml Nebu) 2.5 mg IH Q4HRT PRN PRN Reason: Shortness Of Breath Aspirin (Aspirin 81 Mg Tab Chew) 81 mg PO DAILY JEAN-PAUL Last Admin: 04/25/21 22:09 Dose: Not Given Atorvastatin Calcium (Atorvastatin 40 Mg Tab) 40 mg PO QHS [facility] Last Admin: 04/25/21 22:06 Dose: 40 mg Azithromycin (Azithromycin 250 Mg Tab) 500 mg PO QDAY [facility] Stop: 04/26/21 10:01 Last Admin: 04/25/21 22:11 Dose: Not Given Clonazepam (Clonazepam 2 Mg Tab) 2 mg PO HS [facility] Last Admin: 04/25/21 22:06 Dose: 2 mg Dexamethasone (Dexamethasone 4 Mg Tab) 6 mg PO DAILY [facility] Stop: 05/01/21 10:01 Last Admin: 04/25/21 22:09 Dose: Not Given Dextrose (Dextrose 10% *Hypoglycemia) 0 ml IV PRN PRN; Protocol PRN Reason: Hypoglycemia Last Admin: 04/26/21 06:39 Dose: 250 ml Famotidine (Famotidine 10 Mg Tab) 10 mg PO BID [facility] Last Admin: 04/25/21 22:06 Dose: 10 mg Furosemide (Furosemide 40 Mg Tab) 40 mg PO DAILY [facility] Last Admin: 04/25/21 22:10 Dose: Not Given Heparin Sodium (Porcine) (Heparin 5,000 Unit/1 Ml Vial) 5,000 unit SUB-Q Q8HR [facility] Last Admin: 04/26/21 06:29 Dose: 5,000 unit Heparin Sodium (Porcine) (Heparin 10,000 Units/10 Ml Vial) 3,000 unit IV MARYLU PRN PRN Reason: hemodialysis Hydralazine HCl (Hydralazine 20 Mg/1 Ml Inj) 10 mg IV Q6H PRN PRN Reason: Blood Pressure Hydromorphone HCl (Hydromorphone 1 Mg/1 Ml Inj) 0.5 mg IV Q3H PRN PRN Reason: Pain , Severe (7-10) Sodium Chloride (Nacl 0.9%) 100 mls @ 999 mls/hr IV MARYLU PRN PRN Reason: Hypotension Dextrose/Sodium Chloride (D5ns) 1,000 mls @ 40 mls/hr IV DIRECT [facility] Last Admin: 04/25/21 23:59 Dose: 40 mls/hr Insulin Human Lispro (Insulin Lispro 100 Unit/Ml) 0 unit SUB-Q ACHS [facility]; Protocol Last Admin: 04/25/21 23:00 Dose: Not Given Levothyroxine Sodium (Levothyroxine 88 Mcg Tab) 88 mcg PO DAILY@0600 [facility] Last Admin: 04/26/21 06:36 Dose: Not Given Metoprolol Tartrate (Metoprolol Tartrate 50 Mg Tab) 50 mg PO DAILY [facility] Last Admin: 04/25/21 22:10 Dose: Not Given Montelukast Sodium (Montelukast 10 Mg Tab) 10 mg PO DAILY [facility] Last Admin: 04/25/21 22:11 Dose: Not Given Morphine Sulfate (Morphine 2 Mg/1 Ml Inj) 2 mg IV Q4H PRN PRN Reason: Pain, Moderate (4-6) Last Admin: 04/23/21 19:54 Dose: 2 mg Ondansetron HCl (Ondansetron 4 Mg/2 Ml Inj) 4 mg IV Q8H PRN PRN Reason: Nausea And Vomiting Quetiapine Fumarate (Quetiapine 100 Mg Tab) 300 mg PO DAILY [facility] Last Admin: 04/25/21 22:11 Dose: Not Given Sodium Chloride (Sodium Chloride 0.9% 10 Ml Flush Syringe) 10 ml IV BID [facility] Last Admin: 04/25/21 23:25 Dose: 10 ml Sodium Chloride (Sodium Chloride 0.9% 10 Ml Flush Syringe) 10 ml IV PRN PRN PRN Reason: LINE FLUSH Physical Examination - Vital Signs Vital Signs: Vital Signs Temp Pulse Resp BP Pulse Ox 99.4 F 75 24 115/45 97 04/22/21 00:30 04/22/21 00:30 04/22/21 00:30 04/22/21 00:30 04/22/21 00:30 - Constitutional General appearance: uncomfortable - EENT EENT: Present: PERRL, mucous membranes moist - Respiratory Respiratory: Present: lungs clear, rhonchi - Cardiovascular Cardiovascular: Present: regular rate, normal S1, normal S2 Extremities: Present: no peripheral edema bilatateraly, no clubbing, cyanosis - Gastrointestinal Gastrointestinal: Present: normoactive bowel sounds - Integumentary Integumentary: Present: normal - Neurologic Cranial nerve examination: PERRL, EOMI, intact Speech examination: other (mumble confused and restless today will not respond to command ,) Detailed motor examination: grossly full strength in, other (also noted asterexsis bilateral upper ) Results - Laboratory Findings CBC and BMP: 04/22/21 00:23 04/26/21 05:33 Abnormal Lab Findings: Abnormal Labs 04/22/21 04/22/21 04/22/21 00:23 00:23 00:23 RBC 3.36 L Hgb 9.8 L RDW 17.2 H Lymph % (Auto) 10.7 L Lymph # (Auto) 0.6 L Seg Neutrophils % 83.2 H D-Dimer 3117.47 H Sodium Chloride BUN Creatinine Glucose POC Glucose Lactic Acid Calcium Phosphorus Magnesium Ferritin > 2000.0 H Lactate Dehydrogenase C-Reactive Protein Albumin Coronavirus (PCR) 04/22/21 04/22/21 04/22/21 00:23 03:04 05:26 RBC Hgb RDW Lymph % (Auto) Lymph # (Auto) Seg Neutrophils % D-Dimer Sodium Chloride 95.0 L BUN 40 H Creatinine 9.4 H Glucose 108 H POC Glucose 66 L Lactic Acid 0.60 L Calcium Phosphorus Magnesium Ferritin Lactate Dehydrogenase 493 H C-Reactive Protein 34.80 H Albumin 3.0 L Coronavirus (PCR) 04/22/21 04/22/21 04/22/21 08:19 10:36 11:40 RBC Hgb RDW Lymph % (Auto) Lymph # (Auto) Seg Neutrophils % D-Dimer Sodium Chloride BUN Creatinine Glucose POC Glucose 116 H 288 H Lactic Acid Calcium Phosphorus Magnesium Ferritin Lactate Dehydrogenase C-Reactive Protein Albumin Coronavirus (PCR) Positive A 04/22/21 04/23/21 04/23/21 17:05 00:19 02:20 RBC 3.47 L Hgb RDW 16.9 H Lymph % (Auto) 9.5 L Lymph # (Auto) 0.8 L Seg Neutrophils % 84.7 H D-Dimer Sodium Chloride BUN Creatinine Glucose POC Glucose 159 H 129 H Lactic Acid Calcium Phosphorus Magnesium Ferritin Lactate Dehydrogenase C-Reactive Protein Albumin Coronavirus (PCR) 04/23/21 04/23/21 04/23/21 04:00 12:36 15:52 RBC Hgb RDW Lymph % (Auto) Lymph # (Auto) Seg Neutrophils % D-Dimer Sodium 134 L Chloride 90.9 L BUN 54 H Creatinine 10.7 H Glucose 119 H POC Glucose 126 H 69 L Lactic Acid Calcium Phosphorus 6.30 H Magnesium 2.40 H Ferritin Lactate Dehydrogenase C-Reactive Protein Albumin Coronavirus (PCR) 04/23/21 04/24/21 04/24/21 23:22 07:48 16:24 RBC Hgb RDW Lymph % (Auto) Lymph # (Auto) Seg Neutrophils % D-Dimer Sodium Chloride BUN Creatinine Glucose POC Glucose 147 H 158 H 68 L Lactic Acid Calcium Phosphorus Magnesium Ferritin Lactate Dehydrogenase C-Reactive Protein Albumin Coronavirus (PCR) 04/24/21 04/24/21 04/25/21 19:59 22:54 05:53 RBC Hgb RDW Lymph % (Auto) Lymph # (Auto) Seg Neutrophils % D-Dimer Sodium Chloride BUN Creatinine Glucose POC Glucose 115 H 116 H 129 H Lactic Acid Calcium Phosphorus Magnesium Ferritin Lactate Dehydrogenase C-Reactive Protein Albumin Coronavirus (PCR) 04/25/21 04/25/21 04/25/21 09:43 09:43 09:43 RBC Hgb RDW Lymph % (Auto) Lymph # (Auto) Seg Neutrophils % D-Dimer 3799.32 H Sodium Chloride BUN Creatinine Glucose POC Glucose Lactic Acid Calcium Phosphorus Magnesium Ferritin 7666.0 H Lactate Dehydrogenase C-Reactive Protein 34.10 H Albumin Coronavirus (PCR) 04/25/21 04/26/21 04/26/21 22:56 05:33 05:34 RBC Hgb RDW Lymph % (Auto) Lymph # (Auto) Seg Neutrophils % D-Dimer Sodium Chloride 95.4 L BUN 43 H Creatinine 6.9 H Glucose 118 H POC Glucose 109 H 49 L Lactic Acid Calcium 10.7 H Phosphorus Magnesium Ferritin Lactate Dehydrogenase C-Reactive Protein Albumin Coronavirus (PCR) 04/26/21 07:18 RBC Hgb RDW Lymph % (Auto) Lymph # (Auto) Seg Neutrophils % D-Dimer Sodium Chloride BUN Creatinine Glucose POC Glucose 128 H Lactic Acid Calcium Phosphorus Magnesium Ferritin Lactate Dehydrogenase C-Reactive Protein Albumin Coronavirus (PCR) Assessment and Plan Assessment and Plan 80-year female with a past medical history end-stage renal disease on dialysis, hypertension,, dementia, diabetes, and hypertension, CAD with stent x2 was brought to the emergency room because of shortness of breath and hypoxia. Patient was apparently diagnosed with COVID on April 17 at [facility], [place]. She was discharged on azithromycin and Tessalon Perles. Tonight patient was found on the floor by her family members and placed into the bed and 911 notified. EMS reports a fever of 104 and states was in the 80s on room air. Patient placed on nonrebreather with O2 sat of 92 to 93%. Patient oriented to year and self. She denies any pain. Patient receives dialysis Thursday, , and Thursday and has been compliant. #Acute encephalopathy #History of CVA -Continue aspirin and Crestor -CT head on admission negative for acute findings -she is with no focal weakness -asterexsis is mostly related to renal failure and or infection consider restart Klonpine at 1 mg qhs -- to avoid withdrawal , hold if sedated -hold seroquel for now -MRI brain when possible -asa 81 mg -SQ heparine -EEG today #Acute hypoxic respiratory failure-improving #COVID-19 infection/pneumonia -Currently on 5 L, will wean as tolerated -Continuous pulse oximetry -Continue steroids; not candidate for remdesivir due to ESRD -Continue CAP coverage x5 days (day 4 of 5) -Infectious disease following, assistance appreciated #ESRD requiring HD -On HD TTS schedule -Nephrology following, assistance appreciated #Hypertension -Continue metoprolol at current dose -IV hydralazine as needed #Elevated D-dimer -VQ scan low probability for PE -will trend every 3 days #Hypoglycemia -Patient refusing to eat; speech therapy evaluation ordered -Started D5 normal saline -will consider other forms of nutrition if continues #Anemia -Likely secondary to ESRD -Epogen with HD -Transfuse for hemoglobin less than 7 Disposition Plan: Continue medical management will follow as needed
[2021-04-26] MEDS ORDERED: DEXTROSE 10% *Hypoglycemia IV PRN (09:04)
[2021-04-26] MEDS: AZITHROMYCIN 250 MG TAB PO SCH (10:57)
[2021-04-26] MEDS: DEXAMETHASONE 4 MG TAB PO SCH (10:57)
[2021-04-26] MEDS: METOPROLOL TARTRATE 50 MG TAB PO SCH (10:58)
[2021-04-26] MEDS: QUEtiapine 100 MG TAB PO SCH (10:58)
[2021-04-26] MEDS: FUROSEMIDE 40 MG TAB PO SCH (10:59)
[2021-04-26] MEDS: MONTELUKAST 10 MG TAB PO SCH (11:18)
[2021-04-26] MEDS: ASPIRIN 81 MG TAB CHEW PO SCH (11:19)
[2021-04-26] MEDS ORDERED: D10W 250 ML IV SOLN IV ONE (12:28)
[2021-04-26] MEDS ORDERED: SODIUM BICARBONATE 325 MG TAB FEEDTUBE PRN (12:29)
[2021-04-26] MEDS ORDERED: LIPASE 10,500/PROTEASE 25,000/AMYLASE 43,750 (UNITS) DR CAP FEEDTUBE PRN (12:29)
[2021-04-26] MEDS ORDERED: SIMPLE SYRUP 15 ML FEEDTUBE PRN ×2 (12:29)
[2021-04-26] MEDS ORDERED: DEXTROSE/DEXTRIN/MALTOSE 24 GM CARB PER 31 GM TUBE PO ONE (12:46)
--- NOTE | 2021-04-26 12:50 | Progress Note ---
Assessment and Plan Cultures: SARS CoV2 PCR: Positive as outpatient and here 04/22/2021 blood culture: no growth. A/P: 80-year-old female with ESRD on HD, hypertension, dementia, diabetes mellitus type 2, CAD was admitted with worsening shortness of breath and hypoxia. Patient was diagnosed with COVID-19 at [facility] recently: #Bilateral pneumonia: Secondary to COVID-19. normal WBC, D-dimer 3117, creatinine 9.4, procalcitonin 3.9, CRP 34.8, ferritin >2K. procal elevation likely from renal failure, however completed 5 days of CAP coverage #Acute hypoxic respiratory failure: Secondary to above. Requiring nasal cannula. #ESRD on HD: dose adjust abx and meds. #Diabetes #Hypertension #CAD Recs: -continue IV/PO Dexamethasone x 10 days -Due to ESRD, not a candidate for Remdesivir -prophylactic anticoagulation based on d-dimer per hospital protocol -completed abx -monitor ferritin, d-dimer, CRP every 2-3 days Caden Rice MD, FACP, [facility] ([facility]) O: [phone] F: [phone] Subjective Date of service: 04/26/21 Interval history: No fever. Stable, on oxygen. Objective - Exam Narrative Exam: Physical Exam (reviewed in chart to minimize risk of transmission) Constitutional: deferred Head, Ears, Nose: deferred Eyes: deferred Neck: deferred Oral: deferred Cardiovascular: deferred Respiratory: deferred GI: deferred Musculoskeletal: deferred Skin: deferred Hem/Lymphatic: deferred Psych: deferred Neurological: deferred - Constitutional Vitals: Vital Signs Temp Pulse Resp BP Pulse Ox 98.3 F 120 H 18 151/51 98 04/25/21 21:55 04/26/21 10:58 04/25/21 21:55 04/26/21 10:58 04/25/21 21:55 Temperature -Last 24 Hours Temperature 98.3 F Temperature 98.2 F Temperature 98.2 F - Labs CBC & Chem 7: 04/22/21 00:23 04/26/21 05:33 Labs: Abnormal lab results 04/25/21 04/26/21 04/26/21 Range/Units 22:56 05:33 05:34 Chloride 95.4 L (98-107) mmol/L BUN 43 H (7-17) mg/dL Creatinine 6.9 H (0.6-1.2) mg/dL Glucose 118 H (65-100) mg/dL POC Glucose 109 H 49 L (70-105) mg/dL Calcium 10.7 H (8.4-10.2) mg/dL 04/26/21 04/26/21 Range/Units 07:18 11:58 Chloride (98-107) mmol/L BUN (7-17) mg/dL Creatinine (0.6-1.2) mg/dL Glucose (65-100) mg/dL POC Glucose 128 H 24 L (70-105) mg/dL Calcium (8.4-10.2) mg/dL
[2021-04-26] MEDS ORDERED: DEXTROSE 10% *Hypoglycemia IV ONE (13:00)
--- NOTE | 2021-04-26 13:10 | Progress Note ---
Assessment and Plan 1. ESRD: Patient is on maintenance hemodialysis three times a week, TTS schedule. Last outpatient hemodialysis 04/20. Hemodialysis: 04/23, 04/25. 2. FEN: Monitor lytes and volume status. 3. Acute hypoxic resp failure, POA: 2/2 Covid-19 PNA. Supplemental O2. Per protocol. Volume control thru HD. Monitor. 4. Covid PNA, POA: Decadron. Followed by ID. 5. Hypoglycemia. 6. Anemia, POA: Epogen with HD. 7. DM type 2: Hypoglycemia. 8. Hypertension: Monitor BP. Adjust meds as needed. Subjective: Patient was seen and examined at the bedside. Examination: General appearance: well-developed, obese, appears stated age, not in distress, NG tube HEENT: ATNC Neck: trachea midline Respiratory: coarse breath sounds Heart: regular, S1S2, no murmur Abdomen: soft, obese, normoactive bowel sounds, not tender Integumentary: no obvious rash Neurologic: lethargic, non-verbal, not following any command Ext: no edema Hemodialysis access: L arm AVF Subjective Date of service: 04/26/21 Objective - Vital Signs Vital signs: Vital Signs - 12hr 04/26/21 10:58 Pulse Rate 120 H Blood Pressure 151/51 - Lab 04/22/21 00:23 04/26/21 05:33 Most recent lab results Calcium 10.7 mg/dL (8.4-10.2) H 04/26/21 05:33 Phosphorus 6.30 mg/dL (2.5-4.5) H 04/23/21 04:00 Magnesium 2.40 mg/dL (1.7-2.3) H 04/23/21 04:00 Medications & Allergies - Medications Allergies/Adverse Reactions: Allergies celecoxib Allergy (Verified 04/22/21 00:07) Unknown Sulfa (Sulfonamide Antibiotics) Adverse Reaction (Verified 04/22/21 00:07) Nausea Home Medications: Home Medications Medication Instructions Recorded Confirmed Last Taken Type Albuterol Mdi (or & Nicu Only) 2 puff IH QID PRN #1 inhalation 03/30/14 04/24/21 12/05/20 20:00 Rx [ProAir HFA Inhaler] Aspirin [Aspirin BABY CHEW TAB] 81 mg PO DAILY 03/30/14 04/24/21 01/30/21 08:40 History Febuxostat [Uloric] 80 mg PO DAILY 03/30/14 04/24/21 12/05/20 20:00 History Levothyroxine [Synthroid] 88 mcg PO DAILY 03/30/14 04/24/21 01/30/21 06:30 History Metoprolol [Lopressor TAB] 50 mg PO DAILY 03/30/14 04/24/21 02/01/21 10:00 History Montelukast [Singulair] 10 mg PO DAILY 03/30/14 04/24/21 02/01/21 10:00 History Quetiapine Fumarate [QUEtiapine 300 mg PO DAILY 03/30/14 04/24/21 01/30/21 21:00 History Fumarate] Rosuvastatin (Nf) [Crestor] 20 mg PO DAILY 03/30/14 04/24/21 12/05/20 20:00 History clonazePAM 2 mg PO HS 03/30/14 04/24/21 01/31/21 23:00 History sitaGLIPtin [Januvia] 50 mg PO DAILY 03/30/14 04/24/21 01/30/21 08:30 History Promethazine [Phenergan] 25 mg PO Q6H PRN 05/28/14 04/24/21 12/05/20 20:00 H istory Furosemide [Lasix] 40 mg PO DAILY 05/29/14 04/24/21 02/01/21 10:00 History levoFLOXacin [Levaquin] 250 mg PO QDAY #3 tablet 02/03/21 04/24/21 Unknown Rx Active Medications: Generic Name Dose Route Start Last Admin Trade Name Freq PRN Reason Stop Dose Admin Acetaminophen 650 mg 04/22/21 04:47 04/22/21 07:05 Acetaminophen 325 Mg Tab PO 650 mg Q4H PRN Administration Pain MILD(1-3)/Fever >100.5/LOBATO Albuterol 2.5 mg 04/22/21 04:47 Albuterol 2.5 Mg/3 Ml Nebu IH Q4HRT PRN Shortness Of Breath Lipase/Protease/Amylase 1 each 04/26/21 12:29 Lipase 10,500/Protease 25,000/Amylase 43,750 (Units) Dr Frias FEEDTUBE PRN PRN For Clogged Feeding Tube Aspirin 81 mg 04/22/21 10:00 04/26/21 11:19 Aspirin 81 Mg Tab Chew PO 81 mg DAILY JEAN-PAUL Administration Atorvastatin Calcium 40 mg 04/22/21 22:00 04/25/21 22:06 Atorvastatin 40 Mg Tab PO 40 mg QHS JEAN-PAUL Administration Clonazepam 1 mg 04/26/21 22:00 Clonazepam 2 Mg Tab PO HS JEAN-PAUL Dexamethasone 6 mg 04/23/21 10:00 04/26/21 10:57 Dexamethasone 4 Mg Tab PO 05/01/21 10:01 6 mg DAILY JEAN-PAUL Administration Dextrose 0 ml 04/26/21 09:04 Dextrose 10% *Hypoglycemia IV PRN PRN Hypoglycemia Famotidine 10 mg 04/22/21 10:00 04/25/21 22:06 Famotidine 10 Mg Tab PO 10 mg BID JEAN-PAUL Administration Furosemide 40 mg 04/22/21 10:00 04/26/21 10:59 Furosemide 40 Mg Tab PO 40 mg DAILY JEAN-PAUL Administration Heparin Sodium (Porcine) 5,000 unit 04/22/21 06:00 04/26/21 06:29 Heparin 5,000 Unit/1 Ml Vial SUB-Q 5,000 unit Q8HR JEAN-PAUL Administration Heparin Sodium (Porcine) 3,000 unit 04/22/21 22:34 Heparin 10,000 Units/10 Ml Vial IV MARYLU PRN hemodialysis Hydralazine HCl 10 mg 04/22/21 04:51 Hydralazine 20 Mg/1 Ml Inj IV Q6H PRN Blood Pressure Hydromorphone HCl 0.5 mg 04/22/21 04:47 Hydromorphone 1 Mg/1 Ml Inj IV Q3H PRN Pain , Severe (7-10) Sodium Chloride 100 mls @ 999 mls/hr 04/22/21 22:34 Nacl 0.9% IV MARYLU PRN Hypotension Dextrose/Sodium Chloride 1,000 mls @ 40 mls/hr 04/25/21 16:00 04/25/21 23:59 D5ns IV 40 mls/hr [facility] Administration Insulin Human Lispro 0 unit 04/22/21 07:30 04/25/21 23:00 Insulin Lispro 100 Unit/Ml SUB-Q Not Given ACHS [facility] Protocol Levothyroxine Sodium 88 mcg 04/22/21 06:00 04/26/21 06:36 Levothyroxine 88 Mcg Tab PO Not Given DAILY@0600 [facility] Metoprolol Tartrate 50 mg 04/22/21 10:00 04/26/21 10:58 Metoprolol Tartrate 50 Mg Tab PO 50 mg DAILY JEAN-PAUL Administration Montelukast Sodium 10 mg 04/22/21 10:00 04/26/21 11:18 Montelukast 10 Mg Tab PO 10 mg DAILY JEAN-PAUL Administration Morphine Sulfate 2 mg 04/22/21 04:47 04/23/21 19:54 Morphine 2 Mg/1 Ml Inj IV 2 mg Q4H PRN Administration Pain, Moderate (4-6) Ondansetron HCl 4 mg 04/22/21 04:47 Ondansetron 4 Mg/2 Ml Inj IV Q8H PRN Nausea And Vomiting Simple Syrup 15 ml 04/26/21 12:29 Simple Syrup 15 Ml FEEDTUBE PRN PRN Hypoglycemia Simple Syrup 30 ml 04/26/21 12:29 Simple Syrup 15 Ml FEEDTUBE PRN PRN Hypoglycemia Sodium Bicarbonate 325 mg 04/26/21 12:29 Sodium Bicarbonate 325 Mg Tab FEEDTUBE PRN PRN For Clogged Feeding Tube Sodium Chloride 10 ml 04/22/21 10:00 04/26/21 11:06 Sodium Chloride 0.9% 10 Ml Flush Syringe IV 10 ml BID JEAN-PAUL Administration Sodium Chloride 10 ml 04/22/21 04:47 Sodium Chloride 0.9% 10 Ml Flush Syringe IV PRN PRN LINE FLUSH
--- NOTE | 2021-04-26 16:52 | Vascular Lab Report ---
DUPLEX DOPPLER UPPER EXTREMITY VENOUS, RIGHT INDICATION / CLINICAL INFORMATION: RUE swelling. TECHNIQUE: Duplex doppler imaging was performed through the veins of the right upper extremity using venous compression and other maneuvers. COMPARISON: None available. FINDINGS: RIGHT INTERNAL JUGULAR VEIN: Negative. RIGHT SUBCLAVIAN VEIN: Negative. RIGHT AXILLARY VEIN: Negative. RIGHT BRACHIAL VEIN: Negative. RIGHT FOREARM VEINS: Negative. RIGHT BASILIC VEIN (SUPERFICIAL): Negative. ADDITIONAL FINDINGS: Focal occlusive superficial thrombus within the distal right cephalic vein. IMPRESSION: 1. Focal area of superficial thrombus within the distal right cephalic vein. 2. No evidence of DVT within the right upper extremity. Scribed by: Janis Bhatt RDMS, RVT Scribed: 04/26/2021 3:23 PM I have reviewed the images, agree with this report, and edited this report as needed. Signer Name: Meek Olmstead MD Signed: 04/26/2021 4:47 PM Workstation Name: [id number]
[2021-04-26] MEDS: INSULIN LISPRO 100 UNIT/ML SUB-Q SCH ×2 (20:14→20:17)
[2021-04-26] MEDS: cefTRIAXone/NS 2 GM/100 ML 2 GM/100 ML BAG IV SCH (20:15)
[2021-04-26] MEDS: FAMOTIDINE 10 MG TAB PO SCH (20:15)
--- NOTE | 2021-04-26 23:33 | XRay Report ---
ABDOMEN 1 VIEW 04/26/2021 11:10 PM INDICATION / CLINICAL INFORMATION: Dobhoff placement. COMPARISON: None available. FINDINGS: Dobbhoff tube extends within the stomach and left upper quadrant. Increased interstitial prominence a nd opacities in bilateral lungs. Signer Name: Mata Lazo MD Signed: 04/26/2021 11:29 PM Workstation Name: [id number]
[2021-04-27] MEDS: INSULIN LISPRO 100 UNIT/ML SUB-Q SCH ×5 (00:34→16:30)
[2021-04-27] MEDS: FAMOTIDINE 10 MG TAB PO SCH ×4 (00:35→23:32)
[2021-04-27] MEDS: cefTRIAXone/NS 2 GM/100 ML 2 GM/100 ML BAG IV SCH (01:28)
[2021-04-27] MEDS ORDERED: cefTRIAXone/NS 2 GM/100 ML 2 GM/100 ML BAG IV SCH (02:00)
[2021-04-27] MEDS ORDERED: LORazepam 2 MG/ML VIAL IV ONE ×4 (04:50→20:47)
[2021-04-27] MEDS: HEPARIN 5,000 UNIT/1 ML VIAL SUB-Q SCH ×3 (06:37→23:32)
[2021-04-27] MEDS: LEVOTHYROXINE 88 MCG TAB PO SCH (06:38)
--- NOTE | 2021-04-27 08:30 | Progress Note ---
Assessment and Plan 1. ESRD: Patient is on maintenance hemodialysis three times a week, TTS schedule. Last outpatient hemodialysis 04/20. Hemodialysis: 04/23, 04/25. HD today. 2. FEN: Monitor lytes and volume status. 3. Acute hypoxic resp failure, POA: 2/2 Covid-19 PNA. Supplemental O2. Per protocol. Volume control thru HD. Monitor. 4. Covid PNA, POA: Decadron. Followed by ID. 5. Hypoglycemia. 6. Anemia, POA: Epogen with HD. 7. DM type 2: Hypoglycemia. 8. Hypertension: Monitor BP. Adjust meds as needed. Subjective: Patient was seen and examined at the bedside. Examination: General appearance: well-developed, obese, appears stated age, resp distress noted, NG tube HEENT: ATNC Neck: trachea midline Respiratory: coarse breath sounds Heart: regular, S1S2, no murmur Abdomen: soft, obese, normoactive bowel sounds, not tender Integumentary: no obvious rash Neurologic: lethargic, non-verbal, not following any command Ext: no edema Hemodialysis access: L arm AVF Subjective Date of service: 04/27/21 Objective - Vital Signs Vital signs: Vital Signs - 12hr 04/26/21 04/26/21 04/26/21 20:48 22:00 22:17 Temperature 97.7 F Pulse Rate 65 Respiratory 18 Rate Blood Pressure 185/68 Blood Pressure 157/64 [Right] O2 Sat by Pulse 96 96 Oximetry 04/26/21 04/27/21 22:22 04:25 Temperature 97.3 F L Pulse Rate 61 Respiratory 18 Rate Blood Pressure 133/75 Blood Pressure [Right] O2 Sat by Pulse 98 92 Oximetry - Lab 04/28/21 10:40 04/28/21 04:00 Most recent lab results Calcium 10.7 mg/dL (8.4-10.2) H 04/26/21 05:33 Phosphorus 6.30 mg/dL (2.5-4.5) H 04/23/21 04:00 Magnesium 2.40 mg/dL (1.7-2.3) H 04/23/21 04:00 Medications & Allergies - Medications Allergies/Adverse Reactions: Allergies celecoxib Allergy (Verified 04/22/21 00:07) Unknown Sulfa (Sulfonamide Antibiotics) Adverse Reaction (Verified 04/22/21 00:07) Nausea Home Medications: Home Medications Medication Instructions Recorded Confirmed Last Taken Type Albuterol Mdi (or & Nicu Only) 2 puff IH QID PRN #1 inhalation 03/30/14 04/24/21 12/05/20 20:00 Rx [ProAir HFA Inhaler] Aspirin [Aspirin BABY CHEW TAB] 81 mg PO DAILY 03/30/14 04/24/21 01/30/21 08:40 History Febuxostat [Uloric] 80 mg PO DAILY 03/30/14 04/24/21 12/05/20 20:00 History Levothyroxine [Synthroid] 88 mcg PO DAILY 03/30/14 04/24/21 01/30/21 06:30 History Metoprolol [Lopressor TAB] 50 mg PO DAILY 03/30/14 04/24/21 02/01/21 10:00 History Montelukast [Singulair] 10 mg PO DAILY 03/30/14 04/24/21 02/01/21 10:00 History Quetiapine Fumarate [QUEtiapine 300 mg PO DAILY 03/30/14 04/24/21 01/30/21 21:00 History Fumarate] Rosuvastatin (Nf) [Crestor] 20 mg PO DAILY 03/30/14 04/24/21 12/05/20 20:00 History clonazePAM 2 mg PO HS 03/30/14 04/24/21 01/31/21 23:00 History sitaGLIPtin [Januvia] 50 mg PO DAILY 03/30/14 04/24/21 01/30/21 08:30 History Promethazine [Phenergan] 25 mg PO Q6H PRN 05/28/14 04/24/21 12/05/20 20:00 History Furosemide [Lasix] 40 mg PO DAILY 05/29/14 04/24/21 02/01/21 10:00 History levoFLOXacin [Levaquin] 250 mg PO QDAY #3 tablet 02/03/21 04/24/21 Unknown Rx Active Medications: Generic Name Dose Route Start Last Admin Trade Name Freq PRN Reason Stop Dose Admin Acetaminophen 650 mg 04/22/21 04:47 04/22/21 07:05 Acetaminophen 325 Mg Tab PO 650 mg Q4H PRN Administration Pain MILD(1-3)/Fever >100.5/LOBATO Albuterol 2.5 mg 04/22/21 04:47 Albuterol 2.5 Mg/3 Ml Nebu IH Q4HRT PRN Shortness Of Breath Lipase/Protease/Amylase 1 each 04/26/21 12:29 Lipase 10,500/Protease 25,000/Amylase 43,750 (Units) Dr Frias FEEDTUBE PRN PRN For Clogged Feeding Tube Aspirin 81 mg 04/22/21 10:00 04/26/21 11:19 Aspirin 81 Mg Tab Chew PO 81 mg DAILY JEAN-PAUL Administration Atorvastatin Calcium 40 mg 04/22/21 22:00 04/27/21 00:36 Atorvastatin 40 Mg Tab PO 40 mg QHS JEAN-PAUL Administration Clonazepam 1 mg 04/26/21 22:00 04/27/21 00:37 Clonazepam 2 Mg Tab PO 1 mg HS JEAN-PAUL Administration Dexamethasone 6 mg 04/23/21 10:00 04/26/21 10:57 Dexamethasone 4 Mg Tab PO 05/01/21 10:01 6 mg DAILY JEAN-PAUL Administration Dextrose 0 ml 04/26/21 09:04 Dextrose 10% *Hypoglycemia IV PRN PRN Hypoglycemia Famotidine 10 mg 04/22/21 10:00 04/27/21 00:36 Famotidine 10 Mg Tab PO 10 mg BID JEAN-PAUL Administration Furosemide 40 mg 04/22/21 10:00 04/26/21 10:59 Furosemide 40 Mg Tab PO 40 mg DAILY JEAN-PAUL Administration Heparin Sodium (Porcine) 5,000 unit 04/22/21 06:00 04/27/21 06:37 Heparin 5,000 Unit/1 Ml Vial SUB-Q 5,000 unit Q8HR JEAN-PAUL Administration Heparin Sodium (Porcine) 3,000 unit 04/22/21 22:34 Heparin 10,000 Units/10 Ml Vial IV MARYLU PRN hemodialysis Hydralazine HCl 10 mg 04/22/21 04:51 Hydralazine 20 Mg/1 Ml Inj IV Q6H PRN Blood Pressure Hydromorphone HCl 0.5 mg 04/22/21 04:47 Hydromorphone 1 Mg/1 Ml Inj IV Q3H PRN Pain , Severe (7-10) Sodium Chloride 100 mls @ 999 mls/hr 04/22/21 22:34 Nacl 0.9% IV MARYLU PRN Hypotension Dextrose/Sodium Chloride 1,000 mls @ 40 mls/hr 04/25/21 16:00 04/25/21 23:59 D5ns IV 40 mls/hr DIRECT JEAN-PAUL Administration Insulin Human Lispro 0 unit 04/22/21 07:30 04/27/21 00:34 Insulin Lispro 100 Unit/Ml SUB-Q Not Given ACHS [facility] Protocol Levothyroxine Sodium 88 mcg 04/22/21 06:00 04/27/21 06:38 Levothyroxine 88 Mcg Tab PO 88 mcg DAILY@0600 JEAN-PAUL Administration Metoprolol Tartrate 50 mg 04/22/21 10:00 04/26/21 10:58 Metoprolol Tartrate 50 Mg Tab PO 50 mg DAILY JEAN-PAUL Administration Montelukast Sodium 10 mg 04/22/21 10:00 04/26/21 11:18 Montelukast 10 Mg Tab PO 10 mg DAILY JEAN-PAUL Administration Morphine Sulfate 2 mg 04/22/21 04:47 04/23/21 19:54 Morphine 2 Mg/1 Ml Inj IV 2 mg Q4H PRN Administration Pain, Moderate (4-6) Ondansetron HCl 4 mg 04/22/21 04:47 Ondansetron 4 Mg/2 Ml Inj IV Q8H PRN Nausea And Vomiting Simple Syrup 15 ml 04/26/21 12:29 Simple Syrup 15 Ml FEEDTUBE PRN PRN Hypoglycemia Simple Syrup 30 ml 04/26/21 12:29 Simple Syrup 15 Ml FEEDTUBE PRN PRN Hypoglycemia Sodium Bicarbonate 325 mg 04/26/21 12:29 Sodium Bicarbonate 325 Mg Tab FEEDTUBE PRN PRN For Clogged Feeding Tube Sodium Chloride 10 ml 04/22/21 10:00 04/27/21 00:37 Sodium Chloride 0.9% 10 Ml Flush Syringe IV 10 ml BID JEAN-PAUL Administration Sodium Chloride 10 ml 04/22/21 04:47 Sodium Chloride 0.9% 10 Ml Flush Syringe IV PRN PRN LINE FLUSH
--- NOTE | 2021-04-27 08:40 | Progress Note ---
Assessment and Plan Assessment and plan: #Acute hypoxic respiratory failure-improving #COVID-19 infection/pneumonia -Currently on 4 L, will wean as tolerated -Continuous pulse oximetry -Continue steroids; not candidate for remdesivir due to ESRD -s/p abx for CAP coverage #ESRD requiring HD -On HD TTS schedule -Nephrology following, assistance appreciated #Superficial thrombus of right cephalic vein -Seen on right upper extremity Doppler -supportive care, will reassess daily -elevation of extremity, warm compress #Hypertension -Continue metoprolol at current dose -IV hydralazine as needed #Elevated D-dimer -VQ scan low probability for PE -No evidence of DVT in the right upper extremity #Acute encephalopathy #History of CVA -Continue aspirin and Crestor -CT head on admission negative for acute findings -MRI ordered -Neurology consulted, assistance appreciated #Hypoglycemia -Patient refusing to eat; speech therapy evaluation ordered -dobhoff placed, infusing #Anemia -Likely secondary to ESRD -Epogen with HD -Transfuse for hemoglobin less than 7 Disposition Plan: continue medical management History Interval history: Patient restless. Responds to name. D10 infusion and TF running. Hospitalist Physical - Physical exam Narrative exam: GENERAL: Well-developed well-nourished. In bed, no acute distress. HEENT: Nasal cannula at 4 L/min CHEST/LUNGS: Coarse breath sounds bilaterally HEART/CARDIOVASCULAR: RRR. No murmur, rubs or gallops appreciated. ABDOMEN: +BS. NT/ND. NEURO: Does not follow commands. EXTREMITIES: RUE edematous. PSYCH: Alert to person. - Constitutional Vitals: Temp Pulse Resp BP Pulse Ox 97.3 F L 61 18 133/75 92 04/27/21 04:25 04/27/21 04:25 04/27/21 04:25 04/27/21 04:25 04/27/21 04:25 General appearance: Present: no acute distress, well-nourished Results - Labs CBC & Chem 7: 04/22/21 00:23 04/26/21 05:33 Labs: Laboratory Last Values WBC 8.4 K/mm3 (4.5-11.0) 04/23/21 02:20 RBC 3.47 M/mm3 (3.65-5.03) L 04/23/21 02:20 Hgb 10.1 gm/dl (10.1-14.3) 04/23/21 02:20 Hct 32.1 % (30.3-42.9) 04/23/21 02:20 MCV 92 fl (79-97) 04/23/21 02:20 MCH 29 pg (28-32) 04/23/21 02:20 MCHC 32 % (30-34) 04/23/21 02:20 RDW 16.9 % (13.2-15.2) H 04/23/21 02:20 Plt Count 178 K/mm3 (140-440) 04/23/21 02:20 Lymph % (Auto) 9.5 % (13.4-35.0) L 04/23/21 02:20 [place] % (Auto) 5.6 % (0.0-7.3) 04/23/21 02:20 Eos % (Auto) 0.0 % (0.0-4.3) 04/23/21 02:20 Baso % (Auto) 0.2 % (0.0-1.8) 04/23/21 02:20 Lymph # (Auto) 0.8 K/mm3 (1.2-5.4) L 04/23/21 02:20 [place] # (Auto) 0.5 K/mm3 (0.0-0.8) 04/23/21 02:20 Eos # (Auto) 0.0 K/mm3 (0.0-0.4) 04/23/21 02:20 Baso # (Auto) 0.0 K/mm3 (0.0-0.1) 04/23/21 02:20 Seg Neutrophils % 84.7 % (40.0-70.0) H 04/23/21 02:20 Seg Neutrophils # 7.1 K/mm3 (1.8-7.7) 04/23/21 02:20 D-Dimer 3799.32 ng/mlDDU (0-234) H 04/25/21 09:43 Sodium 141 mmol/L (137-145) D 04/26/21 05:33 Potassium 4.1 mmol/L (3.6-5.0) 04/26/21 05:33 Chloride 95.4 mmol/L (98-107) L 04/26/21 05:33 Carbon Dioxide 24 mmol/L (22-30) 04/26/21 05:33 Anion Gap 26 mmol/L 04/26/21 05:33 BUN 43 mg/dL (7-17) H 04/26/21 05:33 Creatinine 6.9 mg/dL (0.6-1.2) H 04/26/21 05:33 Estimated GFR 7 ml/min 04/26/21 05:33 BUN/Creatinine Ratio 6 % 04/26/21 05:33 Glucose 118 mg/dL (65-100) H 04/26/21 05:33 POC Glucose 175 mg/dL (70-105) H 04/27/21 07:55 Lactic Acid 0.60 mmol/L (0.7-2.0) L 04/22/21 05:26 Calcium 10.7 mg/dL (8.4-10.2) H 04/26/21 05:33 Phosphorus 6.30 mg/dL (2.5-4.5) H 04/23/21 04:00 Magnesium 2.40 mg/dL (1.7-2.3) H 04/23/21 04:00 Ferritin 7666.0 ng/mL (10.0-200.0) H 04/25/21 09:43 Total Bilirubin 0.40 mg/dL (0.1-1.2) 04/22/21 00:23 AST 35 units/L (5-40) 04/22/21 00:23 ALT 16 units/L (7-56) 04/22/21 00:23 Alkaline Phosphatase 49 units/L (35-129) 04/22/21 00:23 Lactate Dehydrogenase 493 units/L (91-180) H 04/22/21 00:23 C-Reactive Protein 34.10 mg/dL (0.00-1.30) H 04/25/21 09:43 Total Protein 6.3 g/dL (6.3-8.2) 04/22/21 00:23 Albumin 3.0 g/dL (3.9-5) L 04/22/21 00:23 Albumin/Globulin Ratio 0.9 % 04/22/21 00:23 Procalcitonin 3.90 ng/mL (<0.15) 04/22/21 00:23 Nasal Screen MRSA (PCR) Negative (Negative) 04/25/21 Unknown Coronavirus (PCR) Positive (Negative) A 04/22/21 10:36 Hepatitis A IgM Ab Non-reactive (NonReactive) 04/23/21 01:13 Hep Bs Antigen Non-reactive (Negative) 04/23/21 01:13 Hep B Core IgM Ab Non-reactive (NonReactive) 04/23/21 01:13 Hepatitis C Antibody Non-reactive (NonReactive) 04/23/21 01:13 Microbiology: Microbiology 04/22/21 00:23 Peripheral/Venous Blood Culture - Final NO GROWTH AFTER 5 DAYS 04/22/21 00:28 Peripheral/Venous Blood Culture - Final NO GROWTH AFTER 5 DAYS [place]/IV: Voiding Method Incontinent Active Medications - Current Medications Current Medications: Generic Name Dose Route Start Last Admin Trade Name Freq PRN Reason Stop Dose Admin Acetaminophen 650 mg 04/22/21 04:47 04/22/21 07:05 Acetaminophen 325 Mg Tab PO 650 mg Q4H PRN Administration Pain MILD(1-3)/Fever >100.5/LOBATO Albuterol 2.5 mg 04/22/21 04:47 Albuterol 2.5 Mg/3 Ml Nebu IH Q4HRT PRN Shortness Of Breath Lipase/Protease/Amylase 1 each 04/26/21 12:29 Lipase 10,500/Protease 25,000/Amylase 43,750 (Units) Dr Frias FEEDTUBE PRN PRN For Clogged Feeding Tube Aspirin 81 mg 04/22/21 10:00 04/26/21 11:19 Aspirin 81 Mg Tab Chew PO 81 mg DAILY JEAN-PAUL Administration Atorvastatin Calcium 40 mg 04/22/21 22:00 04/27/21 00:36 Atorvastatin 40 Mg Tab PO 40 mg QHS JEAN-PAUL Administration Clonazepam 1 mg 04/26/21 22:00 04/27/21 00:37 Clonazepam 2 Mg Tab PO 1 mg HS JEAN-PAUL Administration Dexamethasone 6 mg 04/23/21 10:00 04/26/21 10:57 Dexamethasone 4 Mg Tab PO 05/01/21 10:01 6 mg DAILY JEAN-PAUL Administration Dextrose 0 ml 04/26/21 09:04 Dextrose 10% *Hypoglycemia IV PRN PRN Hypoglycemia Famotidine 10 mg 04/22/21 10:00 04/27/21 00:36 Famotidine 10 Mg Tab PO 10 mg BID JEAN-PAUL Administration Furosemide 40 mg 04/22/21 10:00 04/26/21 10:59 Furosemide 40 Mg Tab PO 40 mg DAILY JEAN-PAUL Administration Heparin Sodium (Porcine) 5,000 unit 04/22/21 06:00 04/27/21 06:37 Heparin 5,000 Unit/1 Ml Vial SUB-Q 5,000 unit Q8HR JEAN-PAUL Administration Heparin Sodium (Porcine) 3,000 unit 04/22/21 22:34 Heparin 10,000 Units/10 Ml Vial IV MARYLU PRN hemodialysis Hydralazine HCl 10 mg 04/22/21 04:51 Hydralazine 20 Mg/1 Ml Inj IV Q6H PRN Blood Pressure Hydromorphone HCl 0.5 mg 04/22/21 04:47 Hydromorphone 1 Mg/1 Ml Inj IV Q3H PRN Pain , Severe (7-10) Sodium Chloride 100 mls @ 999 mls/hr 04/22/21 22:34 Nacl 0.9% IV MARYLU PRN Hypotension Dextrose/Sodium Chloride 1,000 mls @ 40 mls/hr 04/25/21 16:00 04/25/21 23:59 D5ns IV 40 mls/hr DIRECT JEAN-PAUL Administration Insulin Human Lispro 0 unit 04/22/21 07:30 04/27/21 00:34 Insulin Lispro 100 Unit/Ml SUB-Q Not Given ACHS [facility] Protocol Levothyroxine Sodium 88 mcg 04/22/21 06:00 04/27/21 06:38 Levothyroxine 88 Mcg Tab PO 88 mcg DAILY@0600 JEAN-PAUL Administration Metoprolol Tartrate 50 mg 04/22/21 10:00 04/26/21 10:58 Metoprolol Tartrate 50 Mg Tab PO 50 mg DAILY JEAN-PAUL Administration Montelukast Sodium 10 mg 04/22/21 10:00 04/26/21 11:18 Montelukast 10 Mg Tab PO 10 mg DAILY JEAN-PAUL Administration Morphine Sulfate 2 mg 04/22/21 04:47 04/23/21 19:54 Morphine 2 Mg/1 Ml Inj IV 2 mg Q4H PRN Administration Pain, Moderate (4-6) Ondansetron HCl 4 mg 04/22/21 04:47 Ondansetron 4 Mg/2 Ml Inj IV Q8H PRN Nausea And Vomiting Simple Syrup 15 ml 04/26/21 12:29 Simple Syrup 15 Ml FEEDTUBE PRN PRN Hypoglycemia Simple Syrup 30 ml 04/26/21 12:29 Simple Syrup 15 Ml FEEDTUBE PRN PRN Hypoglycemia Sodium Bicarbonate 325 mg 04/26/21 12:29 Sodium Bicarbonate 325 Mg Tab FEEDTUBE PRN PRN For Clogged Feeding Tube Sodium Chloride 10 ml 04/22/21 10:00 04/27/21 00:37 Sodium Chloride 0.9% 10 Ml Flush Syringe IV 10 ml BID JEAN-PAUL Administration Sodium Chloride 10 ml 04/22/21 04:47 Sodium Chloride 0.9% 10 Ml Flush Syringe IV PRN PRN LINE FLUSH Nutrition/Malnutrition Assess - Dietary Evaluation Nutrition/Malnutrition Findings: Nutrition Notes Start: 04/22/21 10:50 Freq: Status: Active Protocol: Document 04/26/21 15:16 RAFI (Rec: 04/26/21 15:25 RAFI [id number]) Nutrition Notes Initial or Follow up Brief Note Current Diagnosis CKD (stage V CKD),Coronary Artery Disease,Diabetes, Hypertension,Respiratory Failure,Hyperlipidemia Other Pertinent Diagnosis COVID-19, Pneumonia, Vascular Dementia. Current Diet Cardiac/Consistent Carbohydrates Diet (since B ). Height 5 ft 2 in Weight 69 kg [place] Body Weight (kg) 50.00 BMI 27.8 Weight change and time frame 0.853 Kg body weight loss in 4 days reported. Subjective/Other Information RD consult for routine F/U on diet education. Pt has COVID-19, not a candidate for Nutrition Education at the time, will assess feasibility on F/U. Pt's PO intake of meals has been Neglible (0%), according to ADL notes. Percent of energy/protein needs met: Prescribed Cardiac/Consistent Carbohydrates Diet provides for energy/protein needs (1, 977 Kcal/86 g) during LOS. Nutrition Intervention Follow-Up By: 04/29/21 Additional Comments Continue monitoring food tolerance, %PO intake of meals , and BM.
[2021-04-27] MEDS: DEXAMETHASONE 4 MG TAB PO SCH (12:42)
[2021-04-27] MEDS: MONTELUKAST 10 MG TAB PO SCH (12:42)
[2021-04-27] MEDS: FUROSEMIDE 40 MG TAB PO SCH (12:43)
[2021-04-27] MEDS: ASPIRIN 81 MG TAB CHEW PO SCH (12:44)
[2021-04-27] MEDS: METOPROLOL TARTRATE 50 MG TAB PO SCH (12:44)
--- NOTE | 2021-04-27 15:02 | Magnetic Resonance Report ---
MR brain wo con INDICATION / CLINICAL INFORMATION: 80 years Female; CVA. TECHNIQUE: Multiplanar, multisequence MR images of the brain were obtained. COMPARISON: None available. FINDINGS: BRAIN / INTRACRANIAL CONTENTS: The motion degrades the image quality despite using the fast acquisiti on sequences. However, there are mild periventricular white matter changes most consistent with age-a ppropriate microvascular angiopathy. The diffusion imaging reveals no evidence of acute infarction. T he ventricular system is within normal limits in size and configuration. No extra-axial fluid collect ions or significant mass effect is identified. CRANIOCERVICAL JUNCTION: The sagittal imaging is of limited diagnostic quality. The craniocervical ju nction appears unremarkable on the remaining sequences. 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 Otherwise, the vascular structures grossly demonstrate appropriate signal voi ds. ORBITS: No significant abnormality of visualized orbits. SINUSES / MASTOIDS: There is mild mucosal thickening within the right ethmoid air cells. ADDITIONAL FINDINGS: None. IMPRESSION: 1. The study is limited by motion. However, the MRI the brain appears unremarkable for age without ev idence of acute infarction. Signer Name: Matt aMn MD Signed: 04/27/2021 2:57 PM Workstation Name: [id number]
[2021-04-27 20:17] LABS: ABG Base Excess -2.3 mmol/L (-2.0-3.0); ABG HCO3 22.1 mmol/L (20.0-26.0); ABG Methemoglobin 0.5 % (0.0-1.5); ABG PCO2 36.7 mm Hg; ABG PH 7.398 pH Units (7.350-7.450); ABG PO2 109.6 mm Hg (80.0-90.0)
--- NOTE | 2021-04-27 20:55 | Procedure Note ---
Pre-op diagnosis: Acute hypoxemic respiratory failure, coronavirus infection Post-op diagnosis: same Procedure: Right femoral vein triple-lumen catheter insertion under ultrasound guidance The patient was prepped and draped in the usual sterile fashion. A timeout was taken with nurse at bedside to verify the correct patient, procedure, and operative site. Local anesthesia obtained with 1% lidocaine. The Seldinger technique was utilized to access the right femoral vein under ultrasound guidance. Under ultrasound guidance a seeker needle was advanced into the right femoral vein without difficulty. A guidewire was then advanced through the seeker needle into the right femoral vein and the seeker needle removed over the guidewire. A scalpel was used to incise the skin. A dilator was then passed over the guidewire into the right femoral vein and subsequently removed. A preflush triple-lumen catheter was then advanced into the right femoral vein without difficulty. All 3 ports flush and drawl with ease. 3-year-old nylon suture was utilized to secure the line in place. A Biopatch was placed at the insertion site. Estimated blood loss minimal. Complications none. Anesthesia: local Surgeon: ANNA LPOEZ Estimated blood loss: minimal Pathology: none Condition: critical Disposition: ICU
--- NOTE | 2021-04-27 20:57 | Event Note ---
A code met was called. I presented to the bedside and the patient was found to be in respiratory distress. The patient underwent arterial blood gas evaluation. The patient was found to have acute hypoxemic respiratory failure with a pulse oximetry in the 60s. The patient was deemed unable to protect her airway. The patient was preoxygenated by [id number] to his achieve optimal pulse oximetry. A glide scope was utilized and a size 8 ET tube was advanced into the airway. Patient successfully intubated. Patient transferred to ICU.
--- NOTE | 2021-04-27 20:58 | Event Note ---
A code met was called. I presented to the bedside and the patient was found to be in acute hypoxemic respiratory failure. Advanced care planning conducted. Patient family notified and informed of patient status. Patient was treated initially with high flow supplemental oxygen without improvement in pulse oximetry. The patient was ultimately placed on noninvasive positive pressure ventilation without improvement in symptoms. Patient family informed of patient prognosis and diagnosis and requested invasive airway management. 90 minutes critical care time dedicated to patient care and bedside management.
[2021-04-27] MEDS ORDERED: LIP THERAPY VASELINE TP PRN (22:36)
[2021-04-27] MEDS ORDERED: MINERAL OIL/PETROLATUM, WHITE OPHTH OINT 3.5 GM OU PRN (22:36)
--- NOTE | 2021-04-27 23:12 | XRay Report ---
CHEST 1 VIEW 04/27/2021 10:54 PM INDICATION / CLINICAL INFORMATION: ETT placement. COMPARISON: None available. FINDINGS: SUPPORT DEVICES: ET tube is at the level of [place] and should be pulled back 1 to 2 cm. The distal ti p of the NG tube is not well seen. HEART / MEDIASTINUM: No significant abnormality. LUNGS / PLEURA: Increased interstitial prominence with interstitial opacities in bilateral lungs No p neumothorax. Signer Name: Mata Lazo MD Signed: 04/27/2021 11:08 PM Workstation Name: [id number]
[2021-04-28] MEDS: INSULIN LISPRO 100 UNIT/ML SUB-Q SCH ×4 (00:13→18:44)
[2021-04-28 03:12] LABS: ABG Base Excess 1.9 mmol/L (-2.0-3.0); ABG HCO3 25.9 mmol/L (20.0-26.0); ABG Methemoglobin 0.5 % (0.0-1.5); ABG Oxygen Saturation 96.3 % (95.0-99.0); ABG PH 7.453 pH Units (7.350-7.450); ABG PO2 71.1 mm Hg (80.0-90.0)
[2021-04-28] MEDS: HEPARIN 5,000 UNIT/1 ML VIAL SUB-Q SCH ×3 (06:09→23:06)
[2021-04-28] MEDS: LEVOTHYROXINE 88 MCG TAB PO SCH (07:52)
--- NOTE | 2021-04-28 08:37 | XRay Report ---
CHEST 1 VIEW INDICATION / CLINICAL INFORMATION: ETT placement. COMPARISON: One day prior FINDINGS: SUPPORT DEVICES: Endotracheal tube is noted low lying within the trachea at the level of the [place] n ear the right mainstem bronchus. Similar appearance to reference exam from yesterday. HEART / MEDIASTINUM: Stable. LUNGS / PLEURA: No significant interval change in severity or distribution of airspace opacitities. N o pneumothorax. ADDITIONAL FINDINGS: No significant additional findings. IMPRESSION: Low-lying endotracheal tube with tip at the level of the [place] near the right mainstem bronchus. Oth erwise, no change. Signer Name: Sarbjit Keating MD Signed: 04/28/2021 8:32 AM Workstation Name: [id number]
[2021-04-28] MEDS: FUROSEMIDE 40 MG TAB PO SCH (09:39)
[2021-04-28] MEDS: SENNOSIDES/DOCUSATE SODIUM 8.6/50 MG TAB FEEDTUBE SCH ×2 (09:39→23:06)
[2021-04-28] MEDS: DEXAMETHASONE 4 MG TAB PO SCH (09:39)
[2021-04-28] MEDS: METOPROLOL TARTRATE 50 MG TAB PO SCH (09:39)
[2021-04-28] MEDS: ASPIRIN 81 MG TAB CHEW PO SCH (09:39)
[2021-04-28] MEDS ORDERED: FAMOTIDINE 20 MG/2 ML INJ IV SCH (10:00)
[2021-04-28] MEDS ORDERED: DEXTROSE 50% IN WATER (25GM) 50 ML SYRINGE IV PRN (10:28)
--- NOTE | 2021-04-28 10:32 | Progress Note ---
<NILSON RDZ - Last Filed: 04/28/21 18:06> Assessment and Plan Assessment and plan: This is a 80- year- female with past medical history of ESRD on HD, HTN, Dementia, DM, and CAD s/p X2 stents initially admitted on the floor for acute hypoxic respiratory failure 2/2 COVID pneumonia, transfer in the ICU for respiratory distress and worsen hypoxia now on ventilatory support. Hospital Course to Date: 04/28: Code met overnight for respiratory distress s/p intubation. Patient very restless on propofol gtt, move all extremities not following any commands. Titrate sedation for RASS of 0 to -2. Patient is stable on the vent SPO2 at 98% this am, wean FiO2 as tolerated for SPO2 goal above 92%. Assessment and Plan #Acute hypoxic respiratory failure #COVID-19 infection/pneumonia - Was initially on 4LNC on the floor - 04/27 Code met and intubated for worsen hypoxia and respiratory distress - Vent Setting: PRVC- 50%,6,20,450 - This am ABG and CXR reviewed - CCM on consult, appreciate recommnedations - Continue steroids; not candidate for remdesivir due to ESRD - Completed IV Abx course - ID is following #Supraventricular Tachycardia (SVT)-resolved #Hypertension - Short runs of SVT during code met, HR [id number] - Probably secondary to respiratory distress/hypoxia - SR/ST this am, HR 90 to 100 - BP stable - Continue metoprolol at current dose - IV hydralazine as needed for SBP above 160 #ESRD on HD - On HD TTS schedule - Nephrology following, assistance appreciated - Continue HD per Nephro - Strict intake and output - Avoid nephrotoxic medications; Renally dose medications - Monitor and replace electrolytes as needed #Superficial thrombus of right cephalic vein #Elevated D-dimer - Right upper extremity Doppler + Superficial thrombus of right cephalic vein - VQ scan low probability for PE - Bilateral Lower extremities doppler with no evidence of DVT - Elevation of extremity, warm compress - Continue AC- heparin SubQ - SCDs to bilateral lower extremities while in bed #Acute encephalopathy #History of CVA - Unchanged. Restless not following commands - Now on Intubated and sedated on propofol - CT head on admission negative for acute findings - MRI also noted with no acute abnormality - Neurology consulted, assistance appreciated - Titrate Sedation for RASS goal 0 to -2 - Continue aspirin and Crestor - On Klonopin per Neuro #Hyperglycemia #Hypoglycemia-resolved - Continue SSI Q6hrs - Avoid hypoglycemia - Hypoglycemic protocol #Anemia - Likely secondary to ESRD - H&H stable - Epogen with HD - Transfuse for hemoglobin less than 7 The high probability of a clinically significant, sudden or life threatening deterioration of the [multiple] system(s) required my full and direct attention, intervention and personal management. The aggregate critical care time was [60] minutes. This time is in addition to time spent performing reported procedures but includes the following: [x] Data Review and interpretation [x] Patient assessment and monitoring of vital signs [x] Documentation [x] Medication orders and management Disposition Plan: ICU Total Time Spent with Patient (Minutes): 60 History Interval history: Patient seen and examined at the bedside. Code met overnight was intubated for respiratory distress. Patient is on the vent and sedated, very restless moving all extremities however not following any commands. Hospitalist Physical - Constitutional Vitals: Temp Pulse Resp BP Pulse Ox 98.5 F 105 H 22 145/73 95 04/28/21 08:00 04/28/21 09:39 04/28/21 09:30 04/28/21 09:39 04/28/21 09:30 General appearance: Present: no acute distress, well-nourished, other (Intubated and sedated) - EENT Eyes: Present: PERRL - Respiratory Respiratory effort: normal Respiratory: bilateral: rhonchi - Cardiovascular Rhythm: regular Heart Sounds: Present: S1 & S2 - Extremities Extremities: no ischemia, pulses intact, pulses symmetrical Extremity abnormal: edema - Peripheral Assessment Generalized Edema Type: Non-pitting Edema Degree: 1+ Capillary Refill: < 3 seconds Skin Temperature: Warm Peripheral Pulses: within normal limits - Abdominal General gastrointestinal: soft, non-distended, normal bowel sounds - Integumentary Integumentary: Present: warm, dry - Psychiatric Psychiatric: other (Intubated and sedated, restless and not following commands) - Neurologic Neurologic: moves all extremities, other (Intubated and sedated, restless and not following commands) - Allied Health Allied health notes reviewed: nursing Results - Labs CBC & Chem 7: 04/28/21 10:40 04/28/21 04:00 Labs: Laboratory Last Values WBC 8.4 K/mm3 (4.5-11.0) 04/23/21 02:20 RBC 3.47 M/mm3 (3.65-5.03) L 04/23/21 02:20 Hgb 10.1 gm/dl (10.1-14.3) 04/23/21 02:20 Hct 32.1 % (30.3-42.9) 04/23/21 02:20 MCV 92 fl (79-97) 04/23/21 02:20 MCH 29 pg (28-32) 04/23/21 02:20 MCHC 32 % (30-34) 04/23/21 02:20 RDW 16.9 % (13.2-15.2) H 04/23/21 02:20 Plt Count 178 K/mm3 (140-440) 04/23/21 02:20 Lymph % (Auto) 9.5 % (13.4-35.0) L 04/23/21 02:20 Morris % (Auto) 5.6 % (0.0-7.3) 04/23/21 02:20 Eos % (Auto) 0.0 % (0.0-4.3) 04/23/21 02:20 Baso % (Auto) 0.2 % (0.0-1.8) 04/23/21 02:20 Lymph # (Auto) 0.8 K/mm3 (1.2-5.4) L 04/23/21 02:20 Morris # (Auto) 0.5 K/mm3 (0.0-0.8) 04/23/21 02:20 Eos # (Auto) 0.0 K/mm3 (0.0-0.4) 04/23/21 02:20 Baso # (Auto) 0.0 K/mm3 (0.0-0.1) 04/23/21 02:20 Seg Neutrophils % 84.7 % (40.0-70.0) H 04/23/21 02:20 Seg Neutrophils # 7.1 K/mm3 (1.8-7.7) 04/23/21 02:20 D-Dimer 3799.32 ng/mlDDU (0-234) H 04/25/21 09:43 ABG pH 7.453 pH Units (7.350-7.450) H 04/28/21 02:51 ABG pCO2 38.0 mm Hg 04/28/21 02:51 ABG pO2 71.1 mm Hg (80.0-90.0) L 04/28/21 02:51 ABG HCO3 25.9 mmol/L (20.0-26.0) 04/28/21 02:51 ABG O2 Saturation 96.3 % (95.0-99.0) 04/28/21 02:51 ABG O2 Content 11.7 (0.0-44) 04/28/21 02:51 ABG Base Excess 1.9 mmol/L (-2.0-3.0) 04/28/21 02:51 ABG Hemoglobin 8.7 gm/dl (12.0-16.0) L 04/28/21 02:51 ABG Carboxyhemoglobin 1.3 % (0.0-5.0) 04/28/21 02:51 ABG Methemoglobin 0.5 % (0.0-1.5) 04/28/21 02:51 Oxyhemoglobin 94.6 % (95.0-99.0) L 04/28/21 02:51 FiO2 60 % 04/28/21 02:51 Sodium 137 mmol/L (137-145) 04/28/21 04:00 Potassium 4.6 mmol/L (3.6-5.0) 04/28/21 04:00 Chloride 92.3 mmol/L (98-107) L 04/28/21 04:00 Carbon Dioxide 24 mmol/L (22-30) 04/28/21 04:00 Anion Gap 25 mmol/L 04/28/21 04:00 BUN 65 mg/dL (7-17) H 04/28/21 04:00 Creatinine 8.5 mg/dL (0.6-1.2) H 04/28/21 04:00 Estimated GFR 5 ml/min 04/28/21 04:00 BUN/Creatinine Ratio 8 % 04/28/21 04:00 Glucose 277 mg/dL (65-100) H 04/28/21 04:00 POC Glucose 220 mg/dL (70-105) H 04/28/21 06:03 Lactic Acid 0.60 mmol/L (0.7-2.0) L 04/22/21 05:26 Calcium 11.0 mg/dL (8.4-10.2) H 04/28/21 04:00 Phosphorus 6.30 mg/dL (2.5-4.5) H 04/23/21 04:00 Magnesium 2.40 mg/dL (1.7-2.3) H 04/23/21 04:00 Ferritin 7666.0 ng/mL (10.0-200.0) H 04/25/21 09:43 Total Bilirubin 0.40 mg/dL (0.1-1.2) 04/22/21 00:23 AST 35 units/L (5-40) 04/22/21 00:23 ALT 16 units/L (7-56) 04/22/21 00:23 Alkaline Phosphatase 49 units/L (35-129) 04/22/21 00:23 Ammonia 16.0 umol/L (25-60) L 04/28/21 04:00 Lactate Dehydrogenase 493 units/L (91-180) H 04/22/21 00:23 C-Reactive Protein 34.10 mg/dL (0.00-1.30) H 04/25/21 09:43 Total Protein 6.3 g/dL (6.3-8.2) 04/22/21 00:23 Albumin 3.0 g/dL (3.9-5) L 04/22/21 00:23 Albumin/Globulin Ratio 0.9 % 04/22/21 00:23 Procalcitonin 3.90 ng/mL (<0.15) 04/22/21 00:23 Nasal Screen MRSA (PCR) Negative (Negative) 04/25/21 Unknown Coronavirus (PCR) Positive (Negative) A 04/22/21 10:36 Hepatitis A IgM Ab Non-reactive (NonReactive) 04/23/21 01:13 Hep Bs Antigen Non-reactive (Negative) 04/23/21 01:13 Hep B Core IgM Ab Non-reactive (NonReactive) 04/23/21 01:13 Hepatitis C Antibody Non-reactive (NonReactive) 04/23/21 01:13 Delacruz/IV: Voiding Method Incontinent Active Medications - Current Medications Current Medications: Generic Name Dose Route Start Last Admin Trade Name Freq PRN Reason Stop Dose Admin Acetaminophen 650 mg 04/22/21 04:47 04/22/21 07:05 Acetaminophen 325 Mg Tab PO 650 mg Q4H PRN Administration Pain MILD(1-3)/Fever >100.5/LOBATO Albuterol 2.5 mg 04/22/21 04:47 Albuterol 2.5 Mg/3 Ml Nebu IH Q4HRT PRN Shortness Of Breath Lipase/Protease/Amylase 1 each 04/26/21 12:29 Lipase 10,500/Protease 25,000/Amylase 43,750 (Units) Dr Frias FEEDTUBE PRN PRN For Clogged Feeding Tube Aspirin 81 mg 04/22/21 10:00 04/28/21 09:39 Aspirin 81 Mg Tab Chew PO 81 mg DAILY JEAN-PAUL Administration Atorvastatin Calcium 40 mg 04/22/21 22:00 04/27/21 23:32 Atorvastatin 40 Mg Tab PO 40 mg QHS JEAN-PAUL Administration Clonazepam 1 mg 04/26/21 22:00 04/27/21 23:32 Clonazepam 2 Mg Tab PO 1 mg HS JEAN-PAUL Administration Dexamethasone 6 mg 04/23/21 10:00 04/28/21 09:39 Dexamethasone 4 Mg Tab PO 05/01/21 10:01 6 mg DAILY JEAN-PAUL Administration Dextrose 0 ml 04/26/21 09:04 Dextrose 10% *Hypoglycemia IV PRN PRN Hypoglycemia Dextrose 50 ml 04/28/21 10:28 Dextrose 50% In Water (25gm) 50 Ml Syringe IV Q30MIN PRN Hypoglycemia Protocol Famotidine 20 mg 04/28/21 10:00 04/28/21 09:39 Famotidine 20 Mg/2 Ml Inj IV 20 mg QAM JEAN-PAUL Administration Furosemide 40 mg 04/22/21 10:00 04/28/21 09:39 Furosemide 40 Mg Tab PO 40 mg DAILY JEAN-PAUL Administration Heparin Sodium (Porcine) 5,000 unit 04/22/21 06:00 04/28/21 06:09 Heparin 5,000 Unit/1 Ml Vial SUB-Q 5,000 unit Q8HR JEAN-PAUL Administration Heparin Sodium (Porcine) 3,000 unit 04/22/21 22:34 Heparin 10,000 Units/10 Ml Vial IV MARYLU PRN hemodialysis Hydralazine HCl 10 mg 04/22/21 04:51 Hydralazine 20 Mg/1 Ml Inj IV Q6H PRN Blood Pressure Hydromorphone HCl 0.5 mg 04/22/21 04:47 Hydromorphone 1 Mg/1 Ml Inj IV Q3H PRN Pain , Severe (7-10) Hydrophilic Ointment 1 applic 04/27/21 22:36 Lip Therapy Vaseline TP Q2HR PRN Dry Lips Sodium Chloride 100 mls @ 999 mls/hr 04/22/21 22:34 Nacl 0.9% IV MARYLU PRN Hypotension Dextrose/Sodium Chloride 1,000 mls @ 40 mls/hr 04/25/21 16:00 04/25/21 23:59 D5ns IV 40 mls/hr DIRECT JEAN-PAUL Administration Propofol 1,000 mg in 100 mls @ 2.04 mls/hr 04/27/21 23:00 04/28/21 08:15 Diprivan 10 Mg/Ml IV 10 mcg/kg/min TITR JEAN-PAUL 4.08 mls/hr Titration Protocol 5 MCG/KG/MIN Insulin Human Lispro 0 unit 04/28/21 12:00 Insulin Lispro 100 Unit/Ml SUB-Q Q6HR JEAN-PAUL Protocol Levothyroxine Sodium 88 mcg 04/22/21 06:00 04/28/21 07:52 Levothyroxine 88 Mcg Tab PO 88 mcg DAILY@0600 JEAN-PAUL Administration Metoprolol Tartrate 50 mg 04/22/21 10:00 04/28/21 09:39 Metoprolol Tartrate 50 Mg Tab PO 50 mg DAILY JEAN-PAUL Administration Montelukast Sodium 10 mg 04/22/21 10:00 04/27/21 12:42 Montelukast 10 Mg Tab PO 10 mg DAILY JEAN-PAUL Administration Morphine Sulfate 2 mg 04/22/21 04:47 04/23/21 19:54 Morphine 2 Mg/1 Ml Inj IV 2 mg Q4H PRN Administration Pain, Moderate (4-6) Multi-Ingred Cream/Lotion/Oil/Oint 1 applic 04/27/21 22:36 Mineral Oil/Petrolatum, White Ophth Oint 3.5 Gm OU Q4HR PRN Dry Eye(s) Ondansetron HCl 4 mg 04/22/21 04:47 Ondansetron 4 Mg/2 Ml Inj IV Q8H PRN Nausea And Vomiting Senna/Docusate Sodium 1 tab 04/28/21 10:00 04/28/21 09:39 Sennosides/Docusate Sodium 8.6/50 Mg Tab FEEDTUBE 1 tab BID JEAN-PAUL Administration Simple Syrup 15 ml 04/26/21 12:29 Simple Syrup 15 Ml FEEDTUBE PRN PRN Hypoglycemia Simple Syrup 30 ml 04/26/21 12:29 Simple Syrup 15 Ml FEEDTUBE PRN PRN Hypoglycemia Sodium Bicarbonate 325 mg 04/26/21 12:29 Sodium Bicarbonate 325 Mg Tab FEEDTUBE PRN PRN For Clogged Feeding Tube Sodium Chloride 10 ml 04/22/21 10:00 04/28/21 09:40 Sodium Chloride 0.9% 10 Ml Flush Syringe IV 10 ml BID JEAN-PAUL Administration Sodium Chloride 10 ml 04/22/21 04:47 Sodium Chloride 0.9% 10 Ml Flush Syringe IV PRN PRN LINE FLUSH Nutrition/Malnutrition Assess - Dietary Evaluation Nutrition/Malnutrition Findings: Nutrition Notes Start: 04/22/21 10:50 Freq: Status: Active Protocol: Document 04/26/21 15:16 RAFI (Rec: 04/26/21 15:25 RAFI [id number]) Nutrition Notes Initial or Follow up Brief Note Current Diagnosis CKD (stage V CKD),Coronary Artery Disease,Diabetes, Hypertension,Respiratory Failure,Hyperlipidemia Other Pertinent Diagnosis COVID-19, Pneumonia, Vascular Dementia. Current Diet Cardiac/Consistent Carbohydrates Diet (since B ). Height 5 ft 2 in Weight 69 kg [place] Body Weight (kg) 50.00 BMI 27.8 Weight change and time frame 0.853 Kg body weight loss in 4 days reported. Subjective/Other Information RD consult for routine F/U on diet education. Pt has COVID-19, not a candidate for Nutrition Education at the time, will assess feasibility on F/U. Pt's PO intake of meals has been Neglible (0%), according to ADL notes. Percent of energy/protein needs met: Prescribed Cardiac/Consistent Carbohydrates Diet provides for energy/protein needs (1, 977 Kcal/86 g) during LOS. Nutrition Intervention Follow-Up By: 04/29/21 Additional Comments Continue monitoring food tolerance, %PO intake of meals , and BM. <CAROLINE SETH - Last Filed: 04/29/21 07:13> Assessment and Plan Assessment and plan: I saw and evaluated the patient. I agree with the findings and the plan of care as documented in the Nurse Practitioner's~note, with the following corrections and additions. Hospitalist Physical - Constitutional Vitals: Temp Pulse Resp BP Pulse Ox 99.0 F 29 L 0 L 86/14 70 L 04/29/21 00:00 04/29/21 04:00 04/29/21 04:40 04/29/21 03:30 04/29/21 04:20 Results - Labs CBC & Chem 7: 04/28/21 10:40 04/28/21 04:00 Labs: Laboratory Last Values WBC 14.5 K/mm3 (4.5-11.0) H 04/28/21 10:40 RBC 3.66 M/mm3 (3.65-5.03) 04/28/21 10:40 Hgb 10.6 gm/dl (10.1-14.3) 04/28/21 10:40 Hct 34.8 % (30.3-42.9) 04/28/21 10:40 MCV 95 fl (79-97) 04/28/21 10:40 MCH 29 pg (28-32) 04/28/21 10:40 MCHC 30 % (30-34) 04/28/21 10:40 RDW 17.8 % (13.2-15.2) H 04/28/21 10:40 Plt Count 346 K/mm3 (140-440) 04/28/21 10:40 Lymph % (Auto) 9.5 % (13.4-35.0) L 04/23/21 02:20 Morris % (Auto) 5.6 % (0.0-7.3) 04/23/21 02:20 Eos % (Auto) 0.0 % (0.0-4.3) 04/23/21 02:20 Baso % (Auto) 0.2 % (0.0-1.8) 04/23/21 02:20 Lymph # (Auto) 0.8 K/mm3 (1.2-5.4) L 04/23/21 02:20 Morris # (Auto) 0.5 K/mm3 (0.0-0.8) 04/23/21 02:20 Eos # (Auto) 0.0 K/mm3 (0.0-0.4) 04/23/21 02:20 Baso # (Auto) 0.0 K/mm3 (0.0-0.1) 04/23/21 02:20 Seg Neutrophils % 84.7 % (40.0-70.0) H 04/23/21 02:20 Seg Neutrophils # 7.1 K/mm3 (1.8-7.7) 04/23/21 02:20 D-Dimer 3799.32 ng/mlDDU (0-234) H 04/25/21 09:43 ABG pH 7.405 pH Units (7.350-7.450) 04/28/21 19:50 ABG pCO2 27.6 mm Hg 04/28/21 19:50 ABG pO2 83.1 mm Hg (80.0-90.0) 04/28/21 19:50 ABG HCO3 16.9 mmol/L (20.0-26.0) L 04/28/21 19:50 ABG O2 Saturation 96.6 % (95.0-99.0) 04/28/21 19:50 ABG O2 Content 11.9 (0.0-44) 04/28/21 19:50 ABG Base Excess -6.8 mmol/L (-2.0-3.0) L 04/28/21 19:50 ABG Hemoglobin 8.8 gm/dl (12.0-16.0) L 04/28/21 19:50 ABG Carboxyhemoglobin 1.4 % (0.0-5.0) 04/28/21 19:50 ABG Methemoglobin 0.4 % (0.0-1.5) 04/28/21 19:50 Oxyhemoglobin 94.9 % (95.0-99.0) L 04/28/21 19:50 FiO2 45 % 04/28/21 19:50 Sodium 137 mmol/L (137-145) 04/28/21 04:00 Potassium 4.6 mmol/L (3.6-5.0) 04/28/21 04:00 Chloride 92.3 mmol/L (98-107) L 04/28/21 04:00 Carbon Dioxide 24 mmol/L (22-30) 04/28/21 04:00 Anion Gap 25 mmol/L 04/28/21 04:00 BUN 65 mg/dL (7-17) H 04/28/21 04:00 Creatinine 8.5 mg/dL (0.6-1.2) H 04/28/21 04:00 Estimated GFR 5 ml/min 04/28/21 04:00 BUN/Creatinine Ratio 8 % 04/28/21 04:00 Glucose 277 mg/dL (65-100) H 04/28/21 04:00 POC Glucose 175 mg/dL (70-105) H 04/29/21 02:56 Lactic Acid 0.60 mmol/L (0.7-2.0) L 04/22/21 05:26 Calcium 11.0 mg/dL (8.4-10.2) H 04/28/21 04:00 Phosphorus 6.30 mg/dL (2.5-4.5) H 04/23/21 04:00 Magnesium 2.40 mg/dL (1.7-2.3) H 04/23/21 04:00 Ferritin 7666.0 ng/mL (10.0-200.0) H 04/25/21 09:43 Total Bilirubin 0.40 mg/dL (0.1-1.2) 04/22/21 00:23 AST 35 units/L (5-40) 04/22/21 00:23 ALT 16 units/L (7-56) 04/22/21 00:23 Alkaline Phosphatase 49 units/L (35-129) 04/22/21 00:23 Ammonia 16.0 umol/L (25-60) L 04/28/21 04:00 Lactate Dehydrogenase 493 units/L (91-180) H 04/22/21 00:23 C-Reactive Protein 34.10 mg/dL (0.00-1.30) H 04/25/21 09:43 Total Protein 6.3 g/dL (6.3-8.2) 04/22/21 00:23 Albumin 3.0 g/dL (3.9-5) L 04/22/21 00:23 Albumin/Globulin Ratio 0.9 % 04/22/21 00:23 Procalcitonin 3.90 ng/mL (<0.15) 04/22/21 00:23 Nasal Screen MRSA (PCR) Negative (Negative) 04/25/21 Unknown Coronavirus (PCR) Positive (Negative) A 04/22/21 10:36 Hepatitis A IgM Ab Non-reactive (NonReactive) 04/23/21 01:13 Hep Bs Antigen Non-reactive (Negative) 04/23/21 01:13 Hep B Core IgM Ab Non-reactive (NonReactive) 04/23/21 01:13 Hepatitis C Antibody Non-reactive (NonReactive) 04/23/21 01:13 Delacruz/IV: Voiding Method Incontinent Nutrition/Malnutrition Assess - Dietary Evaluation Nutrition/Malnutrition Findings: Nutrition Notes Start: 04/22/21 10:5 0 Freq: Status: Discharge Protocol: Document 04/26/21 15:16 RAFI (Rec: 04/26/21 15:25 RAFI [id number]) Nutrition Notes Initial or Follow up Brief Note Current Diagnosis CKD (stage V CKD),Coronary Artery Disease,Diabetes, Hypertension,Respiratory Failure,Hyperlipidemia Other Pertinent Diagnosis COVID-19, Pneumonia, Vascular Dementia. Current Diet Cardiac/Consistent Carbohydrates Diet (since B ). Height 5 ft 2 in Weight 69 kg [place] Body Weight (kg) 50.00 BMI 27.8 Weight change and time frame 0.853 Kg body weight loss in 4 days reported. Subjective/Other Information RD consult for routine F/U on diet education. Pt has COVID-19, not a candidate for Nutrition Education at the time, will assess feasibility on F/U. Pt's PO intake of meals has been Neglible (0%), according to ADL notes. Percent of energy/protein needs met: Prescribed Cardiac/Consistent Carbohydrates Diet provides for energy/protein needs (1, 977 Kcal/86 g) during LOS. Nutrition Intervention Follow-Up By: 04/29/21 Additional Comments Continue monitoring food tolerance, %PO intake of meals , and BM.
[2021-04-28 11:30] LABS: Mean Corpuscular HGB Conc 30 % (30-34); Mean Corpuscular Volume 95 fl (79-97); Platelet Count 346 K/mm3 (140-440); Red Blood Count 3.66 M/mm3 (3.65-5.03); Red Cell Distribution Width 17.8 % (13.2-15.2)
[2021-04-28 11:32] LABS: Hematocrit 34.8 % (30.3-42.9); Hemoglobin 10.6 gm/dl (10.1-14.3)
[2021-04-28] MEDS: MONTELUKAST 10 MG TAB PO SCH (13:12)
--- NOTE | 2021-04-28 13:18 | Event Note ---
Date: 04/28/21 Place a call to patient's son/POA, Matt Blount at [phone]. He was updated on patient's current condition. All question and concerns were voiced at this time. The team will continue to follow up with further updates. + CCT 20mins
[2021-04-28] MEDS ORDERED: MIDAZOLAM 5 MG/5 ML INJ MDV IV ONE ×2 (16:14→19:14)
--- NOTE | 2021-04-28 19:08 | Consultation ---
History of Present Illness Consult date: 04/28/21 Requesting physician: ANNA LOPEZ Reason for consult: other (Resp failure on MVS) History of present illness: This is a 80- year- female with past medical history of ESRD on HD, HTN, Dementia, DM, and CAD s/p X2 stents initially admitted on the floor for acute hypoxic respiratory failure 2/2 COVID pneumonia, Code MET yesterday, was orally intubated and transferred to the ICU Patient seen and examined. Currently intubated, orally intubated on MVS. She is tacyhpnic, tachycadric, hypertensive Past History Past Medical History: diabetes, ESRD, hypertension, renal failure, other (Dementia) Medications and Allergies Allergies Allergy/AdvReac Type Severity Reaction Status Date / Time celecoxib Allergy Unknown Verified 04/22/21 00:07 Sulfa (Sulfonamide AdvReac Nausea Verified 04/22/21 00:07 Antibiotics) Home Medications Medication Instructions Recorded Confirmed Last Taken Type Albuterol Mdi (or & Nicu Only) 2 puff IH QID PRN #1 inhalation 03/30/14 04/24/21 12/05/20 20:00 Rx [ProAir HFA Inhaler] Aspirin [Aspirin BABY CHEW TAB] 81 mg PO DAILY 03/30/14 04/24/21 01/30/21 08:40 History Febuxostat [Uloric] 80 mg PO DAILY 03/30/14 04/24/21 12/05/20 20:00 History Levothyroxine [Synthroid] 88 mcg PO DAILY 03/30/14 04/24/21 01/30/21 06:30 History Metoprolol [Lopressor TAB] 50 mg PO DAILY 03/30/14 04/24/21 02/01/21 10:00 History Montelukast [Singulair] 10 mg PO DAILY 03/30/14 04/24/21 02/01/21 10:00 History Quetiapine Fumarate [QUEtiapine 300 mg PO DAILY 03/30/14 04/24/21 01/30/21 21:00 History Fumarate] Rosuvastatin (Nf) [Crestor] 20 mg PO DAILY 03/30/14 04/24/21 12/05/20 20:00 History clonazePAM 2 mg PO HS 03/30/14 04/24/21 01/31/21 23:00 History sitaGLIPtin [Januvia] 50 mg PO DAILY 03/30/14 04/24/21 01/30/21 08:30 History Promethazine [Phenergan] 25 mg PO Q6H PRN 05/28/14 04/24/21 12/05/20 20:00 History Furosemide [Lasix] 40 mg PO DAILY 05/29/14 04/24/21 02/01/21 10:00 History levoFLOXacin [Levaquin] 250 mg PO QDAY #3 tablet 02/03/21 04/24/21 Unknown Rx Active Meds: Active Medications Acetaminophen (Acetaminophen 325 Mg Tab) 650 mg PO Q4H PRN PRN Reason: Pain MILD(1-3)/Fever >100.5/LOBATO Last Admin: 04/22/21 07:05 Dose: 650 mg Albuterol (Albuterol 2.5 Mg/3 Ml Nebu) 2.5 mg IH Q4HRT PRN PRN Reason: Shortness Of Breath Lipase/Protease/Amylase (Lipase 10,500/Protease 25,000/Amylase 43,750 (Units) Dr Frias) 1 each FEEDTUBE PRN PRN PRN Reason: For Clogged Feeding Tube Aspirin (Aspirin 81 Mg Tab Chew) 81 mg PO DAILY [facility] Last Admin: 04/28/21 09:39 Dose: 81 mg Atorvastatin Calcium (Atorvastatin 40 Mg Tab) 40 mg PO QHS [facility] Last Admin: 04/27/21 23:32 Dose: 40 mg Clonazepam (Clonazepam 2 Mg Tab) 1 mg PO HS [facility] Last Admin: 04/27/21 23:32 Dose: 1 mg Dexamethasone (Dexamethasone 4 Mg Tab) 6 mg PO DAILY [facility] Stop: 05/01/21 10:01 Last Admin: 04/28/21 09:39 Dose: 6 mg Dextrose (Dextrose 10% *Hypoglycemia) 0 ml IV PRN PRN PRN Reason: Hypoglycemia Dextrose (Dextrose 50% In Water (25gm) 50 Ml Syringe) 50 ml IV Q30MIN PRN; Protocol PRN Reason: Hypoglycemia Famotidine (Famotidine 20 Mg/2 Ml Inj) 20 mg IV QAM [facility] Last Admin: 04/28/21 09:39 Dose: 20 mg Furosemide (Furosemide 40 Mg Tab) 40 mg PO DAILY [facility] Last Admin: 04/28/21 09:39 Dose: 40 mg Heparin Sodium (Porcine) (Heparin 5,000 Unit/1 Ml Vial) 5,000 unit SUB-Q Q8HR [facility] Last Admin: 04/28/21 13:12 Dose: 5,000 unit Heparin Sodium (Porcine) (Heparin 10,000 Units/10 Ml Vial) 3,000 unit IV MARYLU PRN PRN Reason: hemodialysis Hydralazine HCl (Hydralazine 20 Mg/1 Ml Inj) 10 mg IV Q6H PRN PRN Reason: Blood Pressure Hydromorphone HCl (Hydromorphone 1 Mg/1 Ml Inj) 0.5 mg IV Q3H PRN PRN Reason: Pain , Severe (7-10) Hydrophilic Ointment (Lip Therapy Vaseline) 1 applic TP Q2HR PRN PRN Reason: Dry Lips Sodium Chloride (Nacl 0.9%) 100 mls @ 999 mls/hr IV MARYLU PRN PRN Reason: Hypotension Dextrose/Sodium Chloride (D5ns) 1,000 mls @ 40 mls/hr IV DIRECT [facility] Last Admin: 04/25/21 23:59 Dose: 40 mls/hr Propofol (Diprivan 10 Mg/Ml) 1,000 mg in 100 mls @ 2.04 mls/hr IV TITR [facility]; Protocol Last Titration: 04/28/21 11:50 Dose: 15 mcg/kg/min, 6.12 mls/hr Insulin Human Lispro (Insulin Lispro 100 Unit/Ml) 0 unit SUB-Q Q6HR [facility]; Protocol Last Admin: 04/28/21 18:44 Dose: 4 unit Levothyroxine Sodium (Levothyroxine 88 Mcg Tab) 88 mcg PO DAILY@0600 [facility] Last Admin: 04/28/21 07:52 Dose: 88 mcg Metoprolol Tartrate (Metoprolol Tartrate 50 Mg Tab) 50 mg PO DAILY [facility] Last Admin: 04/28/21 09:39 Dose: 50 mg Montelukast Sodium (Montelukast 10 Mg Tab) 10 mg PO DAILY [facility] Last Admin: 04/28/21 13:12 Dose: 10 mg Morphine Sulfate (Morphine 2 Mg/1 Ml Inj) 2 mg IV Q4H PRN PRN Reason: Pain, Moderate (4-6) Last Admin: 04/23/21 19:54 Dose: 2 mg Multi-Ingred Cream/Lotion/Oil/Oint (Mineral Oil/Petrolatum, White Ophth Oint 3.5 Gm) 1 applic OU Q4HR PRN PRN Reason: Dry Eye(s) Ondansetron HCl (Ondansetron 4 Mg/2 Ml Inj) 4 mg IV Q8H PRN PRN Reason: Nausea And Vomiting Senna/Docusate Sodium (Sennosides/Docusate Sodium 8.6/50 Mg Tab) 1 tab FEEDTUBE BID [facility] Last Admin: 04/28/21 09:39 Dose: 1 tab Simple Syrup (Simple Syrup 15 Ml) 15 ml FEEDTUBE PRN PRN PRN Reason: Hypoglycemia Simple Syrup (Simple Syrup 15 Ml) 30 ml FEEDTUBE PRN PRN PRN Reason: Hypoglycemia Sodium Bicarbonate (Sodium Bicarbonate 325 Mg Tab) 325 mg FEEDTUBE PRN PRN PRN Reason: For Clogged Feeding Tube Sodium Chloride (Sodium Chloride 0.9% 10 Ml Flush Syringe) 10 ml IV BID [facility] Last Admin: 04/28/21 09:40 Dose: 10 ml Sodium Chloride (Sodium Chloride 0.9% 10 Ml Flush Syringe) 10 ml IV PRN PRN PRN Reason: LINE FLUSH Review of Systems ROS unobtainable: due to endotracheal tube, due to mental status Physical Examination Vital signs: Vital Signs Temp Pulse Resp BP Pulse Ox 99.4 F 75 24 115/45 97 04/22/21 00:30 04/22/21 00:30 04/22/21 00:30 04/22/21 00:30 04/22/21 00:30 General appearance: appears uncomfortable, other (elderly woman, in moderate resp distress) Eyes: non-icteric ENT: oropharynx moist Neck: supple, no lymphadenopathy, no JVD Effort: very labored Ascultation: Bilateral: diminished breath sounds, rhonchi Cardiovascular: other (tachycardia, S1,S2) Integumentary: normal, other (Right femoral CVL) Extremities: no cyanosis, no edema, pulses normal, other non-focal exam, other (moves all extremiteis, not obeying commands) Results - Laboratory Findings CBC and BMP: 04/28/21 10:40 04/28/21 04:00 ABG ABG pH 7.453 pH Units (7.350-7.450) H 04/28/21 02:51 ABG pCO2 38.0 mm Hg 04/28/21 02:51 ABG pO2 71.1 mm Hg (80.0-90.0) L 04/28/21 02:51 ABG O2 Saturation 96.3 % (95.0-99.0) 04/28/21 02:51 PT/INR, D-dimer D-Dimer 3799.32 ng/mlDDU (0-234) H 04/25/21 09:43 Abnormal lab findings: Abnormal Labs 04/22/21 04/22/21 04/22/21 00:23 00:23 00:23 WBC RBC 3.36 L Hgb 9.8 L RDW 17.2 H Lymph % (Auto) 10.7 L Lymph # (Auto) 0.6 L Seg Neutrophils % 83.2 H D-Dimer 3117.47 H ABG pH ABG pO2 ABG Base Excess ABG Hemoglobin Oxyhemoglobin Sodium Chloride BUN Creatinine Glucose POC Glucose Lactic Acid Calcium Phosphorus Magnesium Ferritin > 2000.0 H Ammonia Lactate Dehydrogenase C-Reactive Protein Albumin Coronavirus (PCR) 04/22/21 04/22/21 04/22/21 00:23 03:04 05:26 WBC RBC Hgb RDW Lymph % (Auto) Lymph # (Auto) Seg Neutrophils % D-Dimer ABG pH ABG pO2 ABG Base Excess ABG Hemoglobin Oxyhemoglobin Sodium Chloride 95.0 L BUN 40 H Creatinine 9.4 H Glucose 108 H POC Glucose 66 L Lactic Acid 0.60 L Calcium Phosphorus Magnesium Ferritin Ammonia Lactate Dehydrogenase 493 H C-Reactive Protein 34.80 H Albumin 3.0 L Coronavirus (PCR) 04/22/21 04/22/21 04/22/21 08:19 10:36 11:40 WBC RBC Hgb RDW Lymph % (Auto) Lymph # (Auto) Seg Neutrophils % D-Dimer ABG pH ABG pO2 ABG Base Excess ABG Hemoglobin Oxyhemoglobin Sodium Chloride BUN Creatinine Glucose POC Glucose 116 H 288 H Lactic Acid Calcium Phosphorus Magnesium Ferritin Ammonia Lactate Dehydrogenase C-Reactive Protein Albumin Coronavirus (PCR) Positive A 04/22/21 04/23/21 04/23/21 17:05 00:19 02:20 WBC RBC 3.47 L Hgb RDW 16.9 H Lymph % (Auto) 9.5 L Lymph # (Auto) 0.8 L Seg Neutrophils % 84.7 H D-Dimer ABG pH ABG pO2 ABG Base Excess ABG Hemoglobin Oxyhemoglobin Sodium Chloride BUN Creatinine Glucose POC Glucose 159 H 129 H Lactic Acid Calcium Phosphorus Magnesium Ferritin Ammonia Lactate Dehydrogenase C-Reactive Protein Albumin Coronavirus (PCR) 04/23/21 04/23/21 04/23/21 04:00 12:36 15:52 WBC RBC Hgb RDW Lymph % (Auto) Lymph # (Auto) Seg Neutrophils % D-Dimer ABG pH ABG pO2 ABG Base Excess ABG Hemoglobin Oxyhemoglobin Sodium 134 L Chloride 90.9 L BUN 54 H Creatinine 10.7 H Glucose 119 H POC Glucose 126 H 69 L Lactic Acid Calcium Phosphorus 6.30 H Magnesium 2.40 H Ferritin Ammonia Lactate Dehydrogenase C-Reactive Protein Albumin Coronavirus (PCR) 04/23/21 04/24/21 04/24/21 23:22 07:48 16:24 WBC RBC Hgb RDW Lymph % (Auto) Lymph # (Auto) Seg Neutrophils % D-Dimer ABG pH ABG pO2 ABG Base Excess ABG Hemoglobin Oxyhemoglobin Sodium Chloride BUN Creatinine Glucose POC Glucose 147 H 158 H 68 L Lactic Acid Calcium Phosphorus Magnesium Ferritin Ammonia Lactate Dehydrogenase C-Reactive Protein Albumin Coronavirus (PCR) 04/24/21 04/24/21 04/25/21 19:59 22:54 05:53 WBC RBC Hgb RDW Lymph % (Auto) Lymph # (Auto) Seg Neutrophils % D-Dimer ABG pH ABG pO2 ABG Base Excess ABG Hemoglobin Oxyhemoglobin Sodium Chloride BUN Creatinine Glucose POC Glucose 115 H 116 H 129 H Lactic Acid Calcium Phosphorus Magnesium Ferritin Ammonia Lactate Dehydrogenase C-Reactive Protein Albumin Coronavirus (PCR) 04/25/21 04/25/21 04/25/21 09:43 09:43 09:43 WBC RBC Hgb RDW Lymph % (Auto) Lymph # (Auto) Seg Neutrophils % D-Dimer 3799.32 H ABG pH ABG pO2 ABG Base Excess ABG Hemoglobin Oxyhemoglobin Sodium Chloride BUN Creatinine Glucose POC Glucose Lactic Acid Calcium Phosphorus Magnesium Ferritin 7666.0 H Ammonia Lactate Dehydrogenase C-Reactive Protein 34.10 H Albumin Coronavirus (PCR) 04/25/21 04/26/21 04/26/21 22:56 05:33 05:34 WBC RBC Hgb RDW Lymph % (Auto) Lymph # (Auto) Seg Neutrophils % D-Dimer ABG pH ABG pO2 ABG Base Excess ABG Hemoglobin Oxyhemoglobin Sodium Chloride 95.4 L BUN 43 H Creatinine 6.9 H Glucose 118 H POC Glucose 109 H 49 L Lactic Acid Calcium 10.7 H Phosphorus Magnesium Ferritin Ammonia Lactate Dehydrogenase C-Reactive Protein Albumin Coronavirus (PCR) 04/26/21 04/26/21 04/26/21 07:18 11:58 14:09 WBC RBC Hgb RDW Lymph % (Auto) Lymph # (Auto) Seg Neutrophils % D-Dimer ABG pH ABG pO2 ABG Base Excess ABG Hemoglobin Oxyhemoglobin Sodium Chloride BUN Creatinine Glucose POC Glucose 128 H 24 L 151 H Lactic Acid Calcium Phosphorus Magnesium Ferritin Ammonia Lactate Dehydrogenase C-Reactive Protein Albumin Coronavirus (PCR) 04/26/21 04/26/21 04/27/21 16:28 20:21 07:55 WBC RBC Hgb RDW Lymph % (Auto) Lymph # (Auto) Seg Neutrophils % D-Dimer ABG pH ABG pO2 ABG Base Excess ABG Hemoglobin Oxyhemoglobin Sodium Chloride BUN Creatinine Glucose POC Glucose 109 H 243 H 175 H Lactic Acid Calcium Phosphorus Magnesium Ferritin Ammonia Lactate Dehydrogenase C-Reactive Protein Albumin Coronavirus (PCR) 04/27/21 04/27/21 04/27/21 17:38 19:31 20:03 WBC RBC Hgb RDW Lymph % (Auto) Lymph # (Auto) Seg Neutrophils % D-Dimer ABG pH ABG pO2 109.6 H ABG Base Excess -2.3 L ABG Hemoglobin 10.0 L Oxyhemoglobin Sodium Chloride BUN Creatinine Glucose POC Glucose 262 H 244 H Lactic Acid Calcium Phosphorus Magnesium Ferritin Ammonia Lactate Dehydrogenase C-Reactive Protein Albumin Coronavirus (PCR) 04/28/21 04/28/21 04/28/21 00:01 02:51 04:00 WBC RBC Hgb RDW Lymph % (Auto) Lymph # (Auto) Seg Neutrophils % D-Dimer ABG pH 7.453 H ABG pO2 71.1 L ABG Base Excess ABG Hemoglobin 8.7 L Oxyhemoglobin 94.6 L Sodium Chloride 92.3 L BUN 65 H Creatinine 8.5 H Glucose 277 H POC Glucose 227 H Lactic Acid Calcium 11.0 H Phosphorus Magnesium Ferritin Ammonia Lactate Dehydrogenase C-Reactive Protein Albumin Coronavirus (PCR) 04/28/21 04/28/21 04/28/21 04:00 06:03 10:40 WBC 14.5 H RBC Hgb RDW 17.8 H Lymph % (Auto) Lymph # (Auto) Seg Neutrophils % D-Dimer ABG pH ABG pO2 ABG Base Excess ABG Hemoglobin Oxyhemoglobin Sodium Chloride BUN Creatinine Glucose POC Glucose 220 H Lactic Acid Calcium Phosphorus Magnesium Ferritin Ammonia 16.0 L Lactate Dehydrogenase C-Reactive Protein Albumin Coronavirus (PCR) 04/28/21 04/28/21 04/28/21 11:26 18:43 18:44 WBC RBC Hgb RDW Lymph % (Auto) Lymph # (Auto) Seg Neutrophils % D-Dimer ABG pH ABG pO2 ABG Base Excess ABG Hemoglobin Oxyhemoglobin Sodium Chloride BUN Creatinine Glucose POC Glucose 168 H 504 H 280 H Lactic Acid Calcium Phosphorus Magnesium Ferritin Ammonia Lactate Dehydrogenase C-Reactive Protein Albumin Coronavirus (PCR) - Diagnostic Findings Chest x-ray: image reviewed (ETT low, Bilateral lower lobe infiltrates) Assessment and Plan Acute hypoxemic respiratory failure, on MVS COVID-19 infection Bilateral pneumonia Superficial thrombus of right cephalic vein Elevated D-dimer -Lower extemity dopplers( negative) - V/Q-low probability Hypertension ESRD on HD Acute encephalopathy -MRI unremarkable History of CVA Anemia At the time of my evaluation- patient is in severe resp distress One dose of Midazolam 5mg was administered at the bedside. Fentanyl infusion was ordered. Propofol increased , goal is to titrate Propofol to ventilator synchrony, keep RASS -2 to -3 - VAP bundle addressed, aspiration precautions - continue to titrate supplemental oxygen to keep SpO2 88-90%, -Lung protective strategies -Pull ETT out by 3cm- discussed with RT/RN. They state ETT had been pulled out earlier. -CXR ordered to evaluate tube position -Lung protective strategies,decreased tidal volume to 375 ml -ABG ordered - continue bronchodilators with pulmonary hygiene per RT - continue accuchecks with glycemic control per SSI (While critically ill target blood glucose of 140-180 mg/dL; avoid hypoglycemia) -Lantus insulin 10 units qhs was ordered. Her glycemic control has been suboptimal - avoid nephrotoxins, renally dose all medications - Monitor and replace electrolytes as needed -Supportive HD per Renal service -Antibiotics per ID service - Maintenance of sleep-wake cycle, avoid delirium - Stress ulcer prophylaxis-Famotidine -VTE prophylaxis- Heparin subcut -Supportive transfusions as clinically indicated- keep HgB >7g/dL - Monitor hemodynamics closely - continue other care per attending / other consultants COVID SPECIFIC INTERVENTIONS - Remdesivir not given - continue systemic steroids for severe COVID-19 infection (Decadron) - Monitor inflammatory markers per facility protocol - ferritin, Ddimer, CRP - therapeutic anticoagulation per system Protocol based on d-dimer and clinical considerations -on therapeutic enoxaparin - Continue contact and airborne isolation per facility protocol CONDITION: CRITICAL PROGNOSIS: GUARDED CODE STATUS: FULL CODE The high probability of a clinically significant, sudden or life-threatening deterioration of the respiratory, cardiovascular systems required my full and direct attention, intervention and personal management. The aggregate critical care time was [45] minutes without overlap. Time includes spent on; [x] Data Review and interpretation [x] Patient assessment and monitoring of vital signs [x] Documentation [x] Medication orders and management
[2021-04-28] MEDS ORDERED: fentaNYL 100 MCG/2 ML INJ IV PRN (19:11)
--- NOTE | 2021-04-28 19:56 | Progress Note ---
Assessment and Plan 1. ESRD: Patient is on maintenance hemodialysis three times a week, TTS schedule. Last outpatient hemodialysis 04/20. Hemodialysis: 04/23, 04/25, 04/27. 2. FEN: Monitor lytes and volume status. 3. Acute hypoxic resp failure, POA: 2/2 Covid-19 PNA. Was on NC O2. 04/27 Code met and intubated for worsening hypoxia and respiratory distress. Currently intubated on vent. Monitor. 4. Covid PNA, POA: Decadron. Followed by ID. 5. Supraventricular Tachycardia (SVT): Resolved. 6. Acute metabolic encephalopathy. 7. Anemia, POA: Epogen with HD. Monitor. 8. DM type 2: Was Hypoglycemia. 9. Hypertension: Monitor BP. Adjust meds as needed. Subjective: Patient was was not examined today to limit exposure to Covid-19 infection. However the examination findings from other providers noted. The current and previous medical records are reviewed in detail as are laboratory and imaging data reviewed when appropriate. Medications being given are also reviewed. In addition the case has been discussed with the attending hospitalist and the nurse when needed. New renal recommendations as above. Events noted. Examination: Subjective Date of service: 04/28/21 Objective - Vital Signs Vital signs: Vital Signs - 12hr 04/28/21 04/28/21 04/28/21 08:00 08:10 08:20 Temperature 98.5 F Pulse Rate 99 H 103 H 101 H Pulse Rate [ 106 H From Monitor] Respiratory 17 22 22 Rate Blood Pressure 120/62 143/68 154/60 O2 Sat by Pulse 98 96 100 Oximetry 04/28/21 04/28/21 04/28/21 08:30 08:40 08:50 Temperature Pulse Rate 108 H 102 H 100 H Pulse Rate [ From Monitor] Respiratory 23 21 21 Rate Blood Pressure 154/60 126/54 123/63 O2 Sat by Pulse 94 94 99 Oximetry 04/28/21 04/28/21 04/28/21 09:00 09:10 09:20 Temperature Pulse Rate 101 H 108 H 103 H Pulse Rate [ From Monitor] Respiratory 17 18 20 Rate Blood Pressure 130/58 130/58 120/62 O2 Sat by Pulse 99 98 94 Oximetry 04/28/21 04/28/21 04/28/21 09:30 09:39 09:40 Temperature Pulse Rate 104 H 105 H 103 H Pulse Rate [ From Monitor] Respiratory 22 23 Rate Blood Pressure 120/62 145/73 145/73 O2 Sat by Pulse 95 94 Oximetry 04/28/21 04/28/21 04/28/21 09:50 10:00 10:10 Temperature Pulse Rate 105 H 101 H 107 H Pulse Rate [ From Monitor] Respiratory 23 21 17 Rate Blood Pressure 140/65 127/61 127/61 O2 Sat by Pulse 96 96 94 Oximetry 04/28/21 04/28/21 04/28/21 10:20 10:30 10:40 Temperature Pulse Rate 100 H 105 H 98 H Pulse Rate [ From Monitor] Respiratory 13 20 21 Rate Blood Pressure 150/60 120/64 120/64 O2 Sat by Pulse 96 96 95 Oximetry 04/28/21 04/28/21 04/28/21 10:50 11:00 11:10 Temperature Pulse Rate 97 H 96 H 97 H Pulse Rate [ From Monitor] Respiratory 24 20 21 Rate Blood Pressure 130/53 130/53 112/47 O2 Sat by Pulse 95 96 96 Oximetry 04/28/21 04/28/21 04/28/21 11:20 11:30 11:40 Temperature Pulse Rate 102 H 98 H 96 H Pulse Rate [ From Monitor] Respiratory 20 18 21 Rate Blood Pressure 118/56 136/61 136/61 O2 Sat by Pulse 97 96 96 Oximetry 04/28/21 04/28/21 04/28/21 11:50 12:00 12:10 Temperature Pulse Rate 96 H 99 H 98 H Pulse Rate [ 98 H From Monitor] Respiratory 20 5 L 20 Rate Blood Pressure 147/75 140/65 140/65 O2 Sat by Pulse 96 99 Oximetry 04/28/21 04/28/21 04/28/21 12:12 12:15 12:20 Temperature 97.4 F L Pulse Rate 99 H 97 H Pulse Rate [ From Monitor] Respiratory 21 Rate Blood Pressure 147/75 89/47 O2 Sat by Pulse 95 90 Oximetry 04/28/21 04/28/21 04/28/21 12:30 12:40 12:50 Temperature Pulse Rate 95 H 94 H 93 H Pulse Rate [ From Monitor] Respiratory 20 20 22 Rate Blood Pressure 99/55 99/55 103/41 O2 Sat by Pulse 94 96 93 Oximetry 04/28/21 04/28/21 04/28/21 13:00 13:10 13:20 Temperature Pulse Rate 91 H 93 H 91 H Pulse Rate [ From Monitor] Respiratory 24 24 21 Rate Blood Pressure 126/50 126/50 115/58 O2 Sat by Pulse 96 95 96 Oximetry 04/28/21 04/28/21 04/28/21 13:30 13:40 13:50 Temperature Pulse Rate 93 H 90 90 Pulse Rate [ From Monitor] Respiratory 25 H 23 22 Rate Blood Pressure 118/54 118/54 104/51 O2 Sat by Pulse 97 98 97 Oximetry 04/28/21 04/28/21 04/28/21 14:00 14:10 14:20 Temperature Pulse Rate 90 90 90 Pulse Rate [ From Monitor] Respiratory 22 22 24 Rate Blood Pressure 104/51 97/43 103/44 O2 Sat by Pulse 97 98 98 Oximetry 04/28/21 04/28/21 04/28/21 14:30 14:40 14:50 Temperature Pulse Rate 86 89 92 H Pulse Rate [ From Monitor] Respiratory 23 23 24 Rate Blood Pressure 103/44 139/65 129/66 O2 Sat by Pulse 97 96 98 Oximetry 04/28/21 04/28/21 04/28/21 15:00 15:10 15:20 Temperature Pulse Rate 94 H 91 H 95 H Pulse Rate [ From Monitor] Respiratory 19 25 H 22 Rate Blood Pressure 128/59 128/59 120/57 O2 Sat by Pulse 96 99 95 Oximetry 04/28/21 04/28/21 04/28/21 15:30 15:40 15:50 Temperature Pulse Rate 96 H 97 H 98 H Pulse Rate [ From Monitor] Respiratory 23 Rate Blood Pressure 110/53 110/53 132/64 O2 Sat by Pulse 96 99 98 Oximetry 04/28/21 04/28/21 04/28/21 16:00 16:10 16:20 Temperature 99.2 F Pulse Rate 98 H 100 H 99 H Pulse Rate [ From Monitor] Respiratory 27 H 25 H 27 H Rate Blood Pressure 132/64 146/59 142/70 O2 Sat by Pulse 96 99 96 Oximetry 04/28/21 04/28/21 04/28/21 16:30 16:40 16:50 Temperature Pulse Rate 101 H 109 H 112 H Pulse Rate [ From Monitor] Respiratory 22 22 30 H Rate Blood Pressure 146/60 146/60 139/67 O2 Sat by Pulse 99 98 54 L Oximetry 04/28/21 04/28/21 04/28/21 17:00 17:10 17:20 Temperature Pulse Rate 113 H 112 H 112 H Pulse Rate [ From Monitor] Respiratory 23 20 22 Rate Blood Pressure 156/75 156/75 148/63 O2 Sat by Pulse 97 89 89 Oximetry 04/28/21 04/28/21 04/28/21 17:30 17:40 17:50 Temperature Pulse Rate 116 H 117 H 117 H Pulse Rate [ From Monitor] Respiratory 20 24 29 H Rate Blood Pressure 155/78 155/78 165/81 O2 Sat by Pulse 100 58 L 100 Oximetry 04/28/21 04/28/21 04/28/21 18:00 18:10 18:20 Temperature Pulse Rate 120 H 116 H 115 H Pulse Rate [ From Monitor] Respiratory 22 31 H 31 H Rate Blood Pressure 171/66 171/66 164/62 O2 Sat by Pulse 86 Oximetry 04/28/21 04/28/21 04/28/21 18:30 18:40 18:50 Temperature Pulse Rate 116 H 119 H 117 H Pulse Rate [ From Monitor] Respiratory 24 36 H 34 H Rate Blood Pressure 145/67 145/67 145/62 O2 Sat by Pulse 47 L Oximetry 04/28/21 04/28/21 19:00 19:30 Temperature Pulse Rate 121 H 115 H Pulse Rate [ From Monitor] Respiratory 29 H Rate Blood Pressure 153/62 144/51 O2 Sat by Pulse 90 99 Oximetry - Lab 04/28/21 10:40 04/28/21 04:00 Most recent lab results ABG pH 7.453 pH Units (7.350-7.450) H 04/28/21 02:51 ABG pCO2 38.0 mm Hg 04/28/21 02:51 ABG pO2 71.1 mm Hg (80.0-90.0) L 04/28/21 02:51 ABG HCO3 25.9 mmol/L (20.0-26.0) 04/28/21 02:51 ABG O2 Saturation 96.3 % (95.0-99.0) 04/28/21 02:51 Calcium 11.0 mg/dL (8.4-10.2) H 04/28/21 04:00 Phosphorus 6.30 mg/dL (2.5-4.5) H 04/23/21 04:00 Magnesium 2.40 mg/dL (1.7-2.3) H 04/23/21 04:00 Medications & Allergies - Medications Allergies/Adverse Reactions: Allergies celecoxib Allergy (Verified 04/22/21 00:07) Unknown Sulfa (Sulfonamide Antibiotics) Adverse Reaction (Verified 04/22/21 00:07) Nausea Home Medications: Home Medications Medication Instructions Recorded Confirmed Last Taken Type Albuterol Mdi (or & Nicu Only) 2 puff IH QID PRN #1 inhalation 03/30/14 04/24/21 12/05/20 20:00 Rx [ProAir HFA Inhaler] Aspirin [Aspirin BABY CHEW TAB] 81 mg PO DAILY 03/30/14 04/24/21 01/30/21 08:40 History Febuxostat [Uloric] 80 mg PO DAILY 03/30/14 04/24/21 12/05/20 20:00 History Levothyroxine [Synthroid] 88 mcg PO DAILY 03/30/14 04/24/21 01/30/21 06:30 History Metoprolol [Lopressor TAB] 50 mg PO DAILY 03/30/14 04/24/21 02/01/21 10:00 History Montelukast [Singulair] 10 mg PO DAILY 03/30/14 04/24/21 02/01/21 10:00 History Quetiapine Fumarate [QUEtiapine 300 mg PO DAILY 03/30/14 04/24/21 01/30/21 21:00 History Fumarate] Rosuvastatin (Nf) [Crestor] 20 mg PO DAILY 03/30/14 04/24/21 12/05/20 20:00 History clonazePAM 2 mg PO HS 03/30/14 04/24/21 01/31/21 23:00 History sitaGLIPtin [Januvia] 50 mg PO DAILY 03/30/14 04/24/21 01/30/21 08:30 History Promethazine [Phenergan] 25 mg PO Q6H PRN 05/28/14 04/24/21 12/05/20 20:00 History Furosemide [Lasix] 40 mg PO DAILY 05/29/14 04/24/21 02/01/21 10:00 History levoFLOXacin [Levaquin] 250 mg PO QDAY #3 tablet 02/03/21 04/24/21 Unknown Rx Active Medications: Generic Name Dose Route Start Last Admin Trade Name Freq PRN Reason Stop Dose Admin Acetaminophen 650 mg 04/22/21 04:47 04/22/21 07:05 Acetaminophen 325 Mg Tab PO 650 mg Q4H PRN Administration Pain MILD(1-3)/Fever >100.5/LOBATO Albuterol 2.5 mg 04/22/21 04:47 Albuterol 2.5 Mg/3 Ml Nebu IH Q4HRT PRN Shortness Of Breath Lipase/Protease/Amylase 1 each 04/26/21 12:29 Lipase 10,500/Protease 25,000/Amylase 43,750 (Units) Dr Frias FEEDTUBE PRN PRN For Clogged Feeding Tube Aspirin 81 mg 04/22/21 10:00 04/28/21 09:39 Aspirin 81 Mg Tab Chew PO 81 mg DAILY JEAN-PAUL Administration Atorvastatin Calcium 40 mg 04/22/21 22:00 04/27/21 23:32 Atorvastatin 40 Mg Tab PO 40 mg QHS JEAN-PAUL Administration Clonazepam 1 mg 04/26/21 22:00 04/27/21 23:32 Clonazepam 2 Mg Tab PO 1 mg HS JEAN-PAUL Administration Dexamethasone 6 mg 04/23/21 10:00 04/28/21 09:39 Dexamethasone 4 Mg Tab PO 05/01/21 10:01 6 mg DAILY JEAN-PAUL Administration Dextrose 0 ml 04/26/21 09:04 Dextrose 10% *Hypoglycemia IV PRN PRN Hypoglycemia Dextrose 50 ml 04/28/21 10:28 Dextrose 50% In Water (25gm) 50 Ml Syringe IV Q30MIN PRN Hypoglycemia Protocol Famotidine 20 mg 04/28/21 10:00 04/28/21 09:39 Famotidine 20 Mg/2 Ml Inj IV 20 mg QAM JEAN-PAUL Administration Fentanyl 50 mcg 04/28/21 19:11 Fentanyl 100 Mcg/2 Ml Inj IV Q10MIN PRN ANALGESIA Furosemide 40 mg 04/22/21 10:00 04/28/21 09:39 Furosemide 40 Mg Tab PO 40 mg DAILY JEAN-PAUL Administration Heparin Sodium (Porcine) 5,000 unit 04/22/21 06:00 04/28/21 13:12 Heparin 5,000 Unit/1 Ml Vial SUB-Q 5,000 unit Q8HR JEAN-PAUL Administration Heparin Sodium (Porcine) 3,000 unit 04/22/21 22:34 Heparin 10,000 Units/10 Ml Vial IV MARYLU PRN hemodialysis Hydralazine HCl 10 mg 04/22/21 04:51 Hydralazine 20 Mg/1 Ml Inj IV Q6H PRN Blood Pressure Hydromorphone HCl 0.5 mg 04/22/21 04:47 Hydromorphone 1 Mg/1 Ml Inj IV Q3H PRN Pain , Severe (7-10) Hydrophilic Ointment 1 applic 04/27/21 22:36 Lip Therapy Vaseline TP Q2HR PRN Dry Lips Sodium Chloride 100 mls @ 999 mls/hr 04/22/21 22:34 Nacl 0.9% IV MARYLU PRN Hypotension Dextrose/Sodium Chloride 1,000 mls @ 40 mls/hr 04/25/21 16:00 04/25/21 23:59 D5ns IV 40 mls/hr DIRECT JEAN-PAUL Administration Propofol 1,000 mg in 100 mls @ 2.04 mls/hr 04/27/21 23:00 04/28/21 19:31 Diprivan 10 Mg/Ml IV 30 mcg/kg/min TITR JEAN-PAUL 12.24 mls/hr Administration Protocol 5 MCG/KG/MIN Fentanyl Citrate 2,000 mcg in 100 mls @ 3.4 mls/hr 04/28/21 20:00 04/28/21 19:22 Fentanyl Drip Premix IV 1 mcg/kg/hr TITR JEAN-PAUL 3.4 mls/hr Administration Protocol 1 MCG/KG/HR NORepinephrine/NS 8 MG-250 ML 8 mg in 250 mls @ 3.75 mls/hr 04/28/21 20:00 Norepinephrine/Ns 8 Mg-250 Ml (Double Conc) IV TITRATE [facility] Protocol 2 MCG/MIN Insulin Glargine 10 units 04/28/21 22:00 Insulin Glargine 100 Units/Ml SUB-Q QHS [facility] Insulin Human Lispro 0 unit 04/28/21 12:00 04/28/21 18:44 Insulin Lispro 100 Unit/Ml SUB-Q 4 unit Q6HR [facility] Administration Protocol Levothyroxine Sodium 88 mcg 04/22/21 06:00 04/28/21 07:52 Levothyroxine 88 Mcg Tab PO 88 mcg DAILY@0600 [facility] Administration Metoprolol Tartrate 50 mg 04/22/21 10:00 04/28/21 09:39 Metoprolol Tartrate 50 Mg Tab PO 50 mg DAILY [facility] Administration Midazolam HCl 5 mg 04/28/21 20:00 04/28/21 19:18 Midazolam 5 Mg/5 Ml Inj Mdv IV 04/29/21 19:59 5 mg ONCE NR Administration Montelukast Sodium 10 mg 04/22/21 10:00 04/28/21 13:12 Montelukast 10 Mg Tab PO 10 mg DAILY JEAN-PAUL Administration Morphine Sulfate 2 mg 04/22/21 04:47 04/23/21 19:54 Morphine 2 Mg/1 Ml Inj IV 2 mg Q4H PRN Administration Pain, Moderate (4-6) Multi-Ingred Cream/Lotion/Oil/Oint 1 applic 04/27/21 22:36 Mineral Oil/Petrolatum, White Ophth Oint 3.5 Gm OU Q4HR PRN Dry Eye(s) Ondansetron HCl 4 mg 04/22/21 04:47 Ondansetron 4 Mg/2 Ml Inj IV Q8H PRN Nausea And Vomiting Senna/Docusate Sodium 1 tab 04/28/21 10:00 04/28/21 09:39 Sennosides/Docusate Sodium 8.6/50 Mg Tab FEEDTUBE 1 tab BID JEAN-PAUL Administration Simple Syrup 15 ml 04/26/21 12:29 Simple Syrup 15 Ml FEEDTUBE PRN PRN Hypoglycemia Simple Syrup 30 ml 04/26/21 12:29 Simple Syrup 15 Ml FEEDTUBE PRN PRN Hypoglycemia Sodium Bicarbonate 325 mg 04/26/21 12:29 Sodium Bicarbonate 325 Mg Tab FEEDTUBE PRN PRN For Clogged Feeding Tube Sodium Chloride 10 ml 04/22/21 10:00 04/28/21 09:40 Sodium Chloride 0.9% 10 Ml Flush Syringe IV 10 ml BID JEAN-PAUL Administration Sodium Chloride 10 ml 04/22/21 04:47 Sodium Chloride 0.9% 10 Ml Flush Syringe IV PRN PRN LINE FLUSH
[2021-04-28] MEDS ORDERED: MIDAZOLAM 5 MG/5 ML INJ MDV IV NR (20:00)
[2021-04-28] MEDS ORDERED: fentaNYL DRIP Premix 2,000 MCG/100 ML BAG IV SCH (20:00)
[2021-04-28] MEDS ORDERED: NORepinephrine/NS 8 MG-250 ML 8 MG/250 ML INFUS..BTL IV SCH (20:00)
[2021-04-28 20:03] LABS: ABG Base Excess -6.8 mmol/L (-2.0-3.0); ABG HCO3 16.9 mmol/L (20.0-26.0); ABG Methemoglobin 0.4 % (0.0-1.5); ABG Oxygen Saturation 96.6 % (95.0-99.0); ABG PCO2 27.6 mm Hg; ABG PH 7.405 pH Units (7.350-7.450); ABG PO2 83.1 mm Hg (80.0-90.0)
--- NOTE | 2021-04-28 20:13 | Electrocardiograph Report ---
[facility] Test Date: 2021-04-22 Test Time: 05:45:14 Pat Name: MARYSOL COMER Department: Room: A251 Gender: F Certified Nurse Practitioner: PERCY : 1940 Requested By: CARINA CAMPUZANO Order Number: [id number] Reading MD: Anoop Reis Measurements Intervals [place] Rate: 111 P: LA: QRS: -24 QRSD: 69 T: 55 QT: 297 QTc: 405 Interpretive Statements Atrial fibrillation Left ventricular hypertrophy PRWP [id number] Compared to ECG 12/05/2020 14:53:49 Left ventricular hypertrophy now present Sinus bradycardia no longer present Prolonged QT interval no longer present Electronically Signed On 04-28-2021 20:12:48 EST by Anoop Reis
--- NOTE | 2021-04-28 21:27 | XRay Report ---
CHEST 1 VIEW INDICATION / CLINICAL INFORMATION: tachypnea, COVID resp failure. COMPARISON: Earlier same day FINDINGS: SUPPORT DEVICES: Unchanged. HEART / MEDIASTINUM: Stable. LUNGS / PLEURA: Mild interval improvement in bibasilar lung aeration with persistent bibasilar airspa ce disease. No pneumothorax. ADDITIONAL FINDINGS: No significant additional findings. IMPRESSION: 1. Interval improvement. Signer Name: Sarbjit Keating MD Signed: 04/28/2021 9:23 PM Workstation Name: [id number]
[2021-04-28] MEDS ORDERED: INSULIN GLARGINE 100 UNITS/ML SUB-Q SCH (22:00)
[2021-04-29] MEDS: INSULIN LISPRO 100 UNIT/ML SUB-Q SCH (00:30)
[2021-04-29] MEDS ORDERED: ATROPINE 0.1% (1 MG/10 ML) CARDIAC SYRINGE ONE (00:32)
[2021-04-29] MEDS ORDERED: VASOPRESSIN 20 UNIT in SODIUM CHLORIDE 0.9% 100 ML IV SCH (01:00)
[2021-04-29] MEDS ORDERED: SODIUM CHLORIDE 0.9% 1000 ML 500 ML IV ONE (01:42)
[2021-04-29] MEDS ORDERED: PHENYLEPHRINE 100 MG in SODIUM CHLORIDE 0.9% 90 ML IV SCH (03:15)
--- NOTE | 2021-04-29 03:16 | Event Note ---
Date: 04/29/21 MELODIE KUHN called on 80-year-old -[place] female with known history of end-stage renal disease on dialysis who has been on admission for acute hypoxic respiratory failure. Resuscitative measures were commenced according to ACLS protocol. Patient had 5 rounds of epinephrine and 2 rounds of sodium bicarb. Blood glucose was 175. There was return of spontaneous circulation. However, family subsequently called to make patient DNR. Will place a DNR order.
[2021-04-29 03:29] VITALS: BP 86/14
--- NOTE | 2021-04-29 05:47 | Event Note ---
Date: 04/29/21 Called to pronounce 80-year-old female who had been made DNR by family. She has been on admission for acute hypoxic respiratory failure, COVID-19 pneumonia. Upon exam: No response to verbal or deep sternal rub. Patient feels feels and dilated. Chest: No breath sounds Cardiovascular exam: No heart sounds and no peripheral pulses Abdomen: No bowel sounds Extremities: Cold and clammy Central nervous system: No reflexes Patient pronounced at 4:25 AM on April 29, 2021. Family immediately notified.
== END 2021-04-29 05:30 | DRG 208 ==
LOC: ED 23:38 → 3A 04-22 04:47 → CC1 04-27 20:14
PROVIDERS: ADMIT Hospitalist; ATTEND Internal Medicine
PROC: 5A1D70Z Performance of Urinary Filtration, Intermittent, Less than 6 Hours Per Day (ICD-10-PCS; 2021-04-23)
PROC: 5A1D70Z Performance of Urinary Filtration, Intermittent, Less than 6 Hours Per Day (ICD-10-PCS; 2021-04-25)
PROC: 5A09357 Assistance with Respiratory Ventilation, Less than 24 Consecutive Hours, Continuous Positive Airway Pressure (ICD-10-PCS; 2021-04-26)
PROC: 5A1945Z Respiratory Ventilation, 24-96 Consecutive Hours (ICD-10-PCS; principal; 2021-04-27)
PROC: 0BH17EZ Insertion of Endotracheal Airway into Trachea, Via Natural or Artificial Opening (ICD-10-PCS; 2021-04-27)
PROC: 06HM33Z Insertion of Infusion Device into Right Femoral Vein, Percutaneous Approach (ICD-10-PCS; 2021-04-27)
PROC: B54BZZA Ultrasonography of Right Lower Extremity Veins, Guidance (ICD-10-PCS; 2021-04-27)
PROC: 5A1D70Z Performance of Urinary Filtration, Intermittent, Less than 6 Hours Per Day (ICD-10-PCS; 2021-04-27)
PROC: 4A033R1 Measurement of Arterial Saturation, Peripheral, Percutaneous Approach (ICD-10-PCS; 2021-04-28)
DX: U07.1 COVID-19 (principal); J96.01 Acute respiratory failure with hypoxia; J12.82 Pneumonia due to coronavirus disease 2019; N18.6 End stage renal disease; I12.0 Hypertensive chronic kidney disease with stage 5 chronic kidney disease or end stage renal disease; G93.40 Encephalopathy, unspecified; I47.1 Supraventricular tachycardia; Z99.2 Dependence on renal dialysis; E11.649 Type 2 diabetes mellitus with hypoglycemia without coma; D64.9 Anemia, unspecified; E11.22 Type 2 diabetes mellitus with diabetic chronic kidney disease; I25.10 Atherosclerotic heart disease of native coronary artery without angina pectoris; Z66 Do not resuscitate; E78.5 Hyperlipidemia, unspecified; Z86.73 Personal history of transient ischemic attack (TIA), and cerebral infarction without residual deficits; E11.65 Type 2 diabetes mellitus with hyperglycemia
CPT/HCPCS: 36415; 36600; 70450; 70551; 71045; 72125; 74018; 78580; 80048; 80053; 80074; 82140; 82728; 82803; 82962; 83615; 83735; 84100; 84145; 85025; 85027; 85379; 86140; 87040; 87641; 93005; 93970; 94002; 94003; 94640; 94644; 94660; 94760; 95819; G0378; J2354; J3490; Q0162; Q0177; Q9967; A9540; J0456; J0461; J0696; J1100; J1644; J1815; J2060; J2250; J2270; J2370; J2704; J3010; J7030; J7042; J8540; U0003